=== PATIENT | male | born 1975 | race African-American/Black ===

== ENCOUNTER 2016-09-10 09:40 | Inpatient (IN) | payer MEDICARE, OTHER ==
[~2016-09-10] VITALS: Ht 177.8 cm; Wt 86.2 kg
[2016-09-10] VITALS (14 sets, daily range): BP systolic 97–181; BP diastolic 49–100
[~2016-09-10 09:40] MED LIST: AMIO200T2 PO; IPRA0.2S5 NEB; LACO1TAB PO; LINE600T PO; LORA2TAB IV; METO10TA81 IV
--- NOTE | 2016-09-10 14:41 | PDOC ---
Provider Note Provider Note dictated see orders REBEL LICONA MD Sep 10, 2016 14:41
[2016-09-10] MEDS ORDERED: PROPOFOL 10 MG/ML (100ML) VIAL. IV ONE (14:46)
[2016-09-10] MEDS ORDERED: PROPOFOL 100 ML IV ONE (14:46)
[2016-09-10 14:57] LABS: BASO # 0.1 x10^3/uL (0.0-0.2); BASO % 1 % (0-3); EOS % 3 % (0-3); HEMATOCRIT 28.6 % (39.0-53.0); HEMOGLOBIN 9.4 g/dL (13.0-17.5); LYMPH % 21 % (24-48); MEAN CORPUSCULAR HEMOGLOBIN 30 pg (25-35); MEAN CORPUSCULAR HGB CONC 33 g/dL (31-37); MEAN CORPUSCULAR VOLUME 90 fL (79-100); MONO % 8 % (0-9); NEUT % 67 % (31-73); PLATELET COUNT 274 x10^3/uL (140-400); RED BLOOD COUNT 3.19 x10^6/uL (4.30-5.70); RED CELL DISTRIBUTION WIDTH 15.9 % (11.5-14.5); WHITE BLOOD COUNT 14.3 x10^3/uL (4.0-11.0)
--- NOTE | 2016-09-10 15:02 | EKG ---
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
[2016-09-10 15:08] LABS: CALCIUM 9.3 mg/dL (8.5-10.1); GFR 44.3; POTASSIUM 3.5 mmol/L (3.5-5.1)
[2016-09-10 15:14] LABS: ALBUMIN 2.2 g/dL (3.4-5.0); ALBUMIN/GLOBULIN RATIO 0.4 (1.0-1.7); MAGNESIUM 1.2 mg/dL (1.8-2.4); TOTAL BILIRUBIN 0.6 mg/dL (0.2-1.0); TOTAL PROTEIN 7.9 g/dL (6.4-8.2)
--- NOTE | 2016-09-10 15:24 | PDOC2 ---
CARDIAC CONSULT DATE OF CONSULT Date of Consult DATE: 09/10/16 TIME: 15:16 REASON FOR CONSULT Reason for Consult: HTN REFERRING PHYSICIAN Referring Physician: Raad SOURCE Source: Chart review HISTORY OF PRESENT ILLNESS HISTORY OF PRESENT ILLNESS This is a 41 yo male who initially underwent thoracic aneurysm repair at [facility] 04/2016. Postoperative complications included respiratory failure requiring tracheostomy, acute renal failure, sepsis, and pneumonia. Also suffered large left sided CVA resulting in right-sided hemiplegia. Patient was transferred to [facility]. While at [facility], patient developed PICC line infection with speudomonas and was transferred to [facility] for treatment of sepsis and line removal. Was transferred to [facility] upon discharge for continued antibiotic therapy and trach management. Abdominal CT 09/04/16 notable for small bowel obstruction. Patient transferred to [facility] for further surgical evaluation and possible sepsis. BP 180/86 upon admission. Consult obtained for pre-op eval and hypertension. PAST MEDICAL HISTORY Cardiovascular: CHF, HTN, Hyperlipidemia, Other (thoracic aortic aneurysm) Pulmonary: Pneumonia, Other (chronic respiratory failure) CENTRAL NERVOUS SYSTEM: CVA (initial 11/2015; right side hemiparesis 04/2016), Seizure GI: Other (dysphagia; partial SBO) Heme/Onc: Anemia NOS, Other (LUE DVT) Hepatobiliary: Other (pancreatic syst) Infectious disease: Other (Sepsis; psuedomonas) Renal/: Chronic renal failure (ESRD) Endocrine: Diabetes PAST SURGICAL HISTORY Past Surgical History: Other (PEG placement; tracheostomy;thoracic aneurysm repair 04/23/2016 ) FAMILY HISTORY Family History: Diabetes, Hypertension SOCIAL HISTORY Smoke: Quit ALCOHOL: none Drugs: None Lives: Jail ALLERGIES ALLERGIES: Coded Allergies: aspirin (Verified Allergy, Intermediate, 09/07/16) ROS Review of System unobtainable PHYSICAL EXAM General: Other (eyes open, does not follow commands) HEENT: Atraumatic, Mucous membr. moist/pink, Other (tracheostomy ) Lungs: Other (coarse lung sounds; mechanical ventillation ) Heart: Regular rate, Normal S1, Normal S2, Other (distant heart tones) Abdomen: Soft, Other (distended, PEG tube in place ) Extremities: No edema, Normal pulses Skin: No significant lesion Neuro: Other (unable to assess ) Psych/Mental Status: Other (awake, calm ) MUSCULOSKELETAL: Other (right forearm and wrist splint, right-sided weakness) LABS Lab: Laboratory Tests Test 09/10/16 14:45 White Blood Count 14.3x10^3/uL (4.0-11.0) Red Blood Count 3.19x10^6/uL (4.30-5.70) Hemoglobin 9.4g/dL (13.0-17.5) Hematocrit 28.6% (39.0-53.0) Mean Corpuscular Volume 90fL (79-100) Mean Corpuscular Hemoglobin 30pg (25-35) Mean Corpuscular Hemoglobin Concent 33g/dL (31-37) Red Cell Distribution Width 15.9% (11.5-14.5) Platelet Count 274x10^3/uL (140-400) Neutrophils (%) (Auto) 67% (31-73) Lymphocytes (%) (Auto) 21% (24-48) Monocytes (%) (Auto) 8% (0-9) Eosinophils (%) (Auto) 3% (0-3) Basophils (%) (Auto) 1% (0-3) Neutrophils # (Auto) 9.6x10^3uL (1.8-7.7) Lymphocytes # (Auto) 3.0x10^3/uL (1.0-4.8) Monocytes # (Auto) 1.2x10^3/uL (0.0-1.1) Eosinophils # (Auto) 0.4x10^3/uL (0.0-0.7) Basophils # (Auto) 0.1x10^3/uL (0.0-0.2) Sodium Level 144mmol/L (136-145) Potassium Level 3.5mmol/L (3.5-5.1) Chloride Level 111mmol/L (98-107) Carbon Dioxide Level 22mmol/L (21-32) Anion Gap 11 (6-14) Blood Urea Nitrogen 29mg/dL (8-26) Creatinine 2.0mg/dL (0.7-1.3) Estimated GFR (Cockcroft-Gault) 44.3 BUN/Creatinine Ratio 15 (6-20) Glucose Level 100mg/dL (70-99) Calcium Level 9.3mg/dL (8.5-10.1) Magnesium Level 1.2mg/dL (1.8-2.4) Total Bilirubin 0.6mg/dL (0.2-1.0) Aspartate Amino Transf (AST/SGOT) 17U/L (15-37) Alanine Aminotransferase (ALT/SGPT) 17U/L (16-63) Alkaline Phosphatase 93U/L (46-116) Total Protein 7.9g/dL (6.4-8.2) Albumin 2.2g/dL (3.4-5.0) Albumin/Globulin Ratio 0.4 (1.0-1.7) ASSESSMENT/PLAN ASSESSMENT/PLAN 1. Hypertension 2. Small bowl obstruction 3. Sepsis 4. Chronic respiratory failure s/p tracheostomy 5. Chronic heart failure: clinically compensated 6. h/o AFIB?: on Amiodarone 7. h/o CVA 8. Diabetes Recommendations Obtain echo for preop eval Hold Amiodarone pending echo results. Obtain cardiac records from [place] stop clonidine and start metoprolol IV. Hydralazine IV PRN for hypertension Supportive care Problems: CLEO SIMEON APRN Sep 10, 2016 15:24
[2016-09-10 15:25] LABS: INR 1.2 (0.8-1.1); PROTHROMBIN TIME PATIENT 14.2 SEC (11.7-14.0)
--- NOTE | 2016-09-10 15:39 | CONS ---
DATE OF CONSULTATION: ATTENDING PHYSICIAN: Dr. Jane Shankar. REASON FOR CONSULTATION: Respiratory failure, small-bowel obstruction, possible sepsis. HISTORY OF PRESENT ILLNESS: The patient is a 41-year-old -[place] male, who has a history of thoracic aortic aneurysm repair in mid-April at [facility]. Postoperatively, he developed respiratory failure requiring tracheostomy and ventilator dependence. He had acute renal failure, sepsis and pneumonia. He subsequently also underwent PEG tube placement. He had a large left-sided CVA resulting in right-sided hemiplegia. He also had persistent encephalopathy. He was at [facility], where he subsequently was weaned off the ventilator to my recollection. However, his clinical condition from a neurological standpoint did not improve. He was then transferred to [facility] due to Pseudomonas line sepsis. His tunnel catheter was removed. He was treated with broad spectrum antibiotics and then transferred to [facility]. The patient is now being brought to [facility] due to development of a small-bowel obstruction, possible sepsis. He appears to be tachypneic ____ trach shield, but his abdominal distended. His blood pressure is in the 180 systolic. PAST MEDICAL HISTORY: History of pseudomonas sepsis due to CLABSI central line associated bloodstream infection, history of seizure disorder, history of massive stroke in 04/2016 with right-sided hemiparesis, history of renal failure, history of diabetes, history of persistent vegetative state, history of heart failure, history of pancreatic cyst history of infarction of the spleen, hematoma in the right colon, history of end-stage renal disease on hemodialysis, previously had been on the ventilator and has tracheostomy. PAST SURGICAL HISTORY: PEG tube and tracheostomy and AAA repair in 2016. ALLERGIES: TO ASPIRIN. REVIEW OF SYSTEMS: Unable to obtain from the patient. MEDICATIONS ON TRANSFER: Reviewed. PHYSICAL EXAMINATION: GENERAL: He is tachypneic and does not follow commands, but opens his eyes. HEENT: Sclerae is nonicteric. NECK: Supple. He has a dirty wound on his central line on the right side. LUNGS: With coarse rhonchi. CARDIOVASCULAR: Regular rate and tachycardia. ABDOMEN: Distended, decreased bowel sounds. EXTREMITIES: With trace pitting edema. LABORATORY DATA: From [facility] showed a white cell count of 13.0, hemoglobin 8.4 and platelets are 357. BUN 28, creatinine 1.8. IMPRESSION: 1. Oltcw-uv-fugjzor respiratory failure, suspect secondary to suspected sepsis/small-bowel obstruction. At this point, since he is tachypneic. I will place him on the ventilator. 2. 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 3. History of fungemia and sepsis. 4. Pneumonia. 5. History of congestive heart failure. 6. Recent small-bowel obstruction with early sepsis. 7. History of cardiac arrhythmias on amiodarone. 8. History of right upper extremity deep venous thrombosis. 9. Anemia. RECOMMENDATIONS: 1. We will place the patient on the ventilator. 2. Obtain ABGs and make necessary adjustment. 3. Mild sedation and narcotics. 4. Surgical consult. 5. Infectious disease consult and follow recommendation. 6. Follow cardiology recommendations. 7. Obtain lab CBC and lactic acid. 8. Follow renal function. 9. At some point, we will do follow up on upper extremity Dopplers. 10. SCDs for Deep venous thrombosis prophylaxis. 11. Enteral nutrition on hold due to small-bowel obstruction. 12. Further recommendations to follow. Discussed with RN and RT. Critical care time 39 minutes. REBEL LICONA MD DR: ALEX/lizette JOB#: [id number] / [id number] CITLALI
--- NOTE | 2016-09-10 16:01 | PDOC2 ---
GI CONSULT Reason For Consult: GI Bleed, Ileus HPI: HPI: 41 y/o AA male transferred to ICU from [facility] where he was undergoing treatment for line sepsis (pseudomonas). PMH as below, significant for trach and PEG in place. RN able to provide some history - apparently transferred for increased abdominal distention w/ h/o partial SBO on CT on 09/04/16. Feedings currently held. Last BM 09/08. Apparently bleeding is not a concern at this time. Pulm has seen, abd x-rays are pending, along w/ additional consults. EGD 08/29/[address] Shankar: LA Grade C reflux esophagitis, gastrostomy in place, non-bleeding gastric ulcer (biopsy w/ reactive gastropathy and negative for H. pylori), non-bleeding duodenal ulcer, and normal examined jejunum. At that time , PPI BID was recommended. Hgb 9.4 today, from 7.1 on 09/09, and 8.7 on 09/02. PMH: PMH: From chart - CAD, CHF, HTN, cardiac arrhythmia, CVA, chronic respiratory failure , ESRD on HD, DM, seizure disorder, LUE DVT, splenic infarct w/ hematoma of right colon, pancreatic cyst, thoracic aneurysm repair, tracheostomy, PEG placement FH: Family History: No pertinent hx Social History: Smoke: No ALCOHOL: none Drugs: None ROS: Unobtainable. VItals: Vitals: Please see EMR. Labs: Labs: Laboratory Tests Test 09/10/16 14:45 White Blood Count 14.3x10^3/uL (4.0-11.0) Red Blood Count 3.19x10^6/uL (4.30-5.70) Hemoglobin 9.4g/dL (13.0-17.5) Hematocrit 28.6% (39.0-53.0) Mean Corpuscular Volume 90fL (79-100) Mean Corpuscular Hemoglobin 30pg (25-35) Mean Corpuscular Hemoglobin Concent 33g/dL (31-37) Red Cell Distribution Width 15.9% (11.5-14.5) Platelet Count 274x10^3/uL (140-400) Neutrophils (%) (Auto) 67% (31-73) Lymphocytes (%) (Auto) 21% (24-48) Monocytes (%) (Auto) 8% (0-9) Eosinophils (%) (Auto) 3% (0-3) Basophils (%) (Auto) 1% (0-3) Neutrophils # (Auto) 9.6x10^3uL (1.8-7.7) Lymphocytes # (Auto) 3.0x10^3/uL (1.0-4.8) Monocytes # (Auto) 1.2x10^3/uL (0.0-1.1) Eosinophils # (Auto) 0.4x10^3/uL (0.0-0.7) Basophils # (Auto) 0.1x10^3/uL (0.0-0.2) Prothrombin Time 14.2SEC (11.7-14.0) Prothromb Time International Ratio 1.2 (0.8-1.1) Sodium Level 144mmol/L (136-145) Potassium Level 3.5mmol/L (3.5-5.1) Chloride Level 111mmol/L (98-107) Carbon Dioxide Level 22mmol/L (21-32) Anion Gap 11 (6-14) Blood Urea Nitrogen 29mg/dL (8-26) Creatinine 2.0mg/dL (0.7-1.3) Estimated GFR (Cockcroft-Gault) 44.3 BUN/Creatinine Ratio 15 (6-20) Glucose Level 100mg/dL (70-99) Calcium Level 9.3mg/dL (8.5-10.1) Magnesium Level 1.2mg/dL (1.8-2.4) Total Bilirubin 0.6mg/dL (0.2-1.0) Aspartate Amino Transf (AST/SGOT) 17U/L (15-37) Alanine Aminotransferase (ALT/SGPT) 17U/L (16-63) Alkaline Phosphatase 93U/L (46-116) Total Protein 7.9g/dL (6.4-8.2) Albumin 2.2g/dL (3.4-5.0) Albumin/Globulin Ratio 0.4 (1.0-1.7) Allergies: Coded Allergies: aspirin (Verified Allergy, Intermediate, 09/07/16) Medications: Please see EMR. Imaging: Imaging: Acute Abd Series 09/10/[address] A/P 09/04/16 IMPRESSION: 1. Mild distention of multiple mid small bowel loops suggesting partial small bowel obstruction. 2. Small cystic lesion in pancreatic tail, likely representing a small pseudocyst in this patient with a history of pancreatitis. A cystic pancreatic neoplasm cannot be excluded. 3. Tiny pleural effusions. 4. The NG tube, gastrostomy tube and Schaefer catheter are in satisfactory positions as described above. Upper GI and SB x-ray 08/23/16 IMPRESSION: 1. The NG tube and gastrostomy tube are in satisfactory positions. 2. Slow contrast emptying from the stomach. 3. Moderate gastroesophageal reflux. 4. Gaseous distention of small bowel loops with slow small bowel transit which may reflect an ileus or partial obstruction. Delayed abdominal radiographs are suggested for further evaluation. PE: GEN: NAD, having echocardiogram HEENT: atraumatic LUNGS: trach HEART: RRR ABD: BS quiet, probably distended, PEG in place w/ abd binder, ?non-tender EXTREMITY: no edema SKIN: no rashes NEURO/PSYCH: eyes open A/P: A/P: Abd distention -previous imaging w/ partial SBO -reports of increased distention at [facility] w/ last BM 09/[address] -feedings held currently Resp failure w/ trach, on vent PUD -non-bleeding gastric and duodenal ulcers on EGD 08/29/16 w/ Dr. Shankar Anemia -- Agree w/ holding feedings, NG to suction. Will review w/ Dr. Chase. Seems needs PPI w/ PUD. JOANN GIBBS Sep 10, 2016 16:01
--- NOTE | 2016-09-10 16:05 | RAD ---
EXAM: Two view abdomen with one view chest HISTORY: Small bowel obstruction. COMPARISON: 08/31/2016, 09/04/2016. FINDINGS: A frontal view of the chest and supine/upright views of the abdomen are obtained. There are no confluent infiltrates. There is mild atelectasis in the left base. There is no pneumothorax or pleural effusion. The heart is mildly enlarged. A right internal jugular central venous catheter has its tip in the superior cavoatrial junction A nasogastric tube has its tip in the stomach. A tracheostomy appliance is in expected position. Median sternotomy wires are noted. There is no pneumoperitoneum. Multiple moderately distended loops of small bowel persist in the mid and left abdomen. There is contrast in the right colon and rectum from a prior procedure. A gastrostomy catheter is noted. There is a small amount of gas distally. IMPRESSION: 1. No confluent infiltrates. Mild cardiomegaly. 2. Persistent small bowel dilatation with contrast distally in the colon. This suggests small bowel ileus or partial small bowel obstruction.
[2016-09-10] MEDS ORDERED: hydrALAZINE 20 MG/ML VIAL. IVP PRN (16:15)
--- NOTE | 2016-09-10 16:32 | CARD ---
APPROVED REPORT EXAM: Two-dimensional and M-mode echocardiogram with Doppler and color Doppler. Other Information Quality : GoodHR: 98bpm Rhythm : NSR INDICATION Chest Pain 2D DIMENSIONS RVDd1.9 (2.9-3.5cm)Left Atrium(2D)3.7 (1.6-4.0cm) IVSd1.3 (0.7-1.1cm)LVDd4.9 (3.9-5.9cm) LVOT Diameter2.4 (1.8-2.4cm)PWd1.2 (0.7-1.1cm) LVDs3.6 (2.5-4.0cm)FS (%) 26.0 % SV57.5 mlLVEF(%)50.8 (>50%) Aortic Valve AoV Peak Nazario.141.3cm/sAoV VTI22.9cm AO Peak GR.8.0mmHgLVOT Peak Nazario.106.2cm/s AO Mean GR.4mmHgAVA (VMAX)3.37cm2 Mitral Valve MV E Fnvytbox53.3cm/sMV E Peak Gr.3mmHg MV A Jtlmhgec405.1cm/sMV E Mean Gr.1mmHg E/A Ratio0.7MV A Flaljnmr32lb Pulmonary Valve PV Peak Vyxqbplr598.7cm/s Pulmonary Vein S1 Bfswdmkw18.9cm/sD2 Zqpyzzhp75.4cm/s PVa ixlaxrtd81wsis LEFT VENTRICLE The left ventricle is normal size. There is normal left ventricular wall thickness. The left ventricu lar systolic function is normal and the ejection fraction is within normal range. The Ejection Fracti on is 50-55%. Abnormal septal wall motion is noted suggestive of prior infarct/conduction abnormality . Transmitral Doppler flow pattern is Grade I-abnormal relaxation pattern. RIGHT VENTRICLE The right ventricle is normal size. There is normal right ventricular wall thickness. The right ventr icular systolic function is normal. ATRIA The left atrium size is normal. The right atrium size is normal. A catheter is seen in the right atri um consistent with history. The interatrial septum is intact with no evidence for an atrial septal de fect or patent foramen ovale as noted on 2-D or Doppler imaging. AORTIC VALVE The aortic valve is mildly thickened. The aortic valve is trileaflet. Doppler and Color Flow revealed no significant aortic regurgitation. There is no significant aortic valvular stenosis. MITRAL VALVE Mitral annular calcification is mild. The mitral valve leaflets are thickened. There is no evidence o f mitral valve prolapse. There is no mitral valve stenosis. Doppler and Color Flow revealed trace steffi ral regurgitation. TRICUSPID VALVE The tricuspid valve is normal in structure and function. Doppler and Color Flow revealed no tricuspid valve regurgitation noted. There is no tricuspid valve stenosis. PULMONIC VALVE Doppler and Color Flow revealed no pulmonic valvular regurgitation. There is no pulmonic valvular shelia nosis. GREAT VESSELS The aortic root is normal in size. The ascending aorta is normal in size. A subcostal window was not available, the IVC could not be assessed. PERICARDIAL EFFUSION There is no evidence of significant pericardial effusion. Critical Notification Critical Value: No <Conclusion> The left ventricular systolic function is normal and the ejection fraction is within normal range. Th e Ejection Fraction is 50-55%. Abnormal septal wall motion is noted suggestive of prior infarct/conduction abnormality. The right atrium size is normal. A catheter is seen in the right atrium consistent with history. Technically difficult study No clear valvular lesions noted.
[2016-09-10 16:51] LABS: HCO3 ABG 19 mmol/L (21-28); PCO2 ABG 35 mmHg (35-46); PH ABG 7.34 (7.35-7.45); PO2 ABG 203 mmHg (75-108); SAT O2 ABG 99 % (92-99)
[2016-09-10 16:54] LABS: FIO2 ABG 50
[2016-09-10] MEDS ORDERED: SODIUM BICARB ADULT 8.4% 50 MEQ/50 ML DISP.SYRIN. IV ONE (18:00)
[2016-09-10] MEDS: METOPROLOL TARTRATE 5 MG/5 ML VIAL. IVP SCH (18:00)
[2016-09-10] MEDS: PANTOPRAZOLE IV PUSH 40 MG VIAL. IVP SCH (18:20)
[2016-09-10] MEDS ORDERED: MAGNESIUM SULFATE 4GM 100 ML IV ONE (20:00)
[2016-09-10] MEDS: POTASSIUM CL 40MEQ IN 0.9%NACL 1,000 ML IV SCH (20:27)
[2016-09-10] MEDS: PROPOFOL 100 ML IV PRN (20:33)
[2016-09-10] MEDS ORDERED: 0.9 % SODIUM CHLORIDE 3ML DISP.SYRIN. IV PRN (20:45)
[2016-09-10] MEDS ORDERED: LORAZEPAM 2 MG/ML VIAL IV PRN (20:45)
[2016-09-10] MEDS ORDERED: ACETAMINOPHEN 650 MG/20.3 ML SOLUTION. PEG PRN (20:45)
[2016-09-10] MEDS ORDERED: ONDANSETRON PF 4 MG/2 ML VIAL. IV PRN (20:45)
[2016-09-10] MEDS ORDERED: FENTANYL PF 100 MCG/2 ML VIAL. IV PRN (20:45)
[2016-09-10] MEDS ORDERED: METOCLOPRAMIDE HCL 10 MG/2 ML VIAL. IV PRN (20:45)
[2016-09-10] MEDS: MICAFUNGIN 100 MG in IV DEXTROSE 5% 100 ML IV SCH (20:57)
[2016-09-10] MEDS ORDERED: MICONAZOLE NITRATE 2% TOPICAL CREAM 28GM TUBE. TP SCH (21:00)
[2016-09-10] MEDS ORDERED: ALTEPLASE 2 MG VIAL INT CAT ONE (22:00)
[2016-09-10] MEDS: CEFEPIME HCL 2 GM in IV NORMAL SALINE 100ML 100 ML IV SCH (22:43)
[2016-09-11] VITALS (22 sets, daily range): BP systolic 82–188; BP diastolic 46–96
[2016-09-11] MEDS: ERYTHROMYCIN LACT 125 MG in IV NORMAL SALINE 100ML 100 ML IV SCH ×4 (00:01→17:28)
[2016-09-11] MEDS ORDERED: IV NORMAL SALINE 500ML BAG 500 ML IV ONE (01:00)
[2016-09-11] MEDS: PROPOFOL 100 ML IV PRN ×3 (02:04→16:28)
[2016-09-11] MEDS ORDERED: IV NORMAL SALINE 1000ML BAG 1,000 ML IV ONE (02:30)
[2016-09-11] MEDS ORDERED: LORA0.5T IV (03:09)
[2016-09-11] MEDS ORDERED: FENT1PAT15 IV (03:09)
[2016-09-11] MEDS ORDERED: MICO130A9 TP (03:09)
[2016-09-11] MEDS ORDERED: ONDA4DIS IV (03:09)
[2016-09-11] MEDS ORDERED: AMIO200T2 PEG (03:09)
[2016-09-11] MEDS ORDERED: DOCU100C5 PEG (03:09)
[2016-09-11] MEDS ORDERED: AMLO10TA2 PEG (03:09)
[2016-09-11] MEDS ORDERED: ONDA4TAB12 PEG (03:09)
[2016-09-11] MEDS ORDERED: ACET160S PEG (03:09)
[2016-09-11] MEDS ORDERED: CEFE2VIA5 IV (03:09)
[2016-09-11] MEDS ORDERED: [UNRECOGNIZED DRUG - CODE] IV (03:09)
[2016-09-11] MEDS ORDERED: HYDR-2867 IV (03:09)
[2016-09-11] MEDS ORDERED: PANT40TA5 IV (03:09)
[2016-09-11] MEDS ORDERED: [UNRECOGNIZED DRUG - CODE] IV (03:09)
[2016-09-11] MEDS ORDERED: IPRA3AMP NEB (03:09)
[2016-09-11] MEDS ORDERED: METO10TA81 IV (03:09)
[2016-09-11] MEDS: POTASSIUM CL 40MEQ IN 0.9%NACL 1,000 ML IV SCH (06:07)
[2016-09-11] MEDS: METOCLOPRAMIDE HCL 10 MG/2 ML VIAL. IV SCH ×3 (06:11→22:08)
[2016-09-11] MEDS: PANTOPRAZOLE IV PUSH 40 MG VIAL. IVP SCH ×2 (06:12→17:33)
[2016-09-11 06:20] LABS: BASO # 0.1 x10^3/uL (0.0-0.2); BASO % 1 % (0-3); EOS % 5 % (0-3); HEMATOCRIT 25.1 % (39.0-53.0); HEMOGLOBIN 8.5 g/dL (13.0-17.5); LYMPH # 3.3 x10^3/uL (1.0-4.8); LYMPH % 31 % (24-48); MEAN CORPUSCULAR HEMOGLOBIN 30 pg (25-35); MEAN CORPUSCULAR HGB CONC 34 g/dL (31-37); MEAN CORPUSCULAR VOLUME 89 fL (79-100); MONO % 11 % (0-9); NEUT % 53 % (31-73); PLATELET COUNT 275 x10^3/uL (140-400); RED BLOOD COUNT 2.83 x10^6/uL (4.30-5.70); RED CELL DISTRIBUTION WIDTH 16.7 % (11.5-14.5); WHITE BLOOD COUNT 10.6 x10^3/uL (4.0-11.0)
[2016-09-11] MEDS: METOPROLOL TARTRATE 5 MG/5 ML VIAL. IVP SCH ×4 (06:20→17:30)
[2016-09-11 06:28] LABS: INR 1.3 (0.8-1.1)
[2016-09-11 06:30] LABS: ALBUMIN/GLOBULIN RATIO 0.4 (1.0-1.7); CALCIUM 9.1 mg/dL (8.5-10.1); CREATININE 2.6 mg/dL (0.7-1.3); GFR 32.8; MAGNESIUM 2.2 mg/dL (1.8-2.4); POTASSIUM 3.6 mmol/L (3.5-5.1); TOTAL BILIRUBIN 0.3 mg/dL (0.2-1.0); TOTAL PROTEIN 7.1 g/dL (6.4-8.2)
[2016-09-11] MEDS: hydrALAZINE 20 MG/ML VIAL. IVP SCH ×4 (06:33→17:28)
[2016-09-11] MEDS ORDERED: CEFAZOLIN 2GM PREMIX 50 ML IV PRN (07:00)
--- NOTE | 2016-09-11 07:19 | PDOC ---
Provider Note Provider Note Patient seen. History and Physical to follow. Prognosis is very poor. Surgery for persistent partial Small bowel obstruction not responding to aggressive conservative management. Patient remains high risk for surgery. Condition,Rx d/w . Patient is sleeping on Propofol. Labs,x rays reviewed.continue IV fluids ,antibiotics. KAYLIE FAJARDO MD Sep 11, 2016 07:19
[2016-09-11] MEDS ORDERED: PROPOFOL 20 ML IV ONE (07:36)
[2016-09-11] MEDS ORDERED: DEXAMETHASONE SOD PHOS 20 MG/5 ML VIAL. ONE (07:36)
[2016-09-11] MEDS ORDERED: ONDANSETRON PF 4 MG/2 ML VIAL. ONE (07:36)
--- NOTE | 2016-09-11 07:36 | PDOC ---
MODERATE SEDATION ASSESSMENT RISKS/ALTERNATIVES Risks/Alternatives Risks and alternatives of this type of sedation and procedure discussed with: RISK/ALTERNATIVES: Patient H & P ON CHART H & P H & P on chart and reviewed for co-morbid conditions and appropriate labs. H&P ON CHART: Yes STATUS PREG STATUS ASSESSED: N/A MEDS/ALLERGIES REVIEWED Meds/Allergies Reviewed Medications and Allergies including time and route of recently administered narcotics and sedatives. MEDS/ALLERGIES REVIEWED: Yes ASA RATING ASA RATING: II AIRWAY ASSESSMENT Airway Assessment Airway patency, oral function limitations, presence of caps, crowns, dentures, partials, and ability to extend neck assessed. AIRWAY ASSESSMENT: Yes MALLAMPATI SCORE MALLAMPATI SCORE: II PRE-SEDATION ASSESSMENT PRE-SEDATION ASSESSMENT: Yes ULICES RIVERA MD Sep 11, 2016 07:36
[2016-09-11] MEDS ORDERED: FENTANYL PF 100 MCG/2 ML VIAL. ONE (07:37)
[2016-09-11] MEDS ORDERED: DESFLURANE 61 TO 120 MINUTES IH ONE (07:37)
[2016-09-11] MEDS ORDERED: ROCURONIUM 50 MG/5 ML VIAL. ONE (07:37)
--- NOTE | 2016-09-11 07:56 | PDOC ---
SURGICAL PROGRESS NOTE Subjective 41 yo M with SBO vs ileus TO OR for lap vs open exploration R/B/A d/w pt's at bedside Thanks for consult! [id number] Vital Signs Vital Signs Date Time Temp Pulse Resp B/P Pulse Ox O2 Delivery O2 Flow Rate FiO2 09/11/16 07:00 70 16 82/46 100 Ventilator 09/11/16 05:00 97.9 97.9 I&O Intake and Output 09/11/16 07:00 Intake Total 2050 ml Output Total 1055 ml Balance 995 ml Intake Oral 0 ml IV Total 2050 ml Tube Feeding 0 ml Output Urine Total 555 ml Gastric Drainage Total 500 ml Labs Laboratory Tests Test 09/10/16 14:45 09/10/16 16:25 09/11/16 05:45 White Blood Count 14.3x10^3/uL (4.0-11.0) 10.6x10^3/uL (4.0-11.0) Red Blood Count 3.19x10^6/uL (4.30-5.70) 2.83x10^6/uL (4.30-5.70) Hemoglobin 9.4g/dL (13.0-17.5) 8.5g/dL (13.0-17.5) Hematocrit 28.6% (39.0-53.0) 25.1% (39.0-53.0) Mean Corpuscular Volume 90fL (79-100) 89fL (79-100) Mean Corpuscular Hemoglobin 30pg (25-35) 30pg (25-35) Mean Corpuscular Hemoglobin Concent 33g/dL (31-37) 34g/dL (31-37) Red Cell Distribution Width 15.9% (11.5-14.5) 16.7% (11.5-14.5) Platelet Count 274x10^3/uL (140-400) 275x10^3/uL (140-400) Neutrophils (%) (Auto) 67% (31-73) 53% (31-73) Lymphocytes (%) (Auto) 21% (24-48) 31% (24-48) Monocytes (%) (Auto) 8% (0-9) 11% (0-9) Eosinophils (%) (Auto) 3% (0-3) 5% (0-3) Basophils (%) (Auto) 1% (0-3) 1% (0-3) Neutrophils # (Auto) 9.6x10^3uL (1.8-7.7) 5.6x10^3uL (1.8-7.7) Lymphocytes # (Auto) 3.0x10^3/uL (1.0-4.8) 3.3x10^3/uL (1.0-4.8) Monocytes # (Auto) 1.2x10^3/uL (0.0-1.1) 1.1x10^3/uL (0.0-1.1) Eosinophils # (Auto) 0.4x10^3/uL (0.0-0.7) 0.5x10^3/uL (0.0-0.7) Basophils # (Auto) 0.1x10^3/uL (0.0-0.2) 0.1x10^3/uL (0.0-0.2) Prothrombin Time 14.2SEC (11.7-14.0) 15.0SEC (11.7-14.0) Prothromb Time International Ratio 1.2 (0.8-1.1) 1.3 (0.8-1.1) Nasal Screen MRSA (PCR) Negative (Negative) Sodium Level 144mmol/L (136-145) 146mmol/L (136-145) Potassium Level 3.5mmol/L (3.5-5.1) 3.6mmol/L (3.5-5.1) Chloride Level 111mmol/L (98-107) 114mmol/L (98-107) Carbon Dioxide Level 22mmol/L (21-32) 20mmol/L (21-32) Anion Gap 11 (6-14) 12 (6-14) Blood Urea Nitrogen 29mg/dL (8-26) 31mg/dL (8-26) Creatinine 2.0mg/dL (0.7-1.3) 2.6mg/dL (0.7-1.3) Estimated GFR (Cockcroft-Gault) 44.3 32.8 BUN/Creatinine Ratio 15 (6-20) 12 (6-20) Glucose Level 100mg/dL (70-99) 81mg/dL (70-99) Lactic Acid Level 1.0mmol/L (0.4-2.0) Calcium Level 9.3mg/dL (8.5-10.1) 9.1mg/dL (8.5-10.1) Magnesium Level 1.2mg/dL (1.8-2.4) 2.2mg/dL (1.8-2.4) Total Bilirubin 0.6mg/dL (0.2-1.0) 0.3mg/dL (0.2-1.0) Aspartate Amino Transf (AST/SGOT) 17U/L (15-37) 21U/L (15-37) Alanine Aminotransferase (ALT/SGPT) 17U/L (16-63) 16U/L (16-63) Alkaline Phosphatase 93U/L (46-116) 89U/L (46-116) Total Protein 7.9g/dL (6.4-8.2) 7.1g/dL (6.4-8.2) Albumin 2.2g/dL (3.4-5.0) 2.0g/dL (3.4-5.0) Albumin/Globulin Ratio 0.4 (1.0-1.7) 0.4 (1.0-1.7) O2 Saturation 99% (92-99) Arterial Blood pH 7.34 (7.35-7.45) Arterial Blood pCO2 at Patient Temp 35mmHg (35-46) Arterial Blood pO2 at Patient Temp 203mmHg (75-108) Arterial Blood HCO3 19mmol/L (21-28) Arterial Blood Base Excess -7mmol/L (-3-3) FiO2 50 Laboratory Tests Test 09/10/16 14:45 09/10/16 16:25 09/11/16 05:45 White Blood Count 14.3x10^3/uL (4.0-11.0) 10.6x10^3/uL (4.0-11.0) Red Blood Count 3.19x10^6/uL (4.30-5.70) 2.83x10^6/uL (4.30-5.70) Hemoglobin 9.4g/dL (13.0-17.5) 8.5g/dL (13.0-17.5) Hematocrit 28.6% (39.0-53.0) 25.1% (39.0-53.0) Mean Corpuscular Volume 90fL (79-100) 89fL (79-100) Mean Corpuscular Hemoglobin 30pg (25-35) 30pg (25-35) Mean Corpuscular Hemoglobin Concent 33g/dL (31-37) 34g/dL (31-37) Red Cell Distribution Width 15.9% (11.5-14.5) 16.7% (11.5-14.5) Platelet Count 274x10^3/uL (140-400) 275x10^3/uL (140-400) Neutrophils (%) (Auto) 67% (31-73) 53% (31-73) Lymphocytes (%) (Auto) 21% (24-48) 31% (24-48) Monocytes (%) (Auto) 8% (0-9) 11% (0-9) Eosinophils (%) (Auto) 3% (0-3) 5% (0-3) Basophils (%) (Auto) 1% (0-3) 1% (0-3) Neutrophils # (Auto) 9.6x10^3uL (1.8-7.7) 5.6x10^3uL (1.8-7.7) Lymphocytes # (Auto) 3.0x10^3/uL (1.0-4.8) 3.3x10^3/uL (1.0-4.8) Monocytes # (Auto) 1.2x10^3/uL (0.0-1.1) 1.1x10^3/uL (0.0-1.1) Eosinophils # (Auto) 0.4x10^3/uL (0.0-0.7) 0.5x10^3/uL (0.0-0.7) Basophils # (Auto) 0.1x10^3/uL (0.0-0.2) 0.1x10^3/uL (0.0-0.2) Prothrombin Time 14.2SEC (11.7-14.0) 15.0SEC (11.7-14.0) Prothromb Time International Ratio 1.2 (0.8-1.1) 1.3 (0.8-1.1) Nasal Screen MRSA (PCR) Negative (Negative) Sodium Level 144mmol/L (136-145) 146mmol/L (136-145) Potassium Level 3.5mmol/L (3.5-5.1) 3.6mmol/L (3.5-5.1) Chloride Level 111mmol/L (98-107) 114mmol/L (98-107) Carbon Dioxide Level 22mmol/L (21-32) 20mmol/L (21-32) Anion Gap 11 (6-14) 12 (6-14) Blood Urea Nitrogen 29mg/dL (8-26) 31mg/dL (8-26) Creatinine 2.0mg/dL (0.7-1.3) 2.6mg/dL (0.7-1.3) Estimated GFR (Cockcroft-Gault) 44.3 32.8 BUN/Creatinine Ratio 15 (6-20) 12 (6-20) Glucose Level 100mg/dL (70-99) 81mg/dL (70-99) Lactic Acid Level 1.0mmol/L (0.4-2.0) Calcium Level 9.3mg/dL (8.5-10.1) 9.1mg/dL (8.5-10.1) Magnesium Level 1.2mg/dL (1.8-2.4) 2.2mg/dL (1.8-2.4) Total Bilirubin 0.6mg/dL (0.2-1.0) 0.3mg/dL (0.2-1.0) Aspartate Amino Transf (AST/SGOT) 17U/L (15-37) 21U/L (15-37) Alanine Aminotransferase (ALT/SGPT) 17U/L (16-63) 16U/L (16-63) Alkaline Phosphatase 93U/L (46-116) 89U/L (46-116) Total Protein 7.9g/dL (6.4-8.2) 7.1g/dL (6.4-8.2) Albumin 2.2g/dL (3.4-5.0) 2.0g/dL (3.4-5.0) Albumin/Globulin Ratio 0.4 (1.0-1.7) 0.4 (1.0-1.7) O2 Saturation 99% (92-99) Arterial Blood pH 7.34 (7.35-7.45) Arterial Blood pCO2 at Patient Temp 35mmHg (35-46) Arterial Blood pO2 at Patient Temp 203mmHg (75-108) Arterial Blood HCO3 19mmol/L (21-28) Arterial Blood Base Excess -7mmol/L (-3-3) FiO2 50 BLU HODGSON MD Sep 11, 2016 07:56
[2016-09-11] MEDS ORDERED: CEFAZOLIN 2GM PREMIX 50 ML IV SCH (08:00)
--- NOTE | 2016-09-11 08:03 | PDOC1 ---
LUZ ELENA CHONG AMPLIFIER MECHANIC 09/11/16 0803: HISTORY AND PHYSICAL Chief Complaint Chief Complaint This 41 year old Amercian male has been admitted with a chief complaint of partial bowel obstruction. He is non responsive and information is obtained from [facility] records. He was admitted to [facility] on for ongoing treatment PSA sepsis due with ongoing antibiotics due to central line blood stream infection, chronic respiratory failure, and multiple medical problems. He had undergone throacic aortic dissection repair on . 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 He developed PICC line infection at [facility] and PICC was removed. Post CVA he has a PEG and trach placed chronically. He developed a partial bowel obstruction that was treated medically. The CT on 09/04/16 continued mild distention multiple mid SB loops. His ETF was stopped and TPN initiated. He also developed isamar parapsilosis sepsis and was started on Micafungin. He developed DVT LUE and was started on Heparin. This was stopped due to questionable GIB. On he had malignant HTN and was started on Lopressor IV. He has a h/o ARF with ESRD post surgery 04/2016 and is on HD 3 times weekly. He is admitted to the ICU at [facility] for surgical intervention today- SBO repair. He was tachypneic when seen by pulmonary and MV initiated per trach. Past Medical History Cardiovascular: CHF (diastolic EF 50-55% ), HTN, Hyperlipidemia, Other ( thoracic aortic aneurysm dissection with repair 04/2016) Pulmonary: Pneumonia, Other (chronic respiratory failure with trach ) CENTRAL NERVOUS SYSTEM: CVA (initial 11/2015 miold R sided hemiparesis with Large acute L CVA post thoracic dissection repair with right side hemiparesis , dysphagia, encephalopathy ), Seizure, Other (encephalopathy post CVA with non responsiveness) GI: GI bleed (suspected recent ), Other (dysphagia; partial SBO; hematoma R colon ) Heme/Onc: Anemia NOS (chronic with ESRD/sepsis ), Other (LUE DVT-Heparin stopped due to question GIB; h/o splenic infarct) Hepatobiliary: Other (pancreatic cyst) Psych: Other (encephalopathy ) Infectious disease: Other (PSA sepsis due to central line blood stream infection; isamar parapsilosis sepsis) Renal/: Chronic renal failure (ESRD with HD 3time weekly ) Endocrine: Diabetes (Type II ) Past Surgical History Past Surgical History: Other (PEG placement; tracheostomy; dissecting thoracic aneurysm repair 04/23/2016 ) Past Family History Family History: Diabetes, Hypertension Past Social History PSH , remote h/o tobacco, neg ETOH or illicit drug use Review of Symptoms Review of Symptoms A 14 point ROS was completed with the following noted as positive: unable to obtain, unresponsive Other systems reviewed and negative. Medications Medications reviewed and reconciled for admission Allergy Allergies Coded Allergies Type Severity Reaction Last Updated Verified aspirin Allergy Intermediate 09/07/16 Yes Physical Exam Physical Exam General appearance - non responsive,no distress Mental Status - non responsive Head - normal Neck- CL R neck, wound present-see pictures, trach midline to MV Chest - clear to auscultation, no wheezes, rales or rhonchi, symmetric air entry Heart - S1 and S2 normal Abdomen - firm, distended, BS +RLQ, CT clamped Neurological - non responsive Musculoskeletal - no muscular tenderness noted Extremities - no pedal edema, SCD ELIAS Skin - warm and dry VTE Prophylaxis Ordered VTE Prophylaxis Devices: Yes VTE Pharmacological Prophylaxi: No Assessment Labs Laboratory Tests Test 09/10/16 14:45 09/10/16 16:25 09/11/16 05:45 White Blood Count 14.3x10^3/uL (4.0-11.0) 10.6x10^3/uL (4.0-11.0) Red Blood Count 3.19x10^6/uL (4.30-5.70) 2.83x10^6/uL (4.30-5.70) Hemoglobin 9.4g/dL (13.0-17.5) 8.5g/dL (13.0-17.5) Hematocrit 28.6% (39.0-53.0) 25.1% (39.0-53.0) Mean Corpuscular Volume 90fL (79-100) 89fL (79-100) Mean Corpuscular Hemoglobin 30pg (25-35) 30pg (25-35) Mean Corpuscular Hemoglobin Concent 33g/dL (31-37) 34g/dL (31-37) Red Cell Distribution Width 15.9% (11.5-14.5) 16.7% (11.5-14.5) Platelet Count 274x10^3/uL (140-400) 275x10^3/uL (140-400) Neutrophils (%) (Auto) 67% (31-73) 53% (31-73) Lymphocytes (%) (Auto) 21% (24-48) 31% (24-48) Monocytes (%) (Auto) 8% (0-9) 11% (0-9) Eosinophils (%) (Auto) 3% (0-3) 5% (0-3) Basophils (%) (Auto) 1% (0-3) 1% (0-3) Neutrophils # (Auto) 9.6x10^3uL (1.8-7.7) 5.6x10^3uL (1.8-7.7) Lymphocytes # (Auto) 3.0x10^3/uL (1.0-4.8) 3.3x10^3/uL (1.0-4.8) Monocytes # (Auto) 1.2x10^3/uL (0.0-1.1) 1.1x10^3/uL (0.0-1.1) Eosinophils # (Auto) 0.4x10^3/uL (0.0-0.7) 0.5x10^3/uL (0.0-0.7) Basophils # (Auto) 0.1x10^3/uL (0.0-0.2) 0.1x10^3/uL (0.0-0.2) Prothrombin Time 14.2SEC (11.7-14.0) 15.0SEC (11.7-14.0) Prothromb Time International Ratio 1.2 (0.8-1.1) 1.3 (0.8-1.1) Nasal Screen MRSA (PCR) Negative (Negative) Sodium Level 144mmol/L (136-145) 146mmol/L (136-145) Potassium Level 3.5mmol/L (3.5-5.1) 3.6mmol/L (3.5-5.1) Chloride Level 111mmol/L (98-107) 114mmol/L (98-107) Carbon Dioxide Level 22mmol/L (21-32) 20mmol/L (21-32) Anion Gap 11 (6-14) 12 (6-14) Blood Urea Nitrogen 29mg/dL (8-26) 31mg/dL (8-26) Creatinine 2.0mg/dL (0.7-1.3) 2.6mg/dL (0.7-1.3) Estimated GFR (Cockcroft-Gault) 44.3 32.8 BUN/Creatinine Ratio 15 (6-20) 12 (6-20) Glucose Level 100mg/dL (70-99) 81mg/dL (70-99) Lactic Acid Level 1.0mmol/L (0.4-2.0) Calcium Level 9.3mg/dL (8.5-10.1) 9.1mg/dL (8.5-10.1) Magnesium Level 1.2mg/dL (1.8-2.4) 2.2mg/dL (1.8-2.4) Total Bilirubin 0.6mg/dL (0.2-1.0) 0.3mg/dL (0.2-1.0) Aspartate Amino Transf (AST/SGOT) 17U/L (15-37) 21U/L (15-37) Alanine Aminotransferase (ALT/SGPT) 17U/L (16-63) 16U/L (16-63) Alkaline Phosphatase 93U/L (46-116) 89U/L (46-116) Total Protein 7.9g/dL (6.4-8.2) 7.1g/dL (6.4-8.2) Albumin 2.2g/dL (3.4-5.0) 2.0g/dL (3.4-5.0) Albumin/Globulin Ratio 0.4 (1.0-1.7) 0.4 (1.0-1.7) O2 Saturation 99% (92-99) Arterial Blood pH 7.34 (7.35-7.45) Arterial Blood pCO2 at Patient Temp 35mmHg (35-46) Arterial Blood pO2 at Patient Temp 203mmHg (75-108) Arterial Blood HCO3 19mmol/L (21-28) Arterial Blood Base Excess -7mmol/L (-3-3) FiO2 50 Laboratory Tests Test 09/10/16 14:45 09/10/16 16:25 3/7/17 05:45 White Blood Count 14.3x10^3/uL (4.0-11.0) 10.6x10^3/uL (4.0-11.0) Red Blood Count 3.19x10^6/uL (4.30-5.70) 2.83x10^6/uL (4.30-5.70) Hemoglobin 9.4g/dL (13.0-17.5) 8.5g/dL (13.0-17.5) Hematocrit 28.6% (39.0-53.0) 25.1% (39.0-53.0) Mean Corpuscular Volume 90fL (79-100) 89fL (79-100) Mean Corpuscular Hemoglobin 30pg (25-35) 30pg (25-35) Mean Corpuscular Hemoglobin Concent 33g/dL (31-37) 34g/dL (31-37) Red Cell Distribution Width 15.9% (11.5-14.5) 16.7% (11.5-14.5) Platelet Count 274x10^3/uL (140-400) 275x10^3/uL (140-400) Neutrophils (%) (Auto) 67% (31-73) 53% (31-73) Lymphocytes (%) (Auto) 21% (24-48) 31% (24-48) Monocytes (%) (Auto) 8% (0-9) 11% (0-9) Eosinophils (%) (Auto) 3% (0-3) 5% (0-3) Basophils (%) (Auto) 1% (0-3) 1% (0-3) Neutrophils # (Auto) 9.6x10^3uL (1.8-7.7) 5.6x10^3uL (1.8-7.7) Lymphocytes # (Auto) 3.0x10^3/uL (1.0-4.8) 3.3x10^3/uL (1.0-4.8) Monocytes # (Auto) 1.2x10^3/uL (0.0-1.1) 1.1x10^3/uL (0.0-1.1) Eosinophils # (Auto) 0.4x10^3/uL (0.0-0.7) 0.5x10^3/uL (0.0-0.7) Basophils # (Auto) 0.1x10^3/uL (0.0-0.2) 0.1x10^3/uL (0.0-0.2) Prothrombin Time 14.2SEC (11.7-14.0) 15.0SEC (11.7-14.0) Prothromb Time International Ratio 1.2 (0.8-1.1) 1.3 (0.8-1.1) Nasal Screen MRSA (PCR) Negative (Negative) Sodium Level 144mmol/L (136-145) 146mmol/L (136-145) Potassium Level 3.5mmol/L (3.5-5.1) 3.6mmol/L (3.5-5.1) Chloride Level 111mmol/L (98-107) 114mmol/L (98-107) Carbon Dioxide Level 22mmol/L (21-32) 20mmol/L (21-32) Anion Gap 11 (6-14) 12 (6-14) Blood Urea Nitrogen 29mg/dL (8-26) 31mg/dL (8-26) Creatinine 2.0mg/dL (0.7-1.3) 2.6mg/dL (0.7-1.3) Estimated GFR (Cockcroft-Gault) 44.3 32.8 BUN/Creatinine Ratio 15 (6-20) 12 (6-20) Glucose Level 100mg/dL (70-99) 81mg/dL (70-99) Lactic Acid Level 1.0mmol/L (0.4-2.0) Calcium Level 9.3mg/dL (8.5-10.1) 9.1mg/dL (8.5-10.1) Magnesium Level 1.2mg/dL (1.8-2.4) 2.2mg/dL (1.8-2.4) Total Bilirubin 0.6mg/dL (0.2-1.0) 0.3mg/dL (0.2-1.0) Aspartate Amino Transf (AST/SGOT) 17U/L (15-37) 21U/L (15-37) Alanine Aminotransferase (ALT/SGPT) 17U/L (16-63) 16U/L (16-63) Alkaline Phosphatase 93U/L (46-116) 89U/L (46-116) Total Protein 7.9g/dL (6.4-8.2) 7.1g/dL (6.4-8.2) Albumin 2.2g/dL (3.4-5.0) 2.0g/dL (3.4-5.0) Albumin/Globulin Ratio 0.4 (1.0-1.7) 0.4 (1.0-1.7) O2 Saturation 99% (92-99) Arterial Blood pH 7.34 (7.35-7.45) Arterial Blood pCO2 at Patient Temp 35mmHg (35-46) Arterial Blood pO2 at Patient Temp 203mmHg (75-108) Arterial Blood HCO3 19mmol/L (21-28) Arterial Blood Base Excess -7mmol/L (-3-3) FiO2 50 Plan Plan IMPRESSION: 1. SBO 2. Isamar parapsilosis sepsis 3. PSA sepsis due to central line blood stream infection 4. DVT LUE with suspected GIB recent 5. 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 HTN 7. anemia CD/ESRD-sepsis 8. ESRD post ARF with HD 3 times weekly 9. suspected GIB 10. DM II 11. seizure disorder Mar 2016 12. h/o splenic infarct 13, pancreatic cyst 14. chronic trach 15. PEG chronic 16. dysphagia with chronic ETF 17. encephalopathy -non responsive post CVA 18. diastolic CHF EF 50-55% not acute 19. chronic respiratory failure with trach 20. tachypneic secondary to sepsis upon admission with MV initiated-not acute respiratory failure 21. pneumonia 22. severe PCL malnutrition 23. hypomagnesia PLAN: SBO NPO surgical consult repair planned 09/11/16 GI consult cardiology consult -surgical clearance Sepsis ID consult IV antibiotics Cefepime, Erythromycin, and Micafungin Admit WBC 14.3 09/11 10.6 chronic respiratory failure pulmonary consult vent nebulizer tx trach chronic ESRD renal consult HD 3 times weekly Admit Mg 1.2-Mg SO4 4gm IV 09/11 2.2 K 3.5 09/12 3.6 monitor anemia CD Admit Hgb 9.4 03/07 8.5 TC 2 unit for surgery ?recent GIB-Protonix 40 IV BID monitor DVT LUE ?recent GIB continue eval/monitor HTN malignant 09/10 with lopressor IV initiated stable seizure disorder continue Vimpat -change to IV until ok to resume PEG meds monitor DVT/GI prophylaxis SCD/ELIAS PPI For more details regarding further plans, please refer to the orders. KAYLIE FAJARDO MD 09/11/16 1010: HISTORY AND PHYSICAL Plan Plan BP very high yesterday and then low. Given Propofol,IV fluids,various BP meds. STEPHENIE with CKD. D/w ,[place],. D/w - had 2 areas of obstruction. d/w as noted earlier. Prognosis is poor. The patient was seen and examined by me. Chart reviewed and plan of care formulated. Discussed with, reviewed and agree with REMOTE SENSING SURVEYOR's notes, plan of care and orders with modifications as necessary. For more details regarding further plans, please refer to the orders. Total critical care management 45 minutes. LUZ ELENA CHONG APRN Sep 11, 2016 08:03 KAYLIE FAJARDO MD Sep 11, 2016 10:10
--- NOTE | 2016-09-11 08:17 | RAD ---
EXAM: Chest one view. HISTORY: Respiratory failure. COMPARISON: 09/10/2016. FINDINGS: A frontal view of the chest is obtained. A tracheostomy appliance projects in expected position. A nasogastric tube has its tip in the stomach. A right internal jugular central venous catheter has its tip in the right atrium. There are changes of coronary artery bypass grafting. Mild atelectasis has developed along the right minor fissure. The inspiration is small. There is no pneumothorax or pleural effusion. The heart is mildly enlarged. IMPRESSION: 1. Mild cardiomegaly.
[2016-09-11] MEDS ORDERED: EPHEDRINE PF IN SALINE 50 MG/5 ML DISP.SYRIN. IV ONE (08:27)
[2016-09-11] MEDS ORDERED: BUPIVAC MPF-EPI 0.5%-1:200000 30 ML VIAL. INJ ONE (08:32)
[2016-09-11] MEDS ORDERED: PHENYLEPHRINE in 0.9% NACL PF 1 MG/10 ML DISP.SYRIN. IV ONE (08:34)
[2016-09-11] MEDS: MICONAZOLE NITRATE 2% TOPICAL POWDER 85GM JAR. TP SCH ×2 (09:00→21:14)
[2016-09-11] MEDS ORDERED: AMIODARONE HCL 200 MG TABLET PEG SCH (09:00)
[2016-09-11] MEDS ORDERED: AMLODIPINE BESYLATE 5 MG TABLET PO SCH (09:00)
[2016-09-11] MEDS: CEFEPIME HCL 2 GM in IV NORMAL SALINE 100ML 100 ML IV SCH ×2 (09:00→21:13)
[2016-09-11] MEDS: AMLODIPINE BESYLATE 5 MG TABLET PEG SCH (09:00)
[2016-09-11] MEDS ORDERED: MORPHINE SULFATE 10 MG/ML VIAL. ONE (09:02)
[2016-09-11] MEDS ORDERED: MIDAZOLAM HCL 2 MG/2 ML VIAL. ONE (09:03)
--- NOTE | 2016-09-11 09:17 | PDOC ---
Subjective: Subjective: Out for surgery. Objective: Vital Signs: Vital Signs Date Time Temp Pulse Resp B/P Pulse Ox O2 Delivery O2 Flow Rate FiO2 09/11/16 07:00 70 16 82/46 100 Ventilator 09/11/16 05:00 97.9 97.9 Labs: Laboratory Tests Test 09/10/16 14:45 09/10/16 16:25 09/11/16 05:45 White Blood Count 14.3x10^3/uL 10.6x10^3/uL Red Blood Count 3.19x10^6/uL 2.83x10^6/uL Hemoglobin 9.4g/dL 8.5g/dL Hematocrit 28.6% 25.1% Mean Corpuscular Volume 90fL 89fL Mean Corpuscular Hemoglobin 30pg 30pg Mean Corpuscular Hemoglobin Concent 33g/dL 34g/dL Red Cell Distribution Width 15.9% 16.7% Platelet Count 274x10^3/uL 275x10^3/uL Neutrophils (%) (Auto) 67% 53% Lymphocytes (%) (Auto) 21% 31% Monocytes (%) (Auto) 8% 11% Eosinophils (%) (Auto) 3% 5% Basophils (%) (Auto) 1% 1% Neutrophils # (Auto) 9.6x10^3uL 5.6x10^3uL Lymphocytes # (Auto) 3.0x10^3/uL 3.3x10^3/uL Monocytes # (Auto) 1.2x10^3/uL 1.1x10^3/uL Eosinophils # (Auto) 0.4x10^3/uL 0.5x10^3/uL Basophils # (Auto) 0.1x10^3/uL 0.1x10^3/uL Prothrombin Time 14.2SEC 15.0SEC Prothromb Time International Ratio 1.2 1.3 Nasal Screen MRSA (PCR) Negative Sodium Level 144mmol/L 146mmol/L Potassium Level 3.5mmol/L 3.6mmol/L Chloride Level 111mmol/L 114mmol/L Carbon Dioxide Level 22mmol/L 20mmol/L Anion Gap 11 12 Blood Urea Nitrogen 29mg/dL 31mg/dL Creatinine 2.0mg/dL 2.6mg/dL Estimated GFR (Cockcroft-Gault) 44.3 32.8 BUN/Creatinine Ratio 15 12 Glucose Level 100mg/dL 81mg/dL Lactic Acid Level 1.0mmol/L Calcium Level 9.3mg/dL 9.1mg/dL Magnesium Level 1.2mg/dL 2.2mg/dL Total Bilirubin 0.6mg/dL 0.3mg/dL Aspartate Amino Transf (AST/SGOT) 17U/L 21U/L Alanine Aminotransferase (ALT/SGPT) 17U/L 16U/L Alkaline Phosphatase 93U/L 89U/L Total Protein 7.9g/dL 7.1g/dL Albumin 2.2g/dL 2.0g/dL Albumin/Globulin Ratio 0.4 0.4 O2 Saturation 99% Arterial Blood pH 7.34 Arterial Blood pCO2 at Patient Temp 35mmHg Arterial Blood pO2 at Patient Temp 203mmHg Arterial Blood HCO3 19mmol/L Arterial Blood Base Excess -7mmol/L FiO2 50 PE: no exam A/P: SBO vs ileus PEG in place Resp failure w/ trach, on vent PUD -non-bleeding gastric and duodenal ulcers on EGD 08/29/16 w/ Dr. Shankar -on PPI -- Out for surgery. Will follow. JOANN GIBBS Sep 11, 2016 09:17
[2016-09-11] MEDS ORDERED: METRONIDAZOLE PREMIX 500 MG/100 ML BAG. IV ONE (09:20)
[2016-09-11] MEDS ORDERED: 0.9 % SODIUM CHLORIDE 10 ML DISP.SYRIN. IV PRN (09:30)
--- NOTE | 2016-09-11 09:44 | PDOC ---
BRIEF OPERATIVE NOTE Pre-Op Diagnosis SBO Post-Op Diagnosis same, small bowel stricture Procedure Performed lap converted to open small bowel resection, BEKAH Surgeon Dora Anesthesia Type: General, Local Blood Loss 50 IV Fluid 1100 Specimens Obtained small bowel Findings small bowel stricture x 2 Complications none Additional Remarks [id number] BLU HODGSON MD Sep 11, 2016 09:44
[2016-09-11] MEDS: IPRATRPIUM/ALBUTEROL 0.5/2.5MG 3 ML NEBU. NEB SCH ×4 (09:48→19:58)
[2016-09-11] MEDS ORDERED: LACOSAMIDE 50 MG TABLET PEG SCH (10:00)
[2016-09-11] MEDS ORDERED: LACOSAMIDE 50 MG TABLET PO SCH (10:00)
--- NOTE | 2016-09-11 10:40 | PDOC ---
PULMONARY PROGRESS NOTES Subjective remains on AC mode s/p exp. lap Vitals Vital Signs Date Time Temp Pulse Resp B/P Pulse Ox O2 Delivery O2 Flow Rate FiO2 09/11/16 10:25 97.1 86 16 159/84 99 Ventilator 97.1 Lungs: Other (decrease bs) Cardiovascular: S1 Abdomen: Soft, Other (decrease bs) Extremities: Other (trace edema) Labs Laboratory Tests Test 09/10/16 14:45 09/10/16 16:25 09/11/16 05:45 White Blood Count 14.3x10^3/uL (4.0-11.0) 10.6x10^3/uL (4.0-11.0) Red Blood Count 3.19x10^6/uL (4.30-5.70) 2.83x10^6/uL (4.30-5.70) Hemoglobin 9.4g/dL (13.0-17.5) 8.5g/dL (13.0-17.5) Hematocrit 28.6% (39.0-53.0) 25.1% (39.0-53.0) Mean Corpuscular Volume 90fL (79-100) 89fL (79-100) Mean Corpuscular Hemoglobin 30pg (25-35) 30pg (25-35) Mean Corpuscular Hemoglobin Concent 33g/dL (31-37) 34g/dL (31-37) Red Cell Distribution Width 15.9% (11.5-14.5) 16.7% (11.5-14.5) Platelet Count 274x10^3/uL (140-400) 275x10^3/uL (140-400) Neutrophils (%) (Auto) 67% (31-73) 53% (31-73) Lymphocytes (%) (Auto) 21% (24-48) 31% (24-48) Monocytes (%) (Auto) 8% (0-9) 11% (0-9) Eosinophils (%) (Auto) 3% (0-3) 5% (0-3) Basophils (%) (Auto) 1% (0-3) 1% (0-3) Neutrophils # (Auto) 9.6x10^3uL (1.8-7.7) 5.6x10^3uL (1.8-7.7) Lymphocytes # (Auto) 3.0x10^3/uL (1.0-4.8) 3.3x10^3/uL (1.0-4.8) Monocytes # (Auto) 1.2x10^3/uL (0.0-1.1) 1.1x10^3/uL (0.0-1.1) Eosinophils # (Auto) 0.4x10^3/uL (0.0-0.7) 0.5x10^3/uL (0.0-0.7) Basophils # (Auto) 0.1x10^3/uL (0.0-0.2) 0.1x10^3/uL (0.0-0.2) Prothrombin Time 14.2SEC (11.7-14.0) 15.0SEC (11.7-14.0) Prothromb Time International Ratio 1.2 (0.8-1.1) 1.3 (0.8-1.1) Nasal Screen MRSA (PCR) Negative (Negative) Sodium Level 144mmol/L (136-145) 146mmol/L (136-145) Potassium Level 3.5mmol/L (3.5-5.1) 3.6mmol/L (3.5-5.1) Chloride Level 111mmol/L (98-107) 114mmol/L (98-107) Carbon Dioxide Level 22mmol/L (21-32) 20mmol/L (21-32) Anion Gap 11 (6-14) 12 (6-14) Blood Urea Nitrogen 29mg/dL (8-26) 31mg/dL (8-26) Creatinine 2.0mg/dL (0.7-1.3) 2.6mg/dL (0.7-1.3) Estimated GFR (Cockcroft-Gault) 44.3 32.8 BUN/Creatinine Ratio 15 (6-20) 12 (6-20) Glucose Level 100mg/dL (70-99) 81mg/dL (70-99) Lactic Acid Level 1.0mmol/L (0.4-2.0) Calcium Level 9.3mg/dL (8.5-10.1) 9.1mg/dL (8.5-10.1) Magnesium Level 1.2mg/dL (1.8-2.4) 2.2mg/dL (1.8-2.4) Total Bilirubin 0.6mg/dL (0.2-1.0) 0.3mg/dL (0.2-1.0) Aspartate Amino Transf (AST/SGOT) 17U/L (15-37) 21U/L (15-37) Alanine Aminotransferase (ALT/SGPT) 17U/L (16-63) 16U/L (16-63) Alkaline Phosphatase 93U/L (46-116) 89U/L (46-116) Total Protein 7.9g/dL (6.4-8.2) 7.1g/dL (6.4-8.2) Albumin 2.2g/dL (3.4-5.0) 2.0g/dL (3.4-5.0) Albumin/Globulin Ratio 0.4 (1.0-1.7) 0.4 (1.0-1.7) O2 Saturation 99% (92-99) Arterial Blood pH 7.34 (7.35-7.45) Arterial Blood pCO2 at Patient Temp 35mmHg (35-46) Arterial Blood pO2 at Patient Temp 203mmHg (75-108) Arterial Blood HCO3 19mmol/L (21-28) Arterial Blood Base Excess -7mmol/L (-3-3) FiO2 50 Laboratory Tests Test 09/10/16 14:45 09/10/16 16:25 09/11/16 05:45 White Blood Count 14.3x10^3/uL (4.0-11.0) 10.6x10^3/uL (4.0-11.0) Red Blood Count 3.19x10^6/uL (4.30-5.70) 2.83x10^6/uL (4.30-5.70) Hemoglobin 9.4g/dL (13.0-17.5) 8.5g/dL (13.0-17.5) Hematocrit 28.6% (39.0-53.0) 25.1% (39.0-53.0) Mean Corpuscular Volume 90fL (79-100) 89fL (79-100) Mean Corpuscular Hemoglobin 30pg (25-35) 30pg (25-35) Mean Corpuscular Hemoglobin Concent 33g/dL (31-37) 34g/dL (31-37) Red Cell Distribution Width 15.9% (11.5-14.5) 16.7% (11.5-14.5) Platelet Count 274x10^3/uL (140-400) 275x10^3/uL (140-400) Neutrophils (%) (Auto) 67% (31-73) 53% (31-73) Lymphocytes (%) (Auto) 21% (24-48) 31% (24-48) Monocytes (%) (Auto) 8% (0-9) 11% (0-9) Eosinophils (%) (Auto) 3% (0-3) 5% (0-3) Basophils (%) (Auto) 1% (0-3) 1% (0-3) Neutrophils # (Auto) 9.6x10^3uL (1.8-7.7) 5.6x10^3uL (1.8-7.7) Lymphocytes # (Auto) 3.0x10^3/uL (1.0-4.8) 3.3x10^3/uL (1.0-4.8) Monocytes # (Auto) 1.2x10^3/uL (0.0-1.1) 1.1x10^3/uL (0.0-1.1) Eosinophils # (Auto) 0.4x10^3/uL (0.0-0.7) 0.5x10^3/uL (0.0-0.7) Basophils # (Auto) 0.1x10^3/uL (0.0-0.2) 0.1x10^3/uL (0.0-0.2) Prothrombin Time 14.2SEC (11.7-14.0) 15.0SEC (11.7-14.0) Prothromb Time International Ratio 1.2 (0.8-1.1) 1.3 (0.8-1.1) Nasal Screen MRSA (PCR) Negative (Negative) Sodium Level 144mmol/L (136-145) 146mmol/L (136-145) Potassium Level 3.5mmol/L (3.5-5.1) 3.6mmol/L (3.5-5.1) Chloride Level 111mmol/L (98-107) 114mmol/L (98-107) Carbon Dioxide Level 22mmol/L (21-32) 20mmol/L (21-32) Anion Gap 11 (6-14) 12 (6-14) Blood Urea Nitrogen 29mg/dL (8-26) 31mg/dL (8-26) Creatinine 2.0mg/dL (0.7-1.3) 2.6mg/dL (0.7-1.3) Estimated GFR (Cockcroft-Gault) 44.3 32.8 BUN/Creatinine Ratio 15 (6-20) 12 (6-20) Glucose Level 100mg/dL (70-99) 81mg/dL (70-99) Lactic Acid Level 1.0mmol/L (0.4-2.0) Calcium Level 9.3mg/dL (8.5-10.1) 9.1mg/dL (8.5-10.1) Magnesium Level 1.2mg/dL (1.8-2.4) 2.2mg/dL (1.8-2.4) Total Bilirubin 0.6mg/dL (0.2-1.0) 0.3mg/dL (0.2-1.0) Aspartate Amino Transf (AST/SGOT) 17U/L (15-37) 21U/L (15-37) Alanine Aminotransferase (ALT/SGPT) 17U/L (16-63) 16U/L (16-63) Alkaline Phosphatase 93U/L (46-116) 89U/L (46-116) Total Protein 7.9g/dL (6.4-8.2) 7.1g/dL (6.4-8.2) Albumin 2.2g/dL (3.4-5.0) 2.0g/dL (3.4-5.0) Albumin/Globulin Ratio 0.4 (1.0-1.7) 0.4 (1.0-1.7) O2 Saturation 99% (92-99) Arterial Blood pH 7.34 (7.35-7.45) Arterial Blood pCO2 at Patient Temp 35mmHg (35-46) Arterial Blood pO2 at Patient Temp 203mmHg (75-108) Arterial Blood HCO3 19mmol/L (21-28) Arterial Blood Base Excess -7mmol/L (-3-3) FiO2 50 Medications Active Scripts Medications Dose Route/Sig Days Date Category Amiodarone Hcl 200 Mg Tablet 1 Tab PEG DAILY 09/11/16 Reported Docusate Sodium 100 Mg Capsule 100 Mg PEG BID 09/11/16 Reported Miconazole Nitrate 130 Gm Aero.powd 130 Gm TP PRN PRN 09/11/16 Reported Reglan (Metoclopramide Hcl) 10 Mg Tablet 10 Mg IV Q8HRS 09/11/16 Reported Amlodipine Besylate 10 Mg Tablet 10 Mg PEG DAILY 09/11/16 Reported Acetaminophen 160 Mg/5 Ml Solution 650 Mg PEG PRN Q6HRS PRN 09/11/16 Reported Ondansetron Odt (Ondansetron) 4 Mg Tab.rapdis 4 Mg PEG Q8HRS PRN 09/11/16 Reported Ondansetron Hcl 4 Mg/2 Ml Syr (Ondansetron Hcl/Pf) 4 Mg/2 Ml Disp.syrin 4 Mg IV PRN Q8HRS PRN 09/11/16 Reported Duoneb 0.5-3(2.5) Mg/3 Ml (Albuterol/Ipratropium) 3 Ml Ampul.neb 3 Ml NEB BID 09/11/16 Reported Pantoprazole Sodium 40 Mg Tablet.dr 40 Mg IV DAILY 09/11/16 Reported Cefepime Hcl 2 Gm Vial 2 Gm IV Q12HR 09/11/16 Reported Erythrocin Lactobionate (Erythromycin Lactobionate) 500 Mg Vial 125 Mg IV Q6HRS 09/11/16 Reported Eraxis (Water Diluent) (Anidulafungin) 100 Mg Vial 100 Mg IV DAILY 09/11/16 Reported Lorazepam 0.5 Mg Tablet 0.5 Mg IV PRN Q6HRS PRN 09/11/16 Reported FENTANYL 25mcg/hr (Fentanyl) 1 Each Patch.td72 25 Mcg IV PRN Q6HRS PRN 09/11/16 Reported Hydralazine Hcl 10 Mg Tablet 10 Mg IV Q6HRS 09/11/16 Reported Vimpat (Lacosamide) 1 Each Tab.ds.pk 100 Mg PO DAILY 08/29/16 Reported Impression . 1. [id number] respiratory failure, suspect secondary to suspected sepsis/small-bowel obstruction. AC mode 2. 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 3. History of fungemia and sepsis. 4. Pneumonia. 5. History of congestive heart failure. 6. Recent small-bowel obstruction with early sepsis. 7. History of cardiac arrhythmias on amiodarone. 8. History of left upper extremity deep venous thrombosis. 9. Anemia. Plan . 1. AC mode 2. f/u ABGs and make necessary adjustment. 3. Mild sedation and narcotics. 4. Follow Surgical recommendations 5. Infectious disease recommendations 6. Follow cardiology recommendations. 7. May try off vent in 24 hrs 8. Follow renal function. 9. we will do follow up on upper extremity Dopplers. 10. SCDs for Deep venous thrombosis prophylaxis. 11. Enteral nutrition on hold due to small-bowel obstruction. 12. Discussed with RN and RT. REBEL LICONA MD Sep 11, 2016 10:40
[2016-09-11] MEDS ORDERED: ENOXAPARIN 40 MG/0.4 ML DISP.SYRIN. SQ SCH (11:00)
[2016-09-11] MEDS: LACOSAMIDE 100 MG in IV NORMAL SALINE 50ML 50 ML IV SCH (11:23)
--- NOTE | 2016-09-11 11:42 | PDOC ---
SHY LAMA GRAVEL WHEELER 09/11/16 1142: CARDIO Progress Notes Date and Time Date of Service 09/11/2016 Time of Evaluation 1020 Subjective Subjective: Other (sedated) Vitals Vitals Vital Signs Date Time Temp Pulse Resp B/P Pulse Ox O2 Delivery O2 Flow Rate FiO2 09/11/16 10:25 97.1 86 16 159/84 99 Ventilator 97.1 Weight Weight [ ] Input and Output Intake and Output Intake and Output 09/11/16 07:00 Intake Total 2050 ml Output Total 1055 ml Balance 995 ml Intake Oral 0 ml IV Total 2050 ml Tube Feeding 0 ml Output Urine Total 555 ml Gastric Drainage Total 500 ml Laboratory Labs Laboratory Tests Test 09/10/16 14:45 09/10/16 16:25 09/11/16 05:45 White Blood Count 14.3x10^3/uL (4.0-11.0) 10.6x10^3/uL (4.0-11.0) Red Blood Count 3.19x10^6/uL (4.30-5.70) 2.83x10^6/uL (4.30-5.70) Hemoglobin 9.4g/dL (13.0-17.5) 8.5g/dL (13.0-17.5) Hematocrit 28.6% (39.0-53.0) 25.1% (39.0-53.0) Mean Corpuscular Volume 90fL (79-100) 89fL (79-100) Mean Corpuscular Hemoglobin 30pg (25-35) 30pg (25-35) Mean Corpuscular Hemoglobin Concent 33g/dL (31-37) 34g/dL (31-37) Red Cell Distribution Width 15.9% (11.5-14.5) 16.7% (11.5-14.5) Platelet Count 274x10^3/uL (140-400) 275x10^3/uL (140-400) Neutrophils (%) (Auto) 67% (31-73) 53% (31-73) Lymphocytes (%) (Auto) 21% (24-48) 31% (24-48) Monocytes (%) (Auto) 8% (0-9) 11% (0-9) Eosinophils (%) (Auto) 3% (0-3) 5% (0-3) Basophils (%) (Auto) 1% (0-3) 1% (0-3) Neutrophils # (Auto) 9.6x10^3uL (1.8-7.7) 5.6x10^3uL (1.8-7.7) Lymphocytes # (Auto) 3.0x10^3/uL (1.0-4.8) 3.3x10^3/uL (1.0-4.8) Monocytes # (Auto) 1.2x10^3/uL (0.0-1.1) 1.1x10^3/uL (0.0-1.1) Eosinophils # (Auto) 0.4x10^3/uL (0.0-0.7) 0.5x10^3/uL (0.0-0.7) Basophils # (Auto) 0.1x10^3/uL (0.0-0.2) 0.1x10^3/uL (0.0-0.2) Prothrombin Time 14.2SEC (11.7-14.0) 15.0SEC (11.7-14.0) Prothromb Time International Ratio 1.2 (0.8-1.1) 1.3 (0.8-1.1) Nasal Screen MRSA (PCR) Negative (Negative) Sodium Level 144mmol/L (136-145) 146mmol/L (136-145) Potassium Level 3.5mmol/L (3.5-5.1) 3.6mmol/L (3.5-5.1) Chloride Level 111mmol/L (98-107) 114mmol/L (98-107) Carbon Dioxide Level 22mmol/L (21-32) 20mmol/L (21-32) Anion Gap 11 (6-14) 12 (6-14) Blood Urea Nitrogen 29mg/dL (8-26) 31mg/dL (8-26) Creatinine 2.0mg/dL (0.7-1.3) 2.6mg/dL (0.7-1.3) Estimated GFR (Cockcroft-Gault) 44.3 32.8 BUN/Creatinine Ratio 15 (6-20) 12 (6-20) Glucose Level 100mg/dL (70-99) 81mg/dL (70-99) Lactic Acid Level 1.0mmol/L (0.4-2.0) Calcium Level 9.3mg/dL (8.5-10.1) 9.1mg/dL (8.5-10.1) Magnesium Level 1.2mg/dL (1.8-2.4) 2.2mg/dL (1.8-2.4) Total Bilirubin 0.6mg/dL (0.2-1.0) 0.3mg/dL (0.2-1.0) Aspartate Amino Transf (AST/SGOT) 17U/L (15-37) 21U/L (15-37) Alanine Aminotransferase (ALT/SGPT) 17U/L (16-63) 16U/L (16-63) Alkaline Phosphatase 93U/L (46-116) 89U/L (46-116) Total Protein 7.9g/dL (6.4-8.2) 7.1g/dL (6.4-8.2) Albumin 2.2g/dL (3.4-5.0) 2.0g/dL (3.4-5.0) Albumin/Globulin Ratio 0.4 (1.0-1.7) 0.4 (1.0-1.7) O2 Saturation 99% (92-99) Arterial Blood pH 7.34 (7.35-7.45) Arterial Blood pCO2 at Patient Temp 35mmHg (35-46) Arterial Blood pO2 at Patient Temp 203mmHg (75-108) Arterial Blood HCO3 19mmol/L (21-28) Arterial Blood Base Excess -7mmol/L (-3-3) FiO2 50 Physical Exam HEENT: Neck Supple W Full Motion Chest: Symmetric LUNGS: Other (basilar crackles; trach with vent) Heart: S1S2, RRR Abdomen: Soft N/T, Other (abdokinal surgical incision with dressing intact) Extremities: No Calf Tenderness, Other (1+ bilateral LE pitting edema) Neurology: other (sedated) Assessment Assessment 1. Hypertension: low BP post surgery otherwise controlled 2. Small bowl obstruction: S/P bowel resection 3. Sepsis 4. Chronic respiratory failure s/p tracheostomy 5. Chronic heart failure: clinically compensated 6. h/o PAFIB?: TTE with preserved EF with normal LV systolic function. Remains SR and no signs of AFIB. 7. Possible past CAD based on TTE with abnormal septal wall motion is noted suggestive of prior infarct/conduction abnormality 7. h/o CVA 8. Diabetes Recommendations 1. Continue with amiodarone for now (I would suspect AFIB likely from post aneurysm repair) Continue with metoprolol IV (switch to po once allowed) per BP tolerance 2. Awaiting cardiac records from [place] 3. Tolerated abdominal surgery and recent thoracic aneurysm repair indicating good cardiac tolerance 4. ASA 81 mg to resume once cleared by general surgery 5. Supportive care, no further recommendation, pls call if any questions. 6. Hydralazine IV PRN. Resume amlodipine once po allowed. ULICES RIVERA MD 09/12/16 0946: CARDIO Progress Notes Assessment Assessment Patient seen and examined 09/11/16. Agree with CADD TECHNICIAN's assessment and plan. Maintaining sinus rhythm. Continue current medications including amiodarone. SHY LAMA APRN Sep 11, 2016 11:42 ULICES RIVERA MD Sep 12, 2016 09:46
--- NOTE | 2016-09-11 11:52 | PDOC2 ---
CONSULT Date of Consult Date of Consult DATE: 09/11/16 TIME: 11:45 Reason for Consult Reason for Consult: S. 41 yrs AA male, had Rupture of Aortic Aneurysm, and during surgery developed stroke, per his , in May 2016. Since then he has been in hospitals and rehab. Has tracheostomy and , multiple systemic issues. Recently, develoed Fungemia at [facility]. Transfered here to ICU for management. No new eye problems or complaints. O. EOM Full and normal Ext Low tear meniscus OU, no discharge OU Conj mild chemosis 1/2 +, no injection, no discharge OU Cornea Clear and compact OU AC Deep and quiet OU Pupil 2 mm round reacting, equal, no APD OU Lens clear OU Fundus Good red reflex, no gross pathology seen. No sings of fungal endophthalmitis OU A. Fungemia / Dry eyes P. Explained to pt and about risks of fungal endophthalmitis Lubricant drops F/U in my office when discharged from here Thanking you, Dom Villagomez MD Past Medical History Cardiovascular: CHF (diastolic EF 50-55% ), HTN, Hyperlipidemia, Other ( thoracic aortic aneurysm dissection with repair 04/2016) Pulmonary: Pneumonia, Other (chronic respiratory failure with trach ) CENTRAL NERVOUS SYSTEM: CVA (initial 11/2015 miold R sided hemiparesis with Large acute L CVA post thoracic dissection repair with right side hemiparesis , dysphagia, encephalopathy ), Seizure, Other (encephalopathy post CVA with non responsiveness) GI: GI bleed (suspected recent ), Other (dysphagia; partial SBO; hematoma R colon ) Heme/Onc: Anemia NOS (chronic with ESRD/sepsis ), Other (LUE DVT-Heparin stopped due to question GIB; h/o splenic infarct) Hepatobiliary: Other (pancreatic cyst) Psych: Other (encephalopathy ) Infectious disease: Other (PSA sepsis due to central line blood stream infection; isamar parapsilosis sepsis) Renal/: Chronic renal failure (ESRD with HD 3time weekly ) Endocrine: Diabetes (Type II ) Past Surgical History Past Surgical History: Other (PEG placement; tracheostomy; dissecting thoracic aneurysm repair 04/23/2016 ) Family History Family History: Diabetes, Hypertension Social History Quit ALCOHOL: none Drugs: None Lives: [facility] Current Problem List Problem List Problems Medical Problems: (1) Small bowel obstruction Status: Acute Current Medications Current Medications Current Medications Propofol (Diprivan) 100 ml @ As Directed STK-MED ONCE IV ; Start 09/10/16 at 14: 46; Stop 09/10/16 at 14:47; Status DC Pantoprazole Sodium (Protonix Vial) 40 mg [id number] IVP Last administered on 06:12; Start 09/10/16 at 18:00 Metoprolol Tartrate (Lopressor) 5 mg Q6HRS IVP Last administered on 09/11/16 06 :20; Start 09/10/16 at 18:00 Hydralazine HCl (Apresoline) 10 mg PRN Q4HRS PRN IVP ELEVATED BP, SEE COMMENTS ; Start 09/10/16 at 16:15 Sodium Bicarbonate 50 meq 50 meq 1X ONCE IV Last administered on 09/10/16 18: 25; Start 09/10/16 at 18:00; Stop 09/10/16 at 18:01; Status DC Potassium Chloride/Sodium Chloride 1,000 ml @ 150 mls/hr Q6H40M IV Last administered on 09/11/16 06:07; Start 09/10/16 at 20:00; Stop 09/11/16 at 08:03; Status DC Magnesium Sulfate/ Dextrose 100 ml @ 25 mls/hr 1X ONCE IV Last administered on 09/10/16 20:31; Start 09/10/16 at 20:00; Stop 09/10/16 at 23:59; Status DC Micafungin Sodium 100 mg/Dextrose 100 ml @ 100 mls/hr Q24H IV Last administered on 09/10/16 20:57; Start 09/10/16 at 20:00 Propofol (Diprivan) 100 ml @ 0 mls/hr CONT PRN IV SEE I/O RECORD Last administered on 09/11/16 06:08; Start 09/10/16 at 20:00 Hydralazine HCl (Apresoline) 10 mg Q6HRS IVP Last administered on 09/11/16 06: 33; Start 09/11/16 at 00:00 Fentanyl Citrate (Fentanyl 2ml Vial) 25 mcg PRN Q6HRS PRN IV SEVERE PAIN; Start 09/10/16 at 20:45 Lorazepam 0.5 mg 0.5 mg PRN Q6HRS PRN IV ANXIETY / AGITATION; Start 09/10/16 at 20:45 Erythromycin Lactobionate/ Sodium Chloride (Erythrocin/Iv Sodium Chloride 0.9% 100ml) 100 ml @ 100 mls/hr Q6HRS IV Last administered on 09/11/16 06:10; Start 09/11/16 at 00:00 Ondansetron HCl (Zofran) 4 mg PRN Q8HRS PRN IV NAUSEA/VOMITING; Start 09/10/16 at 20:45 Acetaminophen (Tylenol) 650 mg PRN Q6HRS PRN PEG MILD PAIN / TEMP; Start at 20:45 Amlodipine Besylate (Norvasc) 5 mg DAILY PO ; Start 09/11/16 at 09:00; Stop at 09:00; Status DC Metoclopramide HCl (Reglan) 10 mg PRN Q8HRS PRN IV NAUSEA/VOMITING; Start at 20:45; Stop 09/11/16 at 06:00; Status DC Miconazole Nitrate (Monistat-Derm) 1 rk BID TP ; Start 09/10/16 at 21:00; Stop 09/10/16 at 21:24; Status DC Sodium Chloride (Normal Saline Flush 3ml) 3 ml QSHIFT PRN IV AFTER MEDS AND BLOOD DRAWS; Start 09/10/16 at 20:45 Lacosamide (Vimpat) 100 mg DAILY10 PO ; Start 09/11/16 at 10:00; Stop 09/11/16 at 10:00; Status DC Amlodipine Besylate (Norvasc) 5 mg DAILY PEG ; Start 09/11/16 at 09:00 Lacosamide (Vimpat) 100 mg DAILY10 PEG ; Start 09/11/16 at 10:00; Stop 09/11/16 at 10:00; Status DC Albuterol/ Ipratropium (Duoneb) 3 ml RTQID NEB Last administered on 09/11/16 09 :48; Start 09/11/16 at 08:00 Amiodarone HCl 200 mg 200 mg DAILY PEG ; Start 09/11/16 at 09:00 Cefepime HCl/ Sodium Chloride (Maxipime/Iv Sodium Chloride 0.9% 100ml) 100 ml @ 200 mls/hr Q12HR IV Last administered on 09/10/16 22:43; Start 09/10/16 at 22: 00 Alteplase, Recombinant (Cathflo) 2 mg 1X ONCE INT CAT Last administered on 09/10 21:48; Start 09/10/16 at 22:00; Stop 09/10/16 at 22:01; Status DC Miconazole Nitrate 1 rk 1 rk BID TP ; Start 09/11/16 at 09:00 Cefazolin Sodium/ Dextrose 50 ml @ 100 mls/hr PREOP PRN PRN IV PREOP; Start at 07:00; Stop 09/12/16 at 06:59 Sodium Chloride 1,000 ml @ 1,000 mls/hr 1X ONCE IV Last administered on 02:22; Start 09/11/16 at 02:30; Stop 09/11/16 at 03:29; Status DC Sodium Chloride (Iv Sodium Chloride 0.9% 500ml Bag) 500 ml @ 500 mls/hr 1X ONCE IV Last administered on 09/11/16 01:00; Start 09/11/16 at 01:00; Stop at 02:21; Status DC Metoclopramide HCl (Reglan) 10 mg Q8HRS IV Last administered on 09/11/16 06:11 ; Start 09/11/16 at 06:00 Dexamethasone Sodium Phosphate (Decadron) 20 mg STK-MED ONCE .ROUTE ; Start 09/11 at 07:36; Stop 09/11/16 at 07:37; Status DC Ondansetron HCl 4 mg 4 mg STK-MED ONCE .ROUTE ; Start 09/11/16 at 07:36; Stop 09/11/16 at 07:37; Status DC Propofol (Diprivan) 20 ml @ As Directed STK-MED ONCE IV ; Start 09/11/16 at 07:36 ; Stop 09/11/16 at 07:37; Status DC Fentanyl Citrate (Fentanyl 2ml Vial) 100 mcg STK-MED ONCE .ROUTE ; Start at 07:37; Stop 09/11/16 at 07:38; Status DC Rocuronium [place] (Zemuron) 50 mg STK-MED ONCE .ROUTE ; Start 09/11/16 at 07:37 ; Stop 09/11/16 at 07:38; Status DC Desflurane 60 ml 60 ml STK-MED ONCE IH ; Start 09/11/16 at 07:37; Stop 09/11/16 at 07:38; Status DC Cefazolin Sodium/ Dextrose 50 ml @ 100 mls/hr 1X PREOP IV Last administered on 09/11/16 08:48; Start 09/11/16 at 08:00 Lacosamide/Sodium Chloride (Vimpat/Iv Sodium Chloride 0.9% 50ml) 60 ml @ 120 mls/hr DAILY10 IV Last administered on 09/11/16 11:23; Start 09/11/16 at 10:00 Propofol (Diprivan) 1,000 mg STK-MED ONCE IV ; Start 09/10/16 at 14:46; Stop 09/11 at 08:09; Status DC Ephedrine Sulfate 50 mg STK-MED ONCE IV ; Start 09/11/16 at 08:27; Stop 09/11/16 at 08:28; Status DC Phenylephrine HCl 1 mg STK-MED ONCE IV ; Start 09/11/16 at 08:34; Stop 09/11/16 at 08:35; Status DC Bupivacaine HCl/ Epinephrine Bitart (Sensorcain-Mpf Epi 0.5%-1:[id number]) 30 ml STK -MED ONCE INJ Last administered on 09/11/16 08:32; Start 09/11/16 at 08:32; Stop 09/11/16 at 08:48; Status DC Morphine Sulfate 10 mg STK-MED ONCE .ROUTE ; Start 09/11/16 at 09:02; Stop at 09:03; Status DC Midazolam HCl (Versed) 2 mg STK-MED ONCE .ROUTE ; Start 09/11/16 at 09:03; Stop 09/11/16 at 09:04; Status DC Enoxaparin Sodium (Lovenox 40mg Syringe) 40 mg Q24H SQ ; Start 09/11/16 at 11:00 Sodium Chloride (Normal Saline Flush) 3 ml QSHIFT PRN IV AFTER MEDS AND BLOOD DRAWS; Start 09/11/16 at 09:30 Active Scripts Active Reported Amiodarone Hcl 200 Mg Tablet 1 Tab PEG DAILY Docusate Sodium 100 Mg Capsule 100 Mg PEG BID Miconazole Nitrate 130 Gm Aero.powd 130 Gm TP PRN PRN Reglan (Metoclopramide Hcl) 10 Mg Tablet 10 Mg IV Q8HRS Amlodipine Besylate 10 Mg Tablet 10 Mg PEG DAILY Acetaminophen 160 Mg/5 Ml Solution 650 Mg PEG PRN Q6HRS PRN Ondansetron Odt (Ondansetron) 4 Mg Tab.rapdis 4 Mg PEG Q8HRS PRN Ondansetron Hcl 4 Mg/2 Ml Syr (Ondansetron Hcl/Pf) 4 Mg/2 Ml Disp.syrin 4 Mg IV PRN Q8HRS PRN Duoneb 0.5-3(2.5) Mg/3 Ml (Albuterol/Ipratropium) 3 Ml Ampul.neb 3 Ml NEB BID Pantoprazole Sodium 40 Mg Tablet.dr 40 Mg IV DAILY Cefepime Hcl 2 Gm Vial 2 Gm IV Q12HR Erythrocin Lactobionate (Erythromycin Lactobionate) 500 Mg Vial 125 Mg IV Q6HRS Eraxis (Water Diluent) (Anidulafungin) 100 Mg Vial 100 Mg IV DAILY Lorazepam 0.5 Mg Tablet 0.5 Mg IV PRN Q6HRS PRN FENTANYL 25mcg/hr (Fentanyl) 1 Each Patch.td72 25 Mcg IV PRN Q6HRS PRN Hydralazine Hcl 10 Mg Tablet 10 Mg IV Q6HRS Vimpat (Lacosamide) 1 Each Tab.ds.pk 100 Mg PO DAILY Allergies Allergies: Coded Allergies: aspirin (Verified Allergy, Intermediate, 09/07/16) Vitals VITALS Vital Signs Date Time Temp Pulse Resp B/P Pulse Ox O2 Delivery O2 Flow Rate FiO2 09/11/16 10:25 97.1 86 16 159/84 99 Ventilator 97.1 Labs Labs Laboratory Tests Test 09/10/16 14:45 09/10/16 16:25 09/11/16 05:45 White Blood Count 14.3x10^3/uL (4.0-11.0) 10.6x10^3/uL (4.0-11.0) Red Blood Count 3.19x10^6/uL (4.30-5.70) 2.83x10^6/uL (4.30-5.70) Hemoglobin 9.4g/dL (13.0-17.5) 8.5g/dL (13.0-17.5) Hematocrit 28.6% (39.0-53.0) 25.1% (39.0-53.0) Mean Corpuscular Volume 90fL (79-100) 89fL (79-100) Mean Corpuscular Hemoglobin 30pg (25-35) 30pg (25-35) Mean Corpuscular Hemoglobin Concent 33g/dL (31-37) 34g/dL (31-37) Red Cell Distribution Width 15.9% (11.5-14.5) 16.7% (11.5-14.5) Platelet Count 274x10^3/uL (140-400) 275x10^3/uL (140-400) Neutrophils (%) (Auto) 67% (31-73) 53% (31-73) Lymphocytes (%) (Auto) 21% (24-48) 31% (24-48) Monocytes (%) (Auto) 8% (0-9) 11% (0-9) Eosinophils (%) (Auto) 3% (0-3) 5% (0-3) Basophils (%) (Auto) 1% (0-3) 1% (0-3) Neutrophils # (Auto) 9.6x10^3uL (1.8-7.7) 5.6x10^3uL (1.8-7.7) Lymphocytes # (Auto) 3.0x10^3/uL (1.0-4.8) 3.3x10^3/uL (1.0-4.8) Monocytes # (Auto) 1.2x10^3/uL (0.0-1.1) 1.1x10^3/uL (0.0-1.1) Eosinophils # (Auto) 0.4x10^3/uL (0.0-0.7) 0.5x10^3/uL (0.0-0.7) Basophils # (Auto) 0.1x10^3/uL (0.0-0.2) 0.1x10^3/uL (0.0-0.2) Prothrombin Time 14.2SEC (11.7-14.0) 15.0SEC (11.7-14.0) Prothromb Time International Ratio 1.2 (0.8-1.1) 1.3 (0.8-1.1) Nasal Screen MRSA (PCR) Negative (Negative) Sodium Level 144mmol/L (136-145) 146mmol/L (136-145) Potassium Level 3.5mmol/L (3.5-5.1) 3.6mmol/L (3.5-5.1) Chloride Level 111mmol/L (98-107) 114mmol/L (98-107) Carbon Dioxide Level 22mmol/L (21-32) 20mmol/L (21-32) Anion Gap 11 (6-14) 12 (6-14) Blood Urea Nitrogen 29mg/dL (8-26) 31mg/dL (8-26) Creatinine 2.0mg/dL (0.7-1.3) 2.6mg/dL (0.7-1.3) Estimated GFR (Cockcroft-Gault) 44.3 32.8 BUN/Creatinine Ratio 15 (6-20) 12 (6-20) Glucose Level 100mg/dL (70-99) 81mg/dL (70-99) Lactic Acid Level 1.0mmol/L (0.4-2.0) Calcium Level 9.3mg/dL (8.5-10.1) 9.1mg/dL (8.5-10.1) Magnesium Level 1.2mg/dL (1.8-2.4) 2.2mg/dL (1.8-2.4) Total Bilirubin 0.6mg/dL (0.2-1.0) 0.3mg/dL (0.2-1.0) Aspartate Amino Transf (AST/SGOT) 17U/L (15-37) 21U/L (15-37) Alanine Aminotransferase (ALT/SGPT) 17U/L (16-63) 16U/L (16-63) Alkaline Phosphatase 93U/L (46-116) 89U/L (46-116) Total Protein 7.9g/dL (6.4-8.2) 7.1g/dL (6.4-8.2) Albumin 2.2g/dL (3.4-5.0) 2.0g/dL (3.4-5.0) Albumin/Globulin Ratio 0.4 (1.0-1.7) 0.4 (1.0-1.7) O2 Saturation 99% (92-99) Arterial Blood pH 7.34 (7.35-7.45) Arterial Blood pCO2 at Patient Temp 35mmHg (35-46) Arterial Blood pO2 at Patient Temp 203mmHg (75-108) Arterial Blood HCO3 19mmol/L (21-28) Arterial Blood Base Excess -7mmol/L (-3-3) FiO2 50 Laboratory Tests Test 09/10/16 14:45 09/10/16 16:25 09/11/16 05:45 White Blood Count 14.3x10^3/uL (4.0-11.0) 10.6x10^3/uL (4.0-11.0) Red Blood Count 3.19x10^6/uL (4.30-5.70) 2.83x10^6/uL (4.30-5.70) Hemoglobin 9.4g/dL (13.0-17.5) 8.5g/dL (13.0-17.5) Hematocrit 28.6% (39.0-53.0) 25.1% (39.0-53.0) Mean Corpuscular Volume 90fL (79-100) 89fL (79-100) Mean Corpuscular Hemoglobin 30pg (25-35) 30pg (25-35) Mean Corpuscular Hemoglobin Concent 33g/dL (31-37) 34g/dL (31-37) Red Cell Distribution Width 15.9% (11.5-14.5) 16.7% (11.5-14.5) Platelet Count 274x10^3/uL (140-400) 275x10^3/uL (140-400) Neutrophils (%) (Auto) 67% (31-73) 53% (31-73) Lymphocytes (%) (Auto) 21% (24-48) 31% (24-48) Monocytes (%) (Auto) 8% (0-9) 11% (0-9) Eosinophils (%) (Auto) 3% (0-3) 5% (0-3) Basophils (%) (Auto) 1% (0-3) 1% (0-3) Neutrophils # (Auto) 9.6x10^3uL (1.8-7.7) 5.6x10^3uL (1.8-7.7) Lymphocytes # (Auto) 3.0x10^3/uL (1.0-4.8) 3.3x10^3/uL (1.0-4.8) Monocytes # (Auto) 1.2x10^3/uL (0.0-1.1) 1.1x10^3/uL (0.0-1.1) Eosinophils # (Auto) 0.4x10^3/uL (0.0-0.7) 0.5x10^3/uL (0.0-0.7) Basophils # (Auto) 0.1x10^3/uL (0.0-0.2) 0.1x10^3/uL (0.0-0.2) Prothrombin Time 14.2SEC (11.7-14.0) 15.0SEC (11.7-14.0) Prothromb Time International Ratio 1.2 (0.8-1.1) 1.3 (0.8-1.1) Nasal Screen MRSA (PCR) Negative (Negative) Sodium Level 144mmol/L (136-145) 146mmol/L (136-145) Potassium Level 3.5mmol/L (3.5-5.1) 3.6mmol/L (3.5-5.1) Chloride Level 111mmol/L (98-107) 114mmol/L (98-107) Carbon Dioxide Level 22mmol/L (21-32) 20mmol/L (21-32) Anion Gap 11 (6-14) 12 (6-14) Blood Urea Nitrogen 29mg/dL (8-26) 31mg/dL (8-26) Creatinine 2.0mg/dL (0.7-1.3) 2.6mg/dL (0.7-1.3) Estimated GFR (Cockcroft-Gault) 44.3 32.8 BUN/Creatinine Ratio 15 (6-20) 12 (6-20) Glucose Level 100mg/dL (70-99) 81mg/dL (70-99) Lactic Acid Level 1.0mmol/L (0.4-2.0) Calcium Level 9.3mg/dL (8.5-10.1) 9.1mg/dL (8.5-10.1) Magnesium Level 1.2mg/dL (1.8-2.4) 2.2mg/dL (1.8-2.4) Total Bilirubin 0.6mg/dL (0.2-1.0) 0.3mg/dL (0.2-1.0) Aspartate Amino Transf (AST/SGOT) 17U/L (15-37) 21U/L (15-37) Alanine Aminotransferase (ALT/SGPT) 17U/L (16-63) 16U/L (16-63) Alkaline Phosphatase 93U/L (46-116) 89U/L (46-116) Total Protein 7.9g/dL (6.4-8.2) 7.1g/dL (6.4-8.2) Albumin 2.2g/dL (3.4-5.0) 2.0g/dL (3.4-5.0) Albumin/Globulin Ratio 0.4 (1.0-1.7) 0.4 (1.0-1.7) O2 Saturation 99% (92-99) Arterial Blood pH 7.34 (7.35-7.45) Arterial Blood pCO2 at Patient Temp 35mmHg (35-46) Arterial Blood pO2 at Patient Temp 203mmHg (75-108) Arterial Blood HCO3 19mmol/L (21-28) Arterial Blood Base Excess -7mmol/L (-3-3) FiO2 50 WENDY VILLAGOMEZ MD Sep 11, 2016 11:51
--- NOTE | 2016-09-11 11:53 | PDOC ---
Infectious Disease Note Subjective Subjective pt known to us, transferred from [facility] for bowel obstruction, underwent surgery on vent ROS ROS unable to do Vital Sign Vital Signs Vital Signs Date Time Temp Pulse Resp B/P Pulse Ox O2 Delivery O2 Flow Rate FiO2 09/11/16 10:25 97.1 86 16 159/84 99 Ventilator 97.1 Physical Exam PHYSICAL EXAM GENERAL: on vent, trach HEENT: PERRL, OC/OP NECK: Supple, no JVD, no LN LUNGS: Clear HEART: S1S2, no gallop, no murmur ABD: Soft, NT, no organomegaly, no rebound EXT: No edema, no cyanosis LICENSED MASSAGE THERAPIST: cva, non verbal SKIN: No rash IV: ok Labs Lab Laboratory Tests Test 09/10/16 14:45 09/10/16 16:25 09/11/16 05:45 White Blood Count 14.3x10^3/uL (4.0-11.0) 10.6x10^3/uL (4.0-11.0) Red Blood Count 3.19x10^6/uL (4.30-5.70) 2.83x10^6/uL (4.30-5.70) Hemoglobin 9.4g/dL (13.0-17.5) 8.5g/dL (13.0-17.5) Hematocrit 28.6% (39.0-53.0) 25.1% (39.0-53.0) Mean Corpuscular Volume 90fL (79-100) 89fL (79-100) Mean Corpuscular Hemoglobin 30pg (25-35) 30pg (25-35) Mean Corpuscular Hemoglobin Concent 33g/dL (31-37) 34g/dL (31-37) Red Cell Distribution Width 15.9% (11.5-14.5) 16.7% (11.5-14.5) Platelet Count 274x10^3/uL (140-400) 275x10^3/uL (140-400) Neutrophils (%) (Auto) 67% (31-73) 53% (31-73) Lymphocytes (%) (Auto) 21% (24-48) 31% (24-48) Monocytes (%) (Auto) 8% (0-9) 11% (0-9) Eosinophils (%) (Auto) 3% (0-3) 5% (0-3) Basophils (%) (Auto) 1% (0-3) 1% (0-3) Neutrophils # (Auto) 9.6x10^3uL (1.8-7.7) 5.6x10^3uL (1.8-7.7) Lymphocytes # (Auto) 3.0x10^3/uL (1.0-4.8) 3.3x10^3/uL (1.0-4.8) Monocytes # (Auto) 1.2x10^3/uL (0.0-1.1) 1.1x10^3/uL (0.0-1.1) Eosinophils # (Auto) 0.4x10^3/uL (0.0-0.7) 0.5x10^3/uL (0.0-0.7) Basophils # (Auto) 0.1x10^3/uL (0.0-0.2) 0.1x10^3/uL (0.0-0.2) Prothrombin Time 14.2SEC (11.7-14.0) 15.0SEC (11.7-14.0) Prothromb Time International Ratio 1.2 (0.8-1.1) 1.3 (0.8-1.1) Nasal Screen MRSA (PCR) Negative (Negative) Sodium Level 144mmol/L (136-145) 146mmol/L (136-145) Potassium Level 3.5mmol/L (3.5-5.1) 3.6mmol/L (3.5-5.1) Chloride Level 111mmol/L (98-107) 114mmol/L (98-107) Carbon Dioxide Level 22mmol/L (21-32) 20mmol/L (21-32) Anion Gap 11 (6-14) 12 (6-14) Blood Urea Nitrogen 29mg/dL (8-26) 31mg/dL (8-26) Creatinine 2.0mg/dL (0.7-1.3) 2.6mg/dL (0.7-1.3) Estimated GFR (Cockcroft-Gault) 44.3 32.8 BUN/Creatinine Ratio 15 (6-20) 12 (6-20) Glucose Level 100mg/dL (70-99) 81mg/dL (70-99) Lactic Acid Level 1.0mmol/L (0.4-2.0) Calcium Level 9.3mg/dL (8.5-10.1) 9.1mg/dL (8.5-10.1) Magnesium Level 1.2mg/dL (1.8-2.4) 2.2mg/dL (1.8-2.4) Total Bilirubin 0.6mg/dL (0.2-1.0) 0.3mg/dL (0.2-1.0) Aspartate Amino Transf (AST/SGOT) 17U/L (15-37) 21U/L (15-37) Alanine Aminotransferase (ALT/SGPT) 17U/L (16-63) 16U/L (16-63) Alkaline Phosphatase 93U/L (46-116) 89U/L (46-116) Total Protein 7.9g/dL (6.4-8.2) 7.1g/dL (6.4-8.2) Albumin 2.2g/dL (3.4-5.0) 2.0g/dL (3.4-5.0) Albumin/Globulin Ratio 0.4 (1.0-1.7) 0.4 (1.0-1.7) O2 Saturation 99% (92-99) Arterial Blood pH 7.34 (7.35-7.45) Arterial Blood pCO2 at Patient Temp 35mmHg (35-46) Arterial Blood pO2 at Patient Temp 203mmHg (75-108) Arterial Blood HCO3 19mmol/L (21-28) Arterial Blood Base Excess -7mmol/L (-3-3) FiO2 50 Objective Assessment Bowel obstruction Fungemia PSA bacteremia CVA Persistant veg state Thoracic aneurysm surgery Plan Plan of Care cont cefepime and micafungin d/c cv line, picc ok supportive care d/w EDWARD Miller MD Sep 11, 2016 11:52
--- NOTE | 2016-09-11 15:03 | OP ---
DATE OF SURGERY: 09/11/2016 REFERRING PHYSICIANS: 1. Dr. Kaylie Shankar. 2. Dr. Orin Shankar. 3. Dr. Marshal Robles. 4. Dr. Velazquez. 5. Dr. Harshad Lara at [facility]. 6. Dr. Enrique Berumen. Thank you for the consult. PREOPERATIVE DIAGNOSIS: Small-bowel obstruction. POSTOPERATIVE DIAGNOSES: Small-bowel obstruction, small-bowel stricture. PROCEDURE: Laparoscopic converted to open exploration, lysis of adhesions, and small-bowel resection. SURGEON: Medardo John MD ESTIMATED BLOOD LOSS: 50 mL FLUIDS: 1100 mL. COMPLICATIONS: None. FINDINGS: Two points of stricture concerning for inflammatory bowel disease, possible Crohn's in the ileum with a resultant small-bowel obstruction. INDICATIONS: A 41-year-old male with multiple medical problems who has been at [facility]. He has had difficulties with maintaining tube feeds, and imaging was concerning for possible small-bowel obstruction versus ileus. Subsequently, it was felt the patient will best be served by laparoscopic versus open exploration. The patient's was informed of the risks, benefits, and alternatives to procedure, risks including but not limited to bleeding, infection, damage to surrounding structures, risk of anesthesia, and risk of an open procedure. The patient's appeared to understand, and her insightful questions were answered, and she agrees to proceed. DESCRIPTION OF PROCEDURE: After obtaining informed consent, the patient was taken to the operating room and induced under general endotracheal anesthetic. The patient was prepped and draped in the usual fashion in the anterior abdominal wall. A 0.5% Marcaine with epinephrine was injected into the right midabdomen. Incision was made using 15-blade scalpel. A 5-mm nonbladed trocar was introduced into the abdominal cavity under direct vision of laparoscope. Pneumoperitoneum was established. Additional 5-mm port was placed in the suprapubic area under direct laparoscopic guidance. The abdominal cavity was explored. The proximal small bowel was noted to be fairly distended with distal decompression. Bowel appeared to be viable throughout. Liver was normal in appearance. There was no obvious hernia. Initial manipulation of the bowel with a grasper was very difficult secondary to the way that it distended small bowel. It was felt that the patient will best be served by evisceration of the small bowel for evaluation. A midline incision was made using electrocautery. Subcutaneous tissue was divided using electrocautery. Fascia was divided in the midline. This allowed evisceration of the small bowel. Of note, the colon had been explored previously and was normal in appearance. Small bowel was run from ligament of Treitz to terminal ileum. There was noted to be some adhesions, which were lysed. These were fairly minimal and did not appear to be the main source of the issue. There was noted to be two areas of significant stricture; one shorter one in the lower ileum and another one distal, which was of longer length of approximately 4 cm with a resultant small-bowel obstruction. Given these findings, it was felt that the patient will best be served by a small-bowel resection. Gentle load JOHN stapler was taken across the small bowel distal to the area of concern and proximal to the area of concern. Mesentery was taken using Impact LigaSure. The specimen was passed off field and sent to Pathology for evaluation. Pathology grossly demonstrated that the two areas of stricture were felt to be inflammatory bowel disease, but no obvious cancer or tumor and certainly the concern for possible Crohn's. A hyak-dz-hnec stapled anastomosis was created using gentle load JOHN stapler. This did also allow significant decompression of the proximal small bowel. The end of this was sealed off using a TA 60 stapler. The anastomosis was reinforced using multiple interrupted 3-0 Vicryl stitches. Mesentery defect was closed using 3-0 Chromic. The anastomosis was noted to be patent, and no tension, completely viable without evidence for leakage. The viscera was returned to the abdominal cavity. The abdominal cavity was copiously irrigated with normal saline solution. There was no evidence of bleeding or other pathology at the time of closure. The omentum was placed over the bowel. The fascia was reapproximated in midline using 2 looped 0 PDS stitches in continuous fashion, and a Cara drain was placed in the subcutaneous tissues. Subcutaneous tissues were reapproximated with 3-0 Vicryl. Skin incisions were approximated with 4-0 Monocryl in subcuticular fashion. Sterile dressing was placed over all wounds. The patient tolerated the procedure well and was discharged to Recovery Room and to the ICU in a stable condition. All counts were correct. There were no immediate complications. MEDARDO JOHN MD DR: KETAN/lizette JOB#: [id number] / [id number] MARSHAL Grimaldo MD, HARSHAD BERUMEN, ENRIQUE SHANKAR, KAYLIE SHANKAR, ORIN VELAZQUEZ, JESSICA WILL
[2016-09-11] MEDS ORDERED: TPN PER PHARMACY MC PRN (16:00)
[2016-09-11 16:41] LABS: HCO3 ABG 17 mmol/L (21-28); PCO2 ABG 36 mmHg (35-46); PO2 ABG 130 mmHg (75-108); SAT O2 ABG 98 % (92-99)
[2016-09-11 16:46] LABS: FIO2 ABG 40
[2016-09-11] MEDS ORDERED: POTASSIUM CHLORIDE 30 MEQ in IV 1/2 NORMAL SALINE 1,000 ML IV SCH ×4 (18:00)
[2016-09-11] MEDS ORDERED: SODIUM BICARB ADULT 8.4% 50 MEQ/50 ML DISP.SYRIN. IV ONE (19:30)
[2016-09-11] MEDS: MICAFUNGIN 100 MG in IV DEXTROSE 5% 100 ML IV SCH (19:38)
[2016-09-11] MEDS: FENTANYL PF 100 MCG/2 ML VIAL. IV PRN (21:13)
[2016-09-11] MEDS ORDERED: DEXTROSE 70% IV SCH ×18 (22:00)
[2016-09-11] MEDS ORDERED: AMINO ACIDS IV SCH ×18 (22:00)
[2016-09-11] MEDS ORDERED: TOTAL PARENTERAL NUTRITION IV SCH ×18 (22:00)
[2016-09-11] MEDS ORDERED: [UNRECOGNIZED DRUG - OTHER] IV SCH ×18 (22:00)
[2016-09-12] VITALS (20 sets, daily range): BP systolic 106–169; BP diastolic 59–90
[2016-09-12] MEDS: ERYTHROMYCIN LACT 125 MG in IV NORMAL SALINE 100ML 100 ML IV SCH ×4 (00:14→18:37)
[2016-09-12] MEDS: METOPROLOL TARTRATE 5 MG/5 ML VIAL. IVP SCH ×4 (01:07→18:36)
[2016-09-12] MEDS: PROPOFOL 100 ML IV PRN ×2 (01:51→07:28)
[2016-09-12] MEDS: FENTANYL PF 100 MCG/2 ML VIAL. IV PRN ×7 (02:21→22:06)
--- NOTE | 2016-09-12 04:04 | CONS ---
DATE OF CONSULTATION: 09/11/2016 REFERRING PHYSICIANS: Dr. Jane Shankar, Dr. Cristhian Shankar, Dr. Enrique Berumen, Dr. Holden Chase and Dr. Marshal Robles. Thank you for the consult. CHIEF COMPLAINT: None. DIAGNOSIS: Small-bowel obstruction versus ileus. PLANNED PROCEDURE: Laparoscopic versus open exploration. HISTORY OF PRESENT ILLNESS: This is a 41-year-old male who had aortic aneurysm repair in April at [facility] in [place], it was a very rough course postoperatively with respiratory failure and ultimately large left sided stroke. He has been at [facility] and subsequently at [facility] for rehab and also subsequent infection. He has been followed by his current team for a while and been noted to have persistent nausea, vomiting, abdominal distention and imaging on CT, abdominal film, x-rays and small bowel follow through of small-bowel obstruction versus ileus. Subsequently, it was felt the patient best be served by laparoscopic versus open exploration to evaluate for possible causes of his bowel distention and correct any surgical causes. He is seen in the ICU. He is currently somewhat sedated, on ventilator, via his tracheostomy. His pleasant and supportive is at the bedside. ALLERGIES: HE HAS AN ALLERGY TO ASPIRIN. MEDICATIONS: Reviewed. PAST MEDICAL HISTORY: History of multiple infections, seizure disorder, stroke in 04/2016 with right-sided hemiparalysis, renal failure, diabetes, heart failure, end-stage renal disease on dialysis, respiratory failure and tracheostomy. Of note on previous imaging, he had concerns for hematoma of the right colon, pancreatic cyst and infarction of the spleen. SOCIAL HISTORY: He is a senior living resident at this time. FAMILY HISTORY: Noncontributory. REVIEW OF SYSTEMS: Unobtainable. PHYSICAL EXAMINATION: GENERAL: Well-developed, somewhat obese male on ventilator. ____ fairly minimally responsive, although he will be alert off sedation. He has tracheostomy in place. CHEST: Bilateral chest excursion. ABDOMEN: Soft, distended, nontender to palpation. He has a PEG tube in place. EXTREMITIES: Some edema and he does not move his right side. LABORATORY DATA: White blood cell count 7.6, hemoglobin 8.5, creatinine 2.6. ____ is reviewed. His INR is 1.3. Acute abdominal series demonstrates persistent small bowel dilatation with contrast distally in the colon. IMAGING: CT from 07/04/2017 demonstrates ____ cm cystic mass in the pancreatic tail. Spleen is normal, clips in the right groin, mild distention with multiple mid small bowel loops. IMPRESSION AND RECOMMENDATIONS: This is a 41-year-old male with small-bowel obstruction versus ileus. We will plan on laparoscopic versus open exploration in the operating room today. The patient's was informed of the risks, benefits, alternatives to procedure, risks including but not limited to bleeding, infection, damage to surrounding structures, risk of anesthesia, risk of an open procedure, certainly a possibility that the source of his obstruction will not be identified. The patient's appeared to understand and her insightful questions were answered and she agrees to proceed. Thank you for allowing participation in the care of this patient. BLU HODGSON MD DR: KETAN/nts JOB#: [id number] / [id number] MARSHAL Grimaldo MD, AMAN MD PATEL, PRATIP MD PATEL, PRAVIN MD
[2016-09-12] MEDS: hydrALAZINE 20 MG/ML VIAL. IVP SCH ×5 (04:15→18:43)
[2016-09-12] MEDS: METOCLOPRAMIDE HCL 10 MG/2 ML VIAL. IV SCH ×3 (05:59→22:06)
[2016-09-12] MEDS: PANTOPRAZOLE IV PUSH 40 MG VIAL. IVP SCH ×2 (06:00→18:35)
[2016-09-12 06:53] LABS: BASO # 0.1 x10^3/uL (0.0-0.2); BASO % 1 % (0-3); EOS % 0 % (0-3); HEMATOCRIT 25.7 % (39.0-53.0); HEMOGLOBIN 8.2 g/dL (13.0-17.5); LYMPH # 2.9 x10^3/uL (1.0-4.8); LYMPH % 21 % (24-48); MEAN CORPUSCULAR HEMOGLOBIN 29 pg (25-35); MEAN CORPUSCULAR HGB CONC 32 g/dL (31-37); MEAN CORPUSCULAR VOLUME 91 fL (79-100); MONO % 12 % (0-9); NEUT % 67 % (31-73); PLATELET COUNT 262 x10^3/uL (140-400); RED BLOOD COUNT 2.82 x10^6/uL (4.30-5.70); RED CELL DISTRIBUTION WIDTH 16.6 % (11.5-14.5)
[2016-09-12 07:07] LABS: ALBUMIN 1.8 g/dL (3.4-5.0); GFR 26.7; PHOSPHORUS 3.8 mg/dL (2.6-4.7); TOTAL BILIRUBIN 0.2 mg/dL (0.2-1.0)
[2016-09-12 07:47] LABS: ALBUMIN/GLOBULIN RATIO 0.4 (1.0-1.7); CREATININE 3.1 mg/dL (0.7-1.3); POTASSIUM 4.1 mmol/L (3.5-5.1); TOTAL PROTEIN 6.4 g/dL (6.4-8.2)
--- NOTE | 2016-09-12 08:18 | PDOC ---
Infectious Disease Note Subjective Subjective on vent ROS ROS unable to do Vital Sign Vital Signs Vital Signs Date Time Temp Pulse Resp B/P Pulse Ox O2 Delivery O2 Flow Rate FiO2 09/12/16 08:02 Room Air 09/12/16 07:00 78 16 151/82 100 09/12/16 04:00 98.1 98.1 Physical Exam PHYSICAL EXAM GENERAL: unresponsive on vent HEENT: PERRL, OC/OP NECK: Supple, no JVD, no LN LUNGS: Clear HEART: S1S2, no gallop, no murmur ABD: Soft, NT, no organomegaly, no rebound EXT: No edema, no cyanosis HEAD BUTLER: unresponsive on vent SKIN: No rash IV: ok Labs Lab Laboratory Tests Test 09/11/16 16:15 09/12/16 00:12 09/12/16 06:35 09/12/16 06:40 O2 Saturation 98% (92-99) Arterial Blood pH 7.30 (7.35-7.45) Arterial Blood pCO2 at Patient Temp 36mmHg (35-46) Arterial Blood pO2 at Patient Temp 130mmHg (75-108) Arterial Blood HCO3 17mmol/L (21-28) Arterial Blood Base Excess -9mmol/L (-3-3) FiO2 40 Glucose (Fingerstick) 94mg/dL (70-99) 100mg/dL (70-99) White Blood Count 14.0x10^3/uL (4.0-11.0) Red Blood Count 2.82x10^6/uL (4.30-5.70) Hemoglobin 8.2g/dL (13.0-17.5) Hematocrit 25.7% (39.0-53.0) Mean Corpuscular Volume 91fL (79-100) Mean Corpuscular Hemoglobin 29pg (25-35) Mean Corpuscular Hemoglobin Concent 32g/dL (31-37) Red Cell Distribution Width 16.6% (11.5-14.5) Platelet Count 262x10^3/uL (140-400) Neutrophils (%) (Auto) 67% (31-73) Lymphocytes (%) (Auto) 21% (24-48) Monocytes (%) (Auto) 12% (0-9) Eosinophils (%) (Auto) 0% (0-3) Basophils (%) (Auto) 1% (0-3) Neutrophils # (Auto) 9.3x10^3uL (1.8-7.7) Lymphocytes # (Auto) 2.9x10^3/uL (1.0-4.8) Monocytes # (Auto) 1.7x10^3/uL (0.0-1.1) Eosinophils # (Auto) 0.0x10^3/uL (0.0-0.7) Basophils # (Auto) 0.1x10^3/uL (0.0-0.2) Sodium Level 143mmol/L (136-145) Potassium Level 4.1mmol/L (3.5-5.1) Chloride Level 113mmol/L (98-107) Carbon Dioxide Level 18mmol/L (21-32) Anion Gap 12 (6-14) Blood Urea Nitrogen 40mg/dL (8-26) Creatinine 3.1mg/dL (0.7-1.3) Estimated GFR (Cockcroft-Gault) 26.7 BUN/Creatinine Ratio 13 (6-20) Glucose Level 104mg/dL (70-99) Calcium Level 9.0mg/dL (8.5-10.1) Phosphorus Level 3.8mg/dL (2.6-4.7) Magnesium Level 2.0mg/dL (1.8-2.4) Total Bilirubin 0.2mg/dL (0.2-1.0) Aspartate Amino Transf (AST/SGOT) 22U/L (15-37) Alanine Aminotransferase (ALT/SGPT) 14U/L (16-63) Alkaline Phosphatase 84U/L (46-116) Total Protein 6.4g/dL (6.4-8.2) Albumin 1.8g/dL (3.4-5.0) Albumin/Globulin Ratio 0.4 (1.0-1.7) Triglycerides Level 160mg/dL (0-150) Objective Assessment Bowel obstruction Fungemia PSA bacteremia CVA Persistant veg state Thoracic aneurysm surgery Plan Plan of Care cont cefepime and micafungin supportive care d/w EDWARD Miller MD Sep 12, 2016 08:18
[2016-09-12] MEDS: IPRATRPIUM/ALBUTEROL 0.5/2.5MG 3 ML NEBU. NEB SCH ×4 (08:20→20:54)
--- NOTE | 2016-09-12 08:27 | PDOC ---
HEIKEBRISEYDALUZ ELENA SUSTAINABLE DESIGN CONSULTANT 09/12/16 0827: IM PROGRESS NOTES- Subjective Subjective opens eyes not interactive Objective Objective awake, no distress, no response to verbal commands or verbal interaction Vitals Vital Signs Date Time Temp Pulse Resp B/P Pulse Ox O2 Delivery O2 Flow Rate FiO2 09/12/16 08:02 Room Air 09/12/16 07:00 78 16 151/82 100 09/12/16 04:00 98.1 98.1 Input & Output Intake and Output 09/12/16 07:00 Intake Total 2440 ml Output Total 1835 ml Balance 605 ml IV Total 1615 ml Other 825 ml Output Urine Total 835 ml Gastric Drainage Total 1000 ml Physical Exam Physical Exam General appearance - awake, non responsive to verbal, no distress Mental Status - not responsive verbally Head - normal Neck- dressing R neck, trach midline Chest - clear to auscultation, no wheezes, rales or rhonchi Heart - S1 and S2 normal Abdomen -firm, surgical dressing in place, BS minimal Neurological - post old CVA with deficits; currently with no acute neurological deficits Musculoskeletal - no muscular tenderness noted Extremities - no pedal edema, SCD ELIAS Skin - warm and dry Labs Laboratory Tests Test 09/10/16 14:45 09/10/16 16:25 09/11/16 05:45 09/11/16 16:15 White Blood Count 14.3x10^3/uL (4.0-11.0) 10.6x10^3/uL (4.0-11.0) Red Blood Count 3.19x10^6/uL (4.30-5.70) 2.83x10^6/uL (4.30-5.70) Hemoglobin 9.4g/dL (13.0-17.5) 8.5g/dL (13.0-17.5) Hematocrit 28.6% (39.0-53.0) 25.1% (39.0-53.0) Mean Corpuscular Volume 90fL (79-100) 89fL (79-100) Mean Corpuscular Hemoglobin 30pg (25-35) 30pg (25-35) Mean Corpuscular Hemoglobin Concent 33g/dL (31-37) 34g/dL (31-37) Red Cell Distribution Width 15.9% (11.5-14.5) 16.7% (11.5-14.5) Platelet Count 274x10^3/uL (140-400) 275x10^3/uL (140-400) Neutrophils (%) (Auto) 67% (31-73) 53% (31-73) Lymphocytes (%) (Auto) 21% (24-48) 31% (24-48) Monocytes (%) (Auto) 8% (0-9) 11% (0-9) Eosinophils (%) (Auto) 3% (0-3) 5% (0-3) Basophils (%) (Auto) 1% (0-3) 1% (0-3) Neutrophils # (Auto) 9.6x10^3uL (1.8-7.7) 5.6x10^3uL (1.8-7.7) Lymphocytes # (Auto) 3.0x10^3/uL (1.0-4.8) 3.3x10^3/uL (1.0-4.8) Monocytes # (Auto) 1.2x10^3/uL (0.0-1.1) 1.1x10^3/uL (0.0-1.1) Eosinophils # (Auto) 0.4x10^3/uL (0.0-0.7) 0.5x10^3/uL (0.0-0.7) Basophils # (Auto) 0.1x10^3/uL (0.0-0.2) 0.1x10^3/uL (0.0-0.2) Prothrombin Time 14.2SEC (11.7-14.0) 15.0SEC (11.7-14.0) Prothromb Time International Ratio 1.2 (0.8-1.1) 1.3 (0.8-1.1) Nasal Screen MRSA (PCR) Negative (Negative) Sodium Level 144mmol/L (136-145) 146mmol/L (136-145) Potassium Level 3.5mmol/L (3.5-5.1) 3.6mmol/L (3.5-5.1) Chloride Level 111mmol/L (98-107) 114mmol/L (98-107) Carbon Dioxide Level 22mmol/L (21-32) 20mmol/L (21-32) Anion Gap 11 (6-14) 12 (6-14) Blood Urea Nitrogen 29mg/dL (8-26) 31mg/dL (8-26) Creatinine 2.0mg/dL (0.7-1.3) 2.6mg/dL (0.7-1.3) Estimated GFR (Cockcroft-Gault) 44.3 32.8 BUN/Creatinine Ratio 15 (6-20) 12 (6-20) Glucose Level 100mg/dL (70-99) 81mg/dL (70-99) Lactic Acid Level 1.0mmol/L (0.4-2.0) Calcium Level 9.3mg/dL (8.5-10.1) 9.1mg/dL (8.5-10.1) Magnesium Level 1.2mg/dL (1.8-2.4) 2.2mg/dL (1.8-2.4) Total Bilirubin 0.6mg/dL (0.2-1.0) 0.3mg/dL (0.2-1.0) Aspartate Amino Transf (AST/SGOT) 17U/L (15-37) 21U/L (15-37) Alanine Aminotransferase (ALT/SGPT) 17U/L (16-63) 16U/L (16-63) Alkaline Phosphatase 93U/L (46-116) 89U/L (46-116) Total Protein 7.9g/dL (6.4-8.2) 7.1g/dL (6.4-8.2) Albumin 2.2g/dL (3.4-5.0) 2.0g/dL (3.4-5.0) Albumin/Globulin Ratio 0.4 (1.0-1.7) 0.4 (1.0-1.7) O2 Saturation 99% (92-99) 98% (92-99) Arterial Blood pH 7.34 (7.35-7.45) 7.30 (7.35-7.45) Arterial Blood pCO2 at Patient Temp 35mmHg (35-46) 36mmHg (35-46) Arterial Blood pO2 at Patient Temp 203mmHg (75-108) 130mmHg (75-108) Arterial Blood HCO3 19mmol/L (21-28) 17mmol/L (21-28) Arterial Blood Base Excess -7mmol/L (-3-3) -9mmol/L (-3-3) FiO2 50 40 Test 09/12/16 00:12 09/12/16 06:35 09/12/16 06:40 Glucose (Fingerstick) 94mg/dL (70-99) 100mg/dL (70-99) White Blood Count 14.0x10^3/uL (4.0-11.0) Red Blood Count 2.82x10^6/uL (4.30-5.70) Hemoglobin 8.2g/dL (13.0-17.5) Hematocrit 25.7% (39.0-53.0) Mean Corpuscular Volume 91fL (79-100) Mean Corpuscular Hemoglobin 29pg (25-35) Mean Corpuscular Hemoglobin Concent 32g/dL (31-37) Red Cell Distribution Width 16.6% (11.5-14.5) Platelet Count 262x10^3/uL (140-400) Neutrophils (%) (Auto) 67% (31-73) Lymphocytes (%) (Auto) 21% (24-48) Monocytes (%) (Auto) 12% (0-9) Eosinophils (%) (Auto) 0% (0-3) Basophils (%) (Auto) 1% (0-3) Neutrophils # (Auto) 9.3x10^3uL (1.8-7.7) Lymphocytes # (Auto) 2.9x10^3/uL (1.0-4.8) Monocytes # (Auto) 1.7x10^3/uL (0.0-1.1) Eosinophils # (Auto) 0.0x10^3/uL (0.0-0.7) Basophils # (Auto) 0.1x10^3/uL (0.0-0.2) Sodium Level 143mmol/L (136-145) Potassium Level 4.1mmol/L (3.5-5.1) Chloride Level 113mmol/L (98-107) Carbon Dioxide Level 18mmol/L (21-32) Anion Gap 12 (6-14) Blood Urea Nitrogen 40mg/dL (8-26) Creatinine 3.1mg/dL (0.7-1.3) Estimated GFR (Cockcroft-Gault) 26.7 BUN/Creatinine Ratio 13 (6-20) Glucose Level 104mg/dL (70-99) Calcium Level 9.0mg/dL (8.5-10.1) Phosphorus Level 3.8mg/dL (2.6-4.7) Magnesium Level 2.0mg/dL (1.8-2.4) Total Bilirubin 0.2mg/dL (0.2-1.0) Aspartate Amino Transf (AST/SGOT) 22U/L (15-37) Alanine Aminotransferase (ALT/SGPT) 14U/L (16-63) Alkaline Phosphatase 84U/L (46-116) Total Protein 6.4g/dL (6.4-8.2) Albumin 1.8g/dL (3.4-5.0) Albumin/Globulin Ratio 0.4 (1.0-1.7) Triglycerides Level 160mg/dL (0-150) Laboratory Tests Test 09/11/16 16:15 09/12/16 00:12 09/12/16 06:35 09/12/16 06:40 O2 Saturation 98% (92-99) Arterial Blood pH 7.30 (7.35-7.45) Arterial Blood pCO2 at Patient Temp 36mmHg (35-46) Arterial Blood pO2 at Patient Temp 130mmHg (75-108) Arterial Blood HCO3 17mmol/L (21-28) Arterial Blood Base Excess -9mmol/L (-3-3) FiO2 40 Glucose (Fingerstick) 94mg/dL (70-99) 100mg/dL (70-99) White Blood Count 14.0x10^3/uL (4.0-11.0) Red Blood Count 2.82x10^6/uL (4.30-5.70) Hemoglobin 8.2g/dL (13.0-17.5) Hematocrit 25.7% (39.0-53.0) Mean Corpuscular Volume 91fL (79-100) Mean Corpuscular Hemoglobin 29pg (25-35) Mean Corpuscular Hemoglobin Concent 32g/dL (31-37) Red Cell Distribution Width 16.6% (11.5-14.5) Platelet Count 262x10^3/uL (140-400) Neutrophils (%) (Auto) 67% (31-73) Lymphocytes (%) (Auto) 21% (24-48) Monocytes (%) (Auto) 12% (0-9) Eosinophils (%) (Auto) 0% (0-3) Basophils (%) (Auto) 1% (0-3) Neutrophils # (Auto) 9.3x10^3uL (1.8-7.7) Lymphocytes # (Auto) 2.9x10^3/uL (1.0-4.8) Monocytes # (Auto) 1.7x10^3/uL (0.0-1.1) Eosinophils # (Auto) 0.0x10^3/uL (0.0-0.7) Basophils # (Auto) 0.1x10^3/uL (0.0-0.2) Sodium Level 143mmol/L (136-145) Potassium Level 4.1mmol/L (3.5-5.1) Chloride Level 113mmol/L (98-107) Carbon Dioxide Level 18mmol/L (21-32) Anion Gap 12 (6-14) Blood Urea Nitrogen 40mg/dL (8-26) Creatinine 3.1mg/dL (0.7-1.3) Estimated GFR (Cockcroft-Gault) 26.7 BUN/Creatinine Ratio 13 (6-20) Glucose Level 104mg/dL (70-99) Calcium Level 9.0mg/dL (8.5-10.1) Phosphorus Level 3.8mg/dL (2.6-4.7) Magnesium Level 2.0mg/dL (1.8-2.4) Total Bilirubin 0.2mg/dL (0.2-1.0) Aspartate Amino Transf (AST/SGOT) 22U/L (15-37) Alanine Aminotransferase (ALT/SGPT) 14U/L (16-63) Alkaline Phosphatase 84U/L (46-116) Total Protein 6.4g/dL (6.4-8.2) Albumin 1.8g/dL (3.4-5.0) Albumin/Globulin Ratio 0.4 (1.0-1.7) Triglycerides Level 160mg/dL (0-150) Meds Current Medications Amiodarone HCl (Cordarone) 200 mg DAILY PEG ; Start 09/11/16 at 09:00; Stop at 17:54; Status DC Amlodipine Besylate (Norvasc) 5 mg DAILY PEG ; Start 09/11/16 at 09:00 Amlodipine Besylate (Norvasc) 5 mg DAILY PO ; Start 09/11/16 at 09:00; Stop at 09:00; Status DC Bupivacaine HCl/ Epinephrine Bitart (Sensorcain-Mpf Epi 0.5%-1:[id number]) 30 ml STK -MED ONCE INJ Last administered on 09/11/16 08:32; Start 09/11/16 at 08:32; Stop 09/11/16 at 08:48; Status DC Enoxaparin Sodium (Lovenox 40mg Syringe) 40 mg Q24H SQ ; Start 09/11/16 at 11:00 Ephedrine Sulfate 50 mg STK-MED ONCE IV ; Start 09/11/16 at 08:27; Stop 09/11/16 at 08:28; Status DC Fentanyl Citrate 50 mcg 50 mcg PRN Q2HR PRN IV PAIN Last administered on 08:02; Start 09/11/16 at 17:15 Info 1 each PRN DAILY PRN MC SEE COMMENTS Last administered on 09/11/16 16:08; Start 09/11/16 at 16:00; Stop 09/11/16 at 17:55; Status DC Info 1 each PRN DAILY PRN MC SEE COMMENTS; Start 09/11/16 at 19:15 Lacosamide (Vimpat) 100 mg DAILY10 PEG ; Start 09/11/16 at 10:00; Stop 09/11/16 at 10:00; Status DC Lacosamide (Vimpat) 100 mg DAILY10 PO ; Start 09/11/16 at 10:00; Stop 09/11/16 at 10:00; Status DC Lacosamide/Sodium Chloride (Vimpat/Iv Sodium Chloride 0.9% 50ml) 60 ml @ 120 mls/hr DAILY10 IV Last administered on 09/11/16 11:23; Start 09/11/16 at 10:00 Miconazole Nitrate 1 rk 1 rk BID TP Last administered on 09/11/16 21:14; Start 09/11/16 at 09:00 Midazolam HCl (Versed) 2 mg STK-MED ONCE .ROUTE ; Start 09/11/16 at 09:03; Stop 09/11/16 at 09:04; Status DC Morphine Sulfate 10 mg STK-MED ONCE .ROUTE ; Start 09/11/16 at 09:02; Stop at 09:03; Status DC Phenylephrine HCl 1 mg STK-MED ONCE IV ; Start 09/11/16 at 08:34; Stop 09/11/16 at 08:35; Status DC Potassium Chloride 30 meq/ Sodium Chloride 1,015 ml @ 40 mls/hr Q24H IV ; Start 09/11/16 at 18:00 Potassium Chloride/Sodium Chloride (Iv Sodium Chloride 0.45%) 1,015 ml @ 40 mls /hr Q24H IV ; Start 09/11/16 at 18:00; Status Cancel Sodium Bicarbonate 100 meq 100 meq 1X ONCE IV Last administered on 09/11/16 19 :37; Start 09/11/16 at 19:30; Stop 09/11/16 at 19:31; Status DC Sodium Chloride 3 ml 3 ml QSHIFT PRN IV AFTER MEDS AND BLOOD DRAWS; Start at 09:30 Sodium Chloride/ Potassium Chloride/ Potassium Phosphate/ Magnesium Sulfate/ Calcium Gluconate/ Multivitamins/ Chromium/Copper/ Manganese/Seleni/ Zn/Total Parenteral Nutrition/Amino Acids/Dextrose (Sodium Chloride/ Potassium Phosphate / Infuvite Adult/ Multitrace-5 Co... 1,512 ml @ 63 mls/hr TPN CONT IV ; Start 09/11/16 at 22:00; Stop 09/11/16 at 22:00; Status DC Sodium Chloride/ Potassium Chloride/ Potassium Phosphate/ Magnesium Sulfate/ Calcium Gluconate/ Multivitamins/ Chromium/Copper/ Manganese/Seleni/ Zn/Total Parenteral Nutrition/Amino Acids/Dextrose (Sodium Chloride/ Potassium Phosphate / Infuvite Adult/ Multitrace-5 Co... 1,512 ml @ 63 mls/hr TPN CONT IV Last administered on 09/11/16 22:18; Start 09/11/16 at 22:00; Stop 09/12/16 at 21:59 Assessment Assessment IMPRESSION: 1. SBO s/p SB resection 09/11/16 2. Michaelle parapsilosis sepsis 3. PSA sepsis due to central line blood stream infection 4. DVT LUE with suspected GIB recent 5. 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 HTN 7. anemia CD/ESRD-sepsis 8. ESRD post ARF with HD 3 times weekly 9. suspected GIB 10. DM II 11. seizure disorder Mar 2016 12. h/o splenic infarct 13, pancreatic cyst 14. chronic trach 15. PEG chronic 16. dysphagia with chronic ETF 17. encephalopathy -non responsive post CVA 18. diastolic CHF EF 50-55% not acute 19. chronic respiratory failure with trach 20. tachypneic secondary to sepsis upon admission with MV initiated-not acute respiratory failure 21. pneumonia 22. severe PCL malnutrition 23. hypomagnesia PLAN: SBO NPO surgical consult repair planned 09/11/16 GI consult cardiology consult -surgical clearance POD #1 SB resection Sepsis ID consult IV antibiotics Cefepime, Erythromycin, and Micafungin Admit WBC 14.3 09/12 14.0 chronic respiratory failure pulmonary consult vent nebulizer tx trach chronic ESRD renal consult HD 3 times weekly Admit Mg 1.2-Mg SO4 4gm IV 09/11 2.2 K 3.5 09/12 4.1 PO4 3.8 monitor anemia CD Admit Hgb 9.4 09/12 8.2 TC 2 unit for surgery ?recent GIB-Protonix 40 IV BID monitor DVT LUE SCD/ELIAS pre op Lovenox post op PPI continue eval/monitor HTN malignant 09/10 with lopressor IV initiated stable labile with medications per nursing notes seizure disorder continue Vimpat -change to IV until ok to resume PEG meds monitor severe PCL malnutrition NPO Peg clamped x48hr post surgery TPN per pharmacy FSBS q6hr with low intensity SSI BS 81-[address] Fajardo 09/11-no longer needed. prognosis poor Appreciate all the consultants assistance with Mr. Gerard's care. For more details regarding further plans, please refer to the orders. Plan Plan For more details regarding further plans, please refer to the orders. KAYLIE FAJARDO MD 09/12/16 0945: IM PROGRESS NOTES- Assessment Assessment stable. D/w yesterday. Ok to transfer to [facility] when ok with surgery. The patient was seen and examined by me. Chart reviewed and plan of care formulated. Discussed with, reviewed and agree with [employer] CONSULTANT's notes, plan of care and orders with modifications as necessary. For more details regarding further plans, please refer to the orders. LUZ ELENA CHONG APRN Sep 12, 2016 08:27 KAYLIE FAJARDO MD Sep 12, 2016 09:45
--- NOTE | 2016-09-12 08:36 | DISCH ---
DISCHARGE FINAL DIAGNOSIS Problems Medical Problems: (1) Small bowel obstruction Status: Acute CONDITION ON DISCHARGE: Stable ADMIT TO LTAC: Yes (PT OT eval and treat) POST DISCHARGE ORDERS ACTIVITY ORDERS: Activity as tolerated WEIGHT BEARING STATUS: As tolerated DIET AFTER DISCHARGE: NPO WOUND/INCISION CARE: Change dressing (R neck daily. ) OTHER WOUND INSTRUCTIONS: Post op wound care per Dr. John instructions OTHER ORDERS: CHECKS AFTER DISCHARGE CHECKS AFTER DISCHARGE: Weigh Yourself Daily COMMENTS: VS per routine FOLLOW-UP PHYSICIAN FOLLOW-UP: Admit to Dr. Shankar ADDITIONAL FOLLOW-UP: consult Dr. Lara, Dr. Enrike Robles, Dr. Lawanda Robles LAB ORDERS FOR FOLLOW-UP: CBC with diff, CMP, Mg, PO4, and pre alb in AM TREATMENT/EQUIPMENT ORDERS INFUSION EQUIPMENT NEEDED: PICC Line (PICC dressing changes/cap changes per protocol ), Feeding Tube (for ETF), PortaCath (HD 3x weekly ) RESPIRATORY EQUIPMENT NEEDED: Oxygen (per trach, MV to be managed by Dr. Lara ), Nebulizer (QID ) LUZ ELENA CHONG APRN Sep 12, 2016 08:36
[2016-09-12 08:44] LABS: HCO3 ABG 16 mmol/L (21-28); PCO2 ABG 32 mmHg (35-46); PH ABG 7.33 (7.35-7.45); PO2 ABG 132 mmHg (75-108); SAT O2 ABG 98 % (92-99)
[2016-09-12] MEDS: AMLODIPINE BESYLATE 5 MG TABLET PEG SCH (08:46)
[2016-09-12 08:50] LABS: FIO2 ABG 40
--- NOTE | 2016-09-12 09:34 | PDOC2 ---
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 with Large acute L CVA post thoracic dissection repair with right side hemiparesis , dysphagia, encephalopathy ), Seizure, Other (encephalopathy post CVA with non responsiveness) GI: GI bleed (suspected recent ), Other (dysphagia; partial SBO; hematoma R colon ) Heme/Onc: Anemia NOS (chronic with ESRD/sepsis ), Other (LUE DVT-Heparin stopped due to question GIB; h/o splenic infarct) Hepatobiliary: Other (pancreatic cyst) Psych: Other (encephalopathy ) Infectious disease: Other (PSA sepsis due to central line blood stream infection; isamar parapsilosis sepsis) Renal/: Chronic renal failure (ESRD with HD 3time weekly ) Endocrine: Diabetes (Type II ) Past Surgical History Past Surgical History: Other (PEG placement; tracheostomy; dissecting thoracic aneurysm repair 04/23/2016 ) Family History Family History: Diabetes, Hypertension Social History Quit ALCOHOL: none Drugs: None Lives: Correction Current Problem List Problem List Problems Medical Problems: (1) Small bowel obstruction Status: Acute Current Medications Current Medications Current Medications Propofol (Diprivan) 100 ml @ As Directed STK-MED ONCE IV ; Start 09/10/16 at 14: 46; Stop 09/10/16 at 14:47; Status DC Pantoprazole Sodium (Protonix Vial) 40 mg [id number] IVP Last administered on 06:00; Start 09/10/16 at 18:00 Metoprolol Tartrate (Lopressor) 5 mg Q6HRS IVP Last administered on 09/12/16 06 :07; Start 09/10/16 at 18:00 Hydralazine HCl (Apresoline) 10 mg PRN Q4HRS PRN IVP ELEVATED BP, SEE COMMENTS ; Start 09/10/16 at 16:15; Stop 09/11/16 at 17:54; Status DC Sodium Bicarbonate 50 meq 50 meq 1X ONCE IV Last administered on 09/10/16 18: 25; Start 09/10/16 at 18:00; Stop 09/10/16 at 18:01; Status DC Potassium Chloride/Sodium Chloride 1,000 ml @ 150 mls/hr Q6H40M IV Last administered on 09/11/16 06:07; Start 09/10/16 at 20:00; Stop 09/11/16 at 08:03; Status DC Magnesium Sulfate/ Dextrose 100 ml @ 25 mls/hr 1X ONCE IV Last administered on 09/10/16 20:31; Start 09/10/16 at 20:00; Stop 09/10/16 at 23:59; Status DC Micafungin Sodium 100 mg/Dextrose 100 ml @ 100 mls/hr Q24H IV Last administered on 09/11/16 19:38; Start 09/10/16 at 20:00 Propofol (Diprivan) 100 ml @ 0 mls/hr CONT PRN IV SEE I/O RECORD Last administered on 09/12/16 07:28; Start 09/10/16 at 20:00 Hydralazine HCl (Apresoline) 10 mg Q6HRS IVP Last administered on 09/12/16 04: 15; Start 09/11/16 at 00:00 Fentanyl Citrate (Fentanyl 2ml Vial) 25 mcg PRN Q6HRS PRN IV SEVERE PAIN; Start 09/10/16 at 20:45 Lorazepam 0.5 mg 0.5 mg PRN Q6HRS PRN IV ANXIETY / AGITATION; Start 09/10/16 at 20:45 Erythromycin Lactobionate/ Sodium Chloride (Erythrocin/Iv Sodium Chloride 0.9% 100ml) 100 ml @ 100 mls/hr Q6HRS IV Last administered on 09/12/16 06:03; Start 09/11/16 at 00:00 Ondansetron HCl (Zofran) 4 mg PRN Q8HRS PRN IV NAUSEA/VOMITING; Start 09/10/16 at 20:45 Acetaminophen (Tylenol) 650 mg PRN Q6HRS PRN PEG MILD PAIN / TEMP; Start at 20:45 Amlodipine Besylate (Norvasc) 5 mg DAILY PO ; Start 09/11/16 at 09:00; Stop at 09:00; Status DC Metoclopramide HCl (Reglan) 10 mg PRN Q8HRS PRN IV NAUSEA/VOMITING; Start at 20:45; Stop 09/11/16 at 06:00; Status DC Miconazole Nitrate (Monistat-Derm) 1 rk BID TP ; Start 09/10/16 at 21:00; Stop 09/10/16 at 21:24; Status DC Sodium Chloride (Normal Saline Flush 3ml) 3 ml QSHIFT PRN IV AFTER MEDS AND BLOOD DRAWS; Start 09/10/16 at 20:45 Lacosamide (Vimpat) 100 mg DAILY10 PO ; Start 09/11/16 at 10:00; Stop 09/11/16 at 10:00; Status DC Amlodipine Besylate (Norvasc) 5 mg DAILY PEG ; Start 09/11/16 at 09:00 Lacosamide (Vimpat) 100 mg DAILY10 PEG ; Start 09/11/16 at 10:00; Stop 09/11/16 at 10:00; Status DC Albuterol/ Ipratropium (Duoneb) 3 ml RTQID NEB Last administered on 09/12/16 08 :20; Start 09/11/16 at 08:00 Amiodarone HCl 200 mg 200 mg DAILY PEG ; Start 09/11/16 at 09:00; Stop 09/11/16 at 17:54; Status DC Cefepime HCl/ Sodium Chloride (Maxipime/Iv Sodium Chloride 0.9% 100ml) 100 ml @ 200 mls/hr Q12HR IV Last administered on 09/11/16 21:13; Start 09/10/16 at 22: 00 Alteplase, Recombinant (Cathflo) 2 mg 1X ONCE INT CAT Last administered on 09/10 21:48; Start 09/10/16 at 22:00; Stop 09/10/16 at 22:01; Status DC Miconazole Nitrate 1 rk 1 rk BID TP Last administered on 09/11/16 21:14; Start 09/11/16 at 09:00 Cefazolin Sodium/ Dextrose 50 ml @ 100 mls/hr PREOP PRN PRN IV PREOP; Start at 07:00; Stop 09/12/16 at 06:59; Status DC Sodium Chloride 1,000 ml @ 1,000 mls/hr 1X ONCE IV Last administered on 02:22; Start 09/11/16 at 02:30; Stop 09/11/16 at 03:29; Status DC Sodium Chloride (Iv Sodium Chloride 0.9% 500ml Bag) 500 ml @ 500 mls/hr 1X ONCE IV Last administered on 09/11/16 01:00; Start 09/11/16 at 01:00; Stop at 02:21; Status DC Metoclopramide HCl (Reglan) 10 mg Q8HRS IV Last administered on 09/12/16 05:59 ; Start 09/11/16 at 06:00 Dexamethasone Sodium Phosphate (Decadron) 20 mg STK-MED ONCE .ROUTE ; Start 09/11 at 07:36; Stop 09/11/16 at 07:37; Status DC Ondansetron HCl 4 mg 4 mg STK-MED ONCE .ROUTE ; Start 09/11/16 at 07:36; Stop 09/11/16 at 07:37; Status DC Propofol (Diprivan) 20 ml @ As Directed STK-MED ONCE IV ; Start 09/11/16 at 07:36 ; Stop 09/11/16 at 07:37; Status DC Fentanyl Citrate (Fentanyl 2ml Vial) 100 mcg STK-MED ONCE .ROUTE ; Start at 07:37; Stop 09/11/16 at 07:38; Status DC Rocuronium [place] (Zemuron) 50 mg STK-MED ONCE .ROUTE ; Start 09/11/16 at 07:37 ; Stop 09/11/16 at 07:38; Status DC Desflurane 60 ml 60 ml STK-MED ONCE IH ; Start 09/11/16 at 07:37; Stop 09/11/16 at 07:38; Status DC Cefazolin Sodium/ Dextrose 50 ml @ 100 mls/hr 1X PREOP IV Last administered on 09/11/16 08:48; Start 09/11/16 at 08:00 Lacosamide/Sodium Chloride (Vimpat/Iv Sodium Chloride 0.9% 50ml) 60 ml @ 120 mls/hr DAILY10 IV Last administered on 09/11/16 11:23; Start 09/11/16 at 10:00 Propofol (Diprivan) 1,000 mg STK-MED ONCE IV ; Start 09/10/16 at 14:46; Stop 09/11 at 08:09; Status DC Ephedrine Sulfate 50 mg STK-MED ONCE IV ; Start 09/11/16 at 08:27; Stop 09/11/16 at 08:28; Status DC Phenylephrine HCl 1 mg STK-MED ONCE IV ; Start 09/11/16 at 08:34; Stop 09/11/16 at 08:35; Status DC Bupivacaine HCl/ Epinephrine Bitart (Sensorcain-Mpf Epi 0.5%-1:[id number]) 30 ml STK -MED ONCE INJ Last administered on 09/11/16 08:32; Start 09/11/16 at 08:32; Stop 09/11/16 at 08:48; Status DC Morphine Sulfate 10 mg STK-MED ONCE .ROUTE ; Start 09/11/16 at 09:02; Stop at 09:03; Status DC Midazolam HCl (Versed) 2 mg STK-MED ONCE .ROUTE ; Start 09/11/16 at 09:03; Stop 09/11/16 at 09:04; Status DC Enoxaparin Sodium (Lovenox 40mg Syringe) 40 mg Q24H SQ ; Start 09/11/16 at 11:00 Sodium Chloride 3 ml 3 ml QSHIFT PRN IV AFTER MEDS AND BLOOD DRAWS; Start at 09:30 Sodium Chloride/ Potassium Chloride/ Potassium Phosphate/ Magnesium Sulfate/ Calcium Gluconate/ Multivitamins/ Chromium/Copper/ Manganese/Seleni/ Zn/Total Parenteral Nutrition/Amino Acids/Dextrose (Sodium Chloride/ Potassium Phosphate / Infuvite Adult/ Multitrace-5 Co... 1,512 ml @ 63 mls/hr TPN CONT IV ; Start 09/11/16 at 22:00; Stop 09/11/16 at 22:00; Status DC Info 1 each PRN DAILY PRN MC SEE COMMENTS Last administered on 09/11/16 16:08; Start 09/11/16 at 16:00; Stop 09/11/16 at 17:55; Status DC Fentanyl Citrate 50 mcg 50 mcg PRN Q2HR PRN IV PAIN Last administered on 08:02; Start 09/11/16 at 17:15 Potassium Chloride 30 meq/ Sodium Chloride 1,015 ml @ 40 mls/hr Q24H IV ; Start 09/11/16 at 18:00 Potassium Chloride/Sodium Chloride (Iv Sodium Chloride 0.45%) 1,015 ml @ 40 mls /hr Q24H IV ; Start 09/11/16 at 18:00; Status Cancel Info 1 each PRN DAILY PRN MC SEE COMMENTS; Start 09/11/16 at 19:15 Sodium Bicarbonate 100 meq 100 meq 1X ONCE IV Last administered on 09/11/16 19 :37; Start 09/11/16 at 19:30; Stop 09/11/16 at 19:31; Status DC Sodium Chloride/ Potassium Chloride/ Potassium Phosphate/ Magnesium Sulfate/ Calcium Gluconate/ Multivitamins/ Chromium/Copper/ Manganese/Seleni/ Zn/Total Parenteral Nutrition/Amino Acids/Dextrose (Sodium Chloride/ Potassium Phosphate / Infuvite Adult/ Multitrace-5 Co... 1,512 ml @ 63 mls/hr TPN CONT IV Last administered on 09/11/16 22:18; Start 09/11/16 at 22:00; Stop 09/12/16 at 21:59 Insulin Aspart (Novolog) Q6HRS SQ ; Start 09/12/16 at 12:00 Metronidazole (FLAGYL 500Mmg PREMIX) 500 mg STK-MED ONCE IV ; Start 09/11/16 at 09:20; Stop 09/12/16 at 08:54; Status DC Active Scripts Active Reported Amiodarone Hcl 200 Mg Tablet 1 Tab PEG DAILY Docusate Sodium 100 Mg Capsule 100 Mg PEG BID Miconazole Nitrate 130 Gm Aero.powd 130 Gm TP PRN PRN Reglan (Metoclopramide Hcl) 10 Mg Tablet 10 Mg IV Q8HRS Amlodipine Besylate 10 Mg Tablet 10 Mg PEG DAILY Acetaminophen 160 Mg/5 Ml Solution 650 Mg PEG PRN Q6HRS PRN Ondansetron Odt (Ondansetron) 4 Mg Tab.rapdis 4 Mg PEG Q8HRS PRN Ondansetron Hcl 4 Mg/2 Ml Syr (Ondansetron Hcl/Pf) 4 Mg/2 Ml Disp.syrin 4 Mg IV PRN Q8HRS PRN Duoneb 0.5-3(2.5) Mg/3 Ml (Albuterol/Ipratropium) 3 Ml Ampul.neb 3 Ml NEB BID Pantoprazole Sodium 40 Mg Tablet.dr 40 Mg IV DAILY Cefepime Hcl 2 Gm Vial 2 Gm IV Q12HR Erythrocin Lactobionate (Erythromycin Lactobionate) 500 Mg Vial 125 Mg IV Q6HRS Eraxis (Water Diluent) (Anidulafungin) 100 Mg Vial 100 Mg IV DAILY Lorazepam 0.5 Mg Tablet 0.5 Mg IV PRN Q6HRS PRN FENTANYL 25mcg/hr (Fentanyl) 1 Each Patch.td72 25 Mcg IV PRN Q6HRS PRN Hydralazine Hcl 10 Mg Tablet 10 Mg IV Q6HRS Vimpat (Lacosamide) 1 Each Tab.ds.pk 100 Mg PO DAILY Allergies Allergies: Coded Allergies: aspirin (Verified Allergy, Intermediate, 09/07/16) ROS Review of System Unable to be obtained from pt due to underlying encephalopahty Physical Exam Physical Exam General Appearance: Awake Alert Oriented x 0 In no Distress Eyes: VIsion Unchanged Conjunctiva Normal EN: No EN Drainage Mucous Memb. moist Neck: no JVD no JVP Supple no palp Thyromegaly; Trache in place CVS: S1 S2 ? Murmur No Gallop No Rub + Edema on left upper ext Resp: no Rales occ Rhonchi no Acc. Muscle use GI: BS hypoactive NO Bruit Non Tender ? min Distended : no CVA tenderness; no Suprapubic Tenderness SKIN: no visible Rashes Breast Exam deferred Mu.Sk: Adequate ROM no Muscle Atrophy Heme: Unable to palpate Obvious LAD nopalp Splenomegaly NEURO: Unable to assess Cranial Nerves II - XII ect due to lack of co- operation while encephalopathic Psych: Unable to assess due to lack of co-operation while encephalopathic Vital Signs Vital Signs Date Time Temp Pulse Resp B/P Pulse Ox O2 Delivery O2 Flow Rate FiO2 09/12/16 08:44 Room Air 09/12/16 08:20 100 09/12/16 07:00 78 16 151/82 09/12/16 04:00 98.1 98.1 Assessment & Plan STEPHENIE - watch trend for now; Current FLuid and E-lyte status does not necessitate emergent need for Dialysis. Will re-evaluate for Dialysis in am; baseline Creat is NA but usually runs in 2-3 range depending on fluid status. ? CKD III/ IV - after STEPHENIE/ ATN recovery. CT Reports WRT kidney : There is a small cyst in the lateral aspect of the left kidney. The kidneys show no evidence of obstruction. Met ACidosis - Add Acetate to TPN for tonite SEv HypoAlb - TPn for now; TF when Gut is ready to use ^Na - now better. Discussed Plan of Care and prognosis etc. at length with family. Labs Labs Laboratory Tests Test 09/10/16 14:45 09/10/16 16:25 09/11/16 05:45 09/11/16 16:15 White Blood Count 14.3x10^3/uL (4.0-11.0) 10.6x10^3/uL (4.0-11.0) Red Blood Count 3.19x10^6/uL (4.30-5.70) 2.83x10^6/uL (4.30-5.70) Hemoglobin 9.4g/dL (13.0-17.5) 8.5g/dL (13.0-17.5) Hematocrit 28.6% (39.0-53.0) 25.1% (39.0-53.0) Mean Corpuscular Volume 90fL (79-100) 89fL (79-100) Mean Corpuscular Hemoglobin 30pg (25-35) 30pg (25-35) Mean Corpuscular Hemoglobin Concent 33g/dL (31-37) 34g/dL (31-37) Red Cell Distribution Width 15.9% (11.5-14.5) 16.7% (11.5-14.5) Platelet Count 274x10^3/uL (140-400) 275x10^3/uL (140-400) Neutrophils (%) (Auto) 67% (31-73) 53% (31-73) Lymphocytes (%) (Auto) 21% (24-48) 31% (24-48) Monocytes (%) (Auto) 8% (0-9) 11% (0-9) Eosinophils (%) (Auto) 3% (0-3) 5% (0-3) Basophils (%) (Auto) 1% (0-3) 1% (0-3) Neutrophils # (Auto) 9.6x10^3uL (1.8-7.7) 5.6x10^3uL (1.8-7.7) Lymphocytes # (Auto) 3.0x10^3/uL (1.0-4.8) 3.3x10^3/uL (1.0-4.8) Monocytes # (Auto) 1.2x10^3/uL (0.0-1.1) 1.1x10^3/uL (0.0-1.1) Eosinophils # (Auto) 0.4x10^3/uL (0.0-0.7) 0.5x10^3/uL (0.0-0.7) Basophils # (Auto) 0.1x10^3/uL (0.0-0.2) 0.1x10^3/uL (0.0-0.2) Prothrombin Time 14.2SEC (11.7-14.0) 15.0SEC (11.7-14.0) Prothromb Time International Ratio 1.2 (0.8-1.1) 1.3 (0.8-1.1) Nasal Screen MRSA (PCR) Negative (Negative) Sodium Level 144mmol/L (136-145) 146mmol/L (136-145) Potassium Level 3.5mmol/L (3.5-5.1) 3.6mmol/L (3.5-5.1) Chloride Level 111mmol/L (98-107) 114mmol/L (98-107) Carbon Dioxide Level 22mmol/L (21-32) 20mmol/L (21-32) Anion Gap 11 (6-14) 12 (6-14) Blood Urea Nitrogen 29mg/dL (8-26) 31mg/dL (8-26) Creatinine 2.0mg/dL (0.7-1.3) 2.6mg/dL (0.7-1.3) Estimated GFR (Cockcroft-Gault) 44.3 32.8 BUN/Creatinine Ratio 15 (6-20) 12 (6-20) Glucose Level 100mg/dL (70-99) 81mg/dL (70-99) Lactic Acid Level 1.0mmol/L (0.4-2.0) Calcium Level 9.3mg/dL (8.5-10.1) 9.1mg/dL (8.5-10.1) Magnesium Level 1.2mg/dL (1.8-2.4) 2.2mg/dL (1.8-2.4) Total Bilirubin 0.6mg/dL (0.2-1.0) 0.3mg/dL (0.2-1.0) Aspartate Amino Transf (AST/SGOT) 17U/L (15-37) 21U/L (15-37) Alanine Aminotransferase (ALT/SGPT) 17U/L (16-63) 16U/L (16-63) Alkaline Phosphatase 93U/L (46-116) 89U/L (46-116) Total Protein 7.9g/dL (6.4-8.2) 7.1g/dL (6.4-8.2) Albumin 2.2g/dL (3.4-5.0) 2.0g/dL (3.4-5.0) Albumin/Globulin Ratio 0.4 (1.0-1.7) 0.4 (1.0-1.7) O2 Saturation 99% (92-99) 98% (92-99) Arterial Blood pH 7.34 (7.35-7.45) 7.30 (7.35-7.45) Arterial Blood pCO2 at Patient Temp 35mmHg (35-46) 36mmHg (35-46) Arterial Blood pO2 at Patient Temp 203mmHg (75-108) 130mmHg (75-108) Arterial Blood HCO3 19mmol/L (21-28) 17mmol/L (21-28) Arterial Blood Base Excess -7mmol/L (-3-3) -9mmol/L (-3-3) FiO2 50 40 Test 09/12/16 00:12 09/12/16 06:35 09/12/16 06:40 09/12/16 08:15 Glucose (Fingerstick) 94mg/dL (70-99) 100mg/dL (70-99) White Blood Count 14.0x10^3/uL (4.0-11.0) Red Blood Count 2.82x10^6/uL (4.30-5.70) Hemoglobin 8.2g/dL (13.0-17.5) Hematocrit 25.7% (39.0-53.0) Mean Corpuscular Volume 91fL (79-100) Mean Corpuscular Hemoglobin 29pg (25-35) Mean Corpuscular Hemoglobin Concent 32g/dL (31-37) Red Cell Distribution Width 16.6% (11.5-14.5) Platelet Count 262x10^3/uL (140-400) Neutrophils (%) (Auto) 67% (31-73) Lymphocytes (%) (Auto) 21% (24-48) Monocytes (%) (Auto) 12% (0-9) Eosinophils (%) (Auto) 0% (0-3) Basophils (%) (Auto) 1% (0-3) Neutrophils # (Auto) 9.3x10^3uL (1.8-7.7) Lymphocytes # (Auto) 2.9x10^3/uL (1.0-4.8) Monocytes # (Auto) 1.7x10^3/uL (0.0-1.1) Eosinophils # (Auto) 0.0x10^3/uL (0.0-0.7) Basophils # (Auto) 0.1x10^3/uL (0.0-0.2) Sodium Level 143mmol/L (136-145) Potassium Level 4.1mmol/L (3.5-5.1) Chloride Level 113mmol/L (98-107) Carbon Dioxide Level 18mmol/L (21-32) Anion Gap 12 (6-14) Blood Urea Nitrogen 40mg/dL (8-26) Creatinine 3.1mg/dL (0.7-1.3) Estimated GFR (Cockcroft-Gault) 26.7 BUN/Creatinine Ratio 13 (6-20) Glucose Level 104mg/dL (70-99) Calcium Level 9.0mg/dL (8.5-10.1) Phosphorus Level 3.8mg/dL (2.6-4.7) Magnesium Level 2.0mg/dL (1.8-2.4) Total Bilirubin 0.2mg/dL (0.2-1.0) Aspartate Amino Transf (AST/SGOT) 22U/L (15-37) Alanine Aminotransferase (ALT/SGPT) 14U/L (16-63) Alkaline Phosphatase 84U/L (46-116) Total Protein 6.4g/dL (6.4-8.2) Albumin 1.8g/dL (3.4-5.0) Albumin/Globulin Ratio 0.4 (1.0-1.7) Triglycerides Level 160mg/dL (0-150) O2 Saturation 98% (92-99) Arterial Blood pH 7.33 (7.35-7.45) Arterial Blood pCO2 at Patient Temp 32mmHg (35-46) Arterial Blood pO2 at Patient Temp 132mmHg (75-108) Arterial Blood HCO3 16mmol/L (21-28) Arterial Blood Base Excess -9mmol/L (-3-3) FiO2 40 Laboratory Tests Test 09/11/16 16:15 09/12/16 00:12 09/12/16 06:35 09/12/16 06:40 O2 Saturation 98% (92-99) Arterial Blood pH 7.30 (7.35-7.45) Arterial Blood pCO2 at Patient Temp 36mmHg (35-46) Arterial Blood pO2 at Patient Temp 130mmHg (75-108) Arterial Blood HCO3 17mmol/L (21-28) Arterial Blood Base Excess -9mmol/L (-3-3) FiO2 40 Glucose (Fingerstick) 94mg/dL (70-99) 100mg/dL (70-99) White Blood Count 14.0x10^3/uL (4.0-11.0) Red Blood Count 2.82x10^6/uL (4.30-5.70) Hemoglobin 8.2g/dL (13.0-17.5) Hematocrit 25.7% (39.0-53.0) Mean Corpuscular Volume 91fL (79-100) Mean Corpuscular Hemoglobin 29pg (25-35) Mean Corpuscular Hemoglobin Concent 32g/dL (31-37) Red Cell Distribution Width 16.6% (11.5-14.5) Platelet Count 262x10^3/uL (140-400) Neutrophils (%) (Auto) 67% (31-73) Lymphocytes (%) (Auto) 21% (24-48) Monocytes (%) (Auto) 12% (0-9) Eosinophils (%) (Auto) 0% (0-3) Basophils (%) (Auto) 1% (0-3) Neutrophils # (Auto) 9.3x10^3uL (1.8-7.7) Lymphocytes # (Auto) 2.9x10^3/uL (1.0-4.8) Monocytes # (Auto) 1.7x10^3/uL (0.0-1.1) Eosinophils # (Auto) 0.0x10^3/uL (0.0-0.7) Basophils # (Auto) 0.1x10^3/uL (0.0-0.2) Sodium Level 143mmol/L (136-145) Potassium Level 4.1mmol/L (3.5-5.1) Chloride Level 113mmol/L (98-107) Carbon Dioxide Level 18mmol/L (21-32) Anion Gap 12 (6-14) Blood Urea Nitrogen 40mg/dL (8-26) Creatinine 3.1mg/dL (0.7-1.3) Estimated GFR (Cockcroft-Gault) 26.7 BUN/Creatinine Ratio 13 (6-20) Glucose Level 104mg/dL (70-99) Calcium Level 9.0mg/dL (8.5-10.1) Phosphorus Level 3.8mg/dL (2.6-4.7) Magnesium Level 2.0mg/dL (1.8-2.4) Total Bilirubin 0.2mg/dL (0.2-1.0) Aspartate Amino Transf (AST/SGOT) 22U/L (15-37) Alanine Aminotransferase (ALT/SGPT) 14U/L (16-63) Alkaline Phosphatase 84U/L (46-116) Total Protein 6.4g/dL (6.4-8.2) Albumin 1.8g/dL (3.4-5.0) Albumin/Globulin Ratio 0.4 (1.0-1.7) Triglycerides Level 160mg/dL (0-150) Test 09/12/16 08:15 O2 Saturation 98% (92-99) Arterial Blood pH 7.33 (7.35-7.45) Arterial Blood pCO2 at Patient Temp 32mmHg (35-46) Arterial Blood pO2 at Patient Temp 132mmHg (75-108) Arterial Blood HCO3 16mmol/L (21-28) Arterial Blood Base Excess -9mmol/L (-3-3) FiO2 40 Images Images COMPARISON: 09/10/2016. FINDINGS: A frontal view of the chest is obtained. A tracheostomy appliance projects in expected position. A nasogastric tube has its tip in the stomach. A right internal jugular central venous catheter has its tip in the right atrium. There are changes of coronary artery bypass grafting. Mild atelectasis has developed along the right minor fissure. The inspiration is small. There is no pneumothorax or pleural effusion. The heart is mildly enlarged. IMPRESSION: 1. Mild cardiomegaly. CASIE GOMEZ MD Sep 12, 2016 09:34
--- NOTE | 2016-09-12 09:41 | PDOC ---
G I PROGRESS NOTE Subjective Persistent vegetative state. Physical Exam Lungs clear. RRR Abdomen soft, not distended. No bowel sounds yet. Review of Relevant I have reviewed the following items tiny (where applicable) has been applied. Labs Laboratory Tests Test 09/10/16 14:45 09/10/16 16:25 09/11/16 05:45 09/11/16 16:15 White Blood Count 14.3x10^3/uL (4.0-11.0) 10.6x10^3/uL (4.0-11.0) Red Blood Count 3.19x10^6/uL (4.30-5.70) 2.83x10^6/uL (4.30-5.70) Hemoglobin 9.4g/dL (13.0-17.5) 8.5g/dL (13.0-17.5) Hematocrit 28.6% (39.0-53.0) 25.1% (39.0-53.0) Mean Corpuscular Volume 90fL (79-100) 89fL (79-100) Mean Corpuscular Hemoglobin 30pg (25-35) 30pg (25-35) Mean Corpuscular Hemoglobin Concent 33g/dL (31-37) 34g/dL (31-37) Red Cell Distribution Width 15.9% (11.5-14.5) 16.7% (11.5-14.5) Platelet Count 274x10^3/uL (140-400) 275x10^3/uL (140-400) Neutrophils (%) (Auto) 67% (31-73) 53% (31-73) Lymphocytes (%) (Auto) 21% (24-48) 31% (24-48) Monocytes (%) (Auto) 8% (0-9) 11% (0-9) Eosinophils (%) (Auto) 3% (0-3) 5% (0-3) Basophils (%) (Auto) 1% (0-3) 1% (0-3) Neutrophils # (Auto) 9.6x10^3uL (1.8-7.7) 5.6x10^3uL (1.8-7.7) Lymphocytes # (Auto) 3.0x10^3/uL (1.0-4.8) 3.3x10^3/uL (1.0-4.8) Monocytes # (Auto) 1.2x10^3/uL (0.0-1.1) 1.1x10^3/uL (0.0-1.1) Eosinophils # (Auto) 0.4x10^3/uL (0.0-0.7) 0.5x10^3/uL (0.0-0.7) Basophils # (Auto) 0.1x10^3/uL (0.0-0.2) 0.1x10^3/uL (0.0-0.2) Prothrombin Time 14.2SEC (11.7-14.0) 15.0SEC (11.7-14.0) Prothromb Time International Ratio 1.2 (0.8-1.1) 1.3 (0.8-1.1) Nasal Screen MRSA (PCR) Negative (Negative) Sodium Level 144mmol/L (136-145) 146mmol/L (136-145) Potassium Level 3.5mmol/L (3.5-5.1) 3.6mmol/L (3.5-5.1) Chloride Level 111mmol/L (98-107) 114mmol/L (98-107) Carbon Dioxide Level 22mmol/L (21-32) 20mmol/L (21-32) Anion Gap 11 (6-14) 12 (6-14) Blood Urea Nitrogen 29mg/dL (8-26) 31mg/dL (8-26) Creatinine 2.0mg/dL (0.7-1.3) 2.6mg/dL (0.7-1.3) Estimated GFR (Cockcroft-Gault) 44.3 32.8 BUN/Creatinine Ratio 15 (6-20) 12 (6-20) Glucose Level 100mg/dL (70-99) 81mg/dL (70-99) Lactic Acid Level 1.0mmol/L (0.4-2.0) Calcium Level 9.3mg/dL (8.5-10.1) 9.1mg/dL (8.5-10.1) Magnesium Level 1.2mg/dL (1.8-2.4) 2.2mg/dL (1.8-2.4) Total Bilirubin 0.6mg/dL (0.2-1.0) 0.3mg/dL (0.2-1.0) Aspartate Amino Transf (AST/SGOT) 17U/L (15-37) 21U/L (15-37) Alanine Aminotransferase (ALT/SGPT) 17U/L (16-63) 16U/L (16-63) Alkaline Phosphatase 93U/L (46-116) 89U/L (46-116) Total Protein 7.9g/dL (6.4-8.2) 7.1g/dL (6.4-8.2) Albumin 2.2g/dL (3.4-5.0) 2.0g/dL (3.4-5.0) Albumin/Globulin Ratio 0.4 (1.0-1.7) 0.4 (1.0-1.7) O2 Saturation 99% (92-99) 98% (92-99) Arterial Blood pH 7.34 (7.35-7.45) 7.30 (7.35-7.45) Arterial Blood pCO2 at Patient Temp 35mmHg (35-46) 36mmHg (35-46) Arterial Blood pO2 at Patient Temp 203mmHg (75-108) 130mmHg (75-108) Arterial Blood HCO3 19mmol/L (21-28) 17mmol/L (21-28) Arterial Blood Base Excess -7mmol/L (-3-3) -9mmol/L (-3-3) FiO2 50 40 Test 09/12/16 00:12 09/12/16 06:35 09/12/16 06:40 09/12/16 08:15 Glucose (Fingerstick) 94mg/dL (70-99) 100mg/dL (70-99) White Blood Count 14.0x10^3/uL (4.0-11.0) Red Blood Count 2.82x10^6/uL (4.30-5.70) Hemoglobin 8.2g/dL (13.0-17.5) Hematocrit 25.7% (39.0-53.0) Mean Corpuscular Volume 91fL (79-100) Mean Corpuscular Hemoglobin 29pg (25-35) Mean Corpuscular Hemoglobin Concent 32g/dL (31-37) Red Cell Distribution Width 16.6% (11.5-14.5) Platelet Count 262x10^3/uL (140-400) Neutrophils (%) (Auto) 67% (31-73) Lymphocytes (%) (Auto) 21% (24-48) Monocytes (%) (Auto) 12% (0-9) Eosinophils (%) (Auto) 0% (0-3) Basophils (%) (Auto) 1% (0-3) Neutrophils # (Auto) 9.3x10^3uL (1.8-7.7) Lymphocytes # (Auto) 2.9x10^3/uL (1.0-4.8) Monocytes # (Auto) 1.7x10^3/uL (0.0-1.1) Eosinophils # (Auto) 0.0x10^3/uL (0.0-0.7) Basophils # (Auto) 0.1x10^3/uL (0.0-0.2) Sodium Level 143mmol/L (136-145) Potassium Level 4.1mmol/L (3.5-5.1) Chloride Level 113mmol/L (98-107) Carbon Dioxide Level 18mmol/L (21-32) Anion Gap 12 (6-14) Blood Urea Nitrogen 40mg/dL (8-26) Creatinine 3.1mg/dL (0.7-1.3) Estimated GFR (Cockcroft-Gault) 26.7 BUN/Creatinine Ratio 13 (6-20) Glucose Level 104mg/dL (70-99) Calcium Level 9.0mg/dL (8.5-10.1) Phosphorus Level 3.8mg/dL (2.6-4.7) Magnesium Level 2.0mg/dL (1.8-2.4) Total Bilirubin 0.2mg/dL (0.2-1.0) Aspartate Amino Transf (AST/SGOT) 22U/L (15-37) Alanine Aminotransferase (ALT/SGPT) 14U/L (16-63) Alkaline Phosphatase 84U/L (46-116) Total Protein 6.4g/dL (6.4-8.2) Albumin 1.8g/dL (3.4-5.0) Albumin/Globulin Ratio 0.4 (1.0-1.7) Triglycerides Level 160mg/dL (0-150) O2 Saturation 98% (92-99) Arterial Blood pH 7.33 (7.35-7.45) Arterial Blood pCO2 at Patient Temp 32mmHg (35-46) Arterial Blood pO2 at Patient Temp 132mmHg (75-108) Arterial Blood HCO3 16mmol/L (21-28) Arterial Blood Base Excess -9mmol/L (-3-3) FiO2 40 Laboratory Tests Test 09/11/16 16:15 09/12/16 00:12 09/12/16 06:35 09/12/16 06:40 O2 Saturation 98% (92-99) Arterial Blood pH 7.30 (7.35-7.45) Arterial Blood pCO2 at Patient Temp 36mmHg (35-46) Arterial Blood pO2 at Patient Temp 130mmHg (75-108) Arterial Blood HCO3 17mmol/L (21-28) Arterial Blood Base Excess -9mmol/L (-3-3) FiO2 40 Glucose (Fingerstick) 94mg/dL (70-99) 100mg/dL (70-99) White Blood Count 14.0x10^3/uL (4.0-11.0) Red Blood Count 2.82x10^6/uL (4.30-5.70) Hemoglobin 8.2g/dL (13.0-17.5) Hematocrit 25.7% (39.0-53.0) Mean Corpuscular Volume 91fL (79-100) Mean Corpuscular Hemoglobin 29pg (25-35) Mean Corpuscular Hemoglobin Concent 32g/dL (31-37) Red Cell Distribution Width 16.6% (11.5-14.5) Platelet Count 262x10^3/uL (140-400) Neutrophils (%) (Auto) 67% (31-73) Lymphocytes (%) (Auto) 21% (24-48) Monocytes (%) (Auto) 12% (0-9) Eosinophils (%) (Auto) 0% (0-3) Basophils (%) (Auto) 1% (0-3) Neutrophils # (Auto) 9.3x10^3uL (1.8-7.7) Lymphocytes # (Auto) 2.9x10^3/uL (1.0-4.8) Monocytes # (Auto) 1.7x10^3/uL (0.0-1.1) Eosinophils # (Auto) 0.0x10^3/uL (0.0-0.7) Basophils # (Auto) 0.1x10^3/uL (0.0-0.2) Sodium Level 143mmol/L (136-145) Potassium Level 4.1mmol/L (3.5-5.1) Chloride Level 113mmol/L (98-107) Carbon Dioxide Level 18mmol/L (21-32) Anion Gap 12 (6-14) Blood Urea Nitrogen 40mg/dL (8-26) Creatinine 3.1mg/dL (0.7-1.3) Estimated GFR (Cockcroft-Gault) 26.7 BUN/Creatinine Ratio 13 (6-20) Glucose Level 104mg/dL (70-99) Calcium Level 9.0mg/dL (8.5-10.1) Phosphorus Level 3.8mg/dL (2.6-4.7) Magnesium Level 2.0mg/dL (1.8-2.4) Total Bilirubin 0.2mg/dL (0.2-1.0) Aspartate Amino Transf (AST/SGOT) 22U/L (15-37) Alanine Aminotransferase (ALT/SGPT) 14U/L (16-63) Alkaline Phosphatase 84U/L (46-116) Total Protein 6.4g/dL (6.4-8.2) Albumin 1.8g/dL (3.4-5.0) Albumin/Globulin Ratio 0.4 (1.0-1.7) Triglycerides Level 160mg/dL (0-150) Test 09/12/16 08:15 O2 Saturation 98% (92-99) Arterial Blood pH 7.33 (7.35-7.45) Arterial Blood pCO2 at Patient Temp 32mmHg (35-46) Arterial Blood pO2 at Patient Temp 132mmHg (75-108) Arterial Blood HCO3 16mmol/L (21-28) Arterial Blood Base Excess -9mmol/L (-3-3) FiO2 40 Microbiology 09/10/16 Blood Culture - Preliminary, Resulted NO GROWTH AFTER 1 DAY Path pending. Medications Current Medications Propofol (Diprivan) 100 ml @ As Directed STK-MED ONCE IV ; Start 09/10/16 at 14: 46; Stop 09/10/16 at 14:47; Status DC Pantoprazole Sodium (Protonix Vial) 40 mg [id number] IVP Last administered on 06:00; Start 09/10/16 at 18:00 Metoprolol Tartrate (Lopressor) 5 mg Q6HRS IVP Last administered on 09/12/16 06 :07; Start 09/10/16 at 18:00 Hydralazine HCl (Apresoline) 10 mg PRN Q4HRS PRN IVP ELEVATED BP, SEE COMMENTS ; Start 09/10/16 at 16:15; Stop 09/11/16 at 17:54; Status DC Sodium Bicarbonate 50 meq 50 meq 1X ONCE IV Last administered on 09/10/16 18: 25; Start 09/10/16 at 18:00; Stop 09/10/16 at 18:01; Status DC Potassium Chloride/Sodium Chloride 1,000 ml @ 150 mls/hr Q6H40M IV Last administered on 09/11/16 06:07; Start 09/10/16 at 20:00; Stop 09/11/16 at 08:03; Status DC Magnesium Sulfate/ Dextrose 100 ml @ 25 mls/hr 1X ONCE IV Last administered on 09/10/16 20:31; Start 09/10/16 at 20:00; Stop 09/10/16 at 23:59; Status DC Micafungin Sodium 100 mg/Dextrose 100 ml @ 100 mls/hr Q24H IV Last administered on 09/11/16 19:38; Start 09/10/16 at 20:00 Propofol (Diprivan) 100 ml @ 0 mls/hr CONT PRN IV SEE I/O RECORD Last administered on 09/12/16 07:28; Start 09/10/16 at 20:00 Hydralazine HCl (Apresoline) 10 mg Q6HRS IVP Last administered on 09/12/16 04: 15; Start 09/11/16 at 00:00 Fentanyl Citrate (Fentanyl 2ml Vial) 25 mcg PRN Q6HRS PRN IV SEVERE PAIN; Start 09/10/16 at 20:45 Lorazepam 0.5 mg 0.5 mg PRN Q6HRS PRN IV ANXIETY / AGITATION; Start 09/10/16 at 20:45 Erythromycin Lactobionate/ Sodium Chloride (Erythrocin/Iv Sodium Chloride 0.9% 100ml) 100 ml @ 100 mls/hr Q6HRS IV Last administered on 09/12/16 06:03; Start 09/11/16 at 00:00 Ondansetron HCl (Zofran) 4 mg PRN Q8HRS PRN IV NAUSEA/VOMITING; Start 09/10/16 at 20:45 Acetaminophen (Tylenol) 650 mg PRN Q6HRS PRN PEG MILD PAIN / TEMP; Start at 20:45 Amlodipine Besylate (Norvasc) 5 mg DAILY PO ; Start 09/11/16 at 09:00; Stop at 09:00; Status DC Metoclopramide HCl (Reglan) 10 mg PRN Q8HRS PRN IV NAUSEA/VOMITING; Start at 20:45; Stop 09/11/16 at 06:00; Status DC Miconazole Nitrate (Monistat-Derm) 1 rk BID TP ; Start 09/10/16 at 21:00; Stop 09/10/16 at 21:24; Status DC Sodium Chloride (Normal Saline Flush 3ml) 3 ml QSHIFT PRN IV AFTER MEDS AND BLOOD DRAWS; Start 09/10/16 at 20:45 Lacosamide (Vimpat) 100 mg DAILY10 PO ; Start 09/11/16 at 10:00; Stop 09/11/16 at 10:00; Status DC Amlodipine Besylate (Norvasc) 5 mg DAILY PEG ; Start 09/11/16 at 09:00 Lacosamide (Vimpat) 100 mg DAILY10 PEG ; Start 09/11/16 at 10:00; Stop 09/11/16 at 10:00; Status DC Albuterol/ Ipratropium (Duoneb) 3 ml RTQID NEB Last administered on 09/12/16 08 :20; Start 09/11/16 at 08:00 Amiodarone HCl 200 mg 200 mg DAILY PEG ; Start 09/11/16 at 09:00; Stop 09/11/16 at 17:54; Status DC Cefepime HCl/ Sodium Chloride (Maxipime/Iv Sodium Chloride 0.9% 100ml) 100 ml @ 200 mls/hr Q12HR IV Last administered on 09/11/16 21:13; Start 09/10/16 at 22: 00 Alteplase, Recombinant (Cathflo) 2 mg 1X ONCE INT CAT Last administered on 09/10 21:48; Start 09/10/16 at 22:00; Stop 09/10/16 at 22:01; Status DC Miconazole Nitrate 1 rk 1 rk BID TP Last administered on 09/11/16 21:14; Start 09/11/16 at 09:00 Cefazolin Sodium/ Dextrose 50 ml @ 100 mls/hr PREOP PRN PRN IV PREOP; Start at 07:00; Stop 09/12/16 at 06:59; Status DC Sodium Chloride 1,000 ml @ 1,000 mls/hr 1X ONCE IV Last administered on 02:22; Start 09/11/16 at 02:30; Stop 09/11/16 at 03:29; Status DC Sodium Chloride (Iv Sodium Chloride 0.9% 500ml Bag) 500 ml @ 500 mls/hr 1X ONCE IV Last administered on 09/11/16 01:00; Start 09/11/16 at 01:00; Stop at 02:21; Status DC Metoclopramide HCl (Reglan) 10 mg Q8HRS IV Last administered on 09/12/16 05:59 ; Start 09/11/16 at 06:00 Dexamethasone Sodium Phosphate (Decadron) 20 mg STK-MED ONCE .ROUTE ; Start 09/11 at 07:36; Stop 09/11/16 at 07:37; Status DC Ondansetron HCl 4 mg 4 mg STK-MED ONCE .ROUTE ; Start 09/11/16 at 07:36; Stop 09/11/16 at 07:37; Status DC Propofol (Diprivan) 20 ml @ As Directed STK-MED ONCE IV ; Start 09/11/16 at 07:36 ; Stop 09/11/16 at 07:37; Status DC Fentanyl Citrate (Fentanyl 2ml Vial) 100 mcg STK-MED ONCE .ROUTE ; Start at 07:37; Stop 09/11/16 at 07:38; Status DC Rocuronium [place] (Zemuron) 50 mg STK-MED ONCE .ROUTE ; Start 09/11/16 at 07:37 ; Stop 09/11/16 at 07:38; Status DC Desflurane 60 ml 60 ml STK-MED ONCE IH ; Start 09/11/16 at 07:37; Stop 09/11/16 at 07:38; Status DC Cefazolin Sodium/ Dextrose 50 ml @ 100 mls/hr 1X PREOP IV Last administered on 09/11/16 08:48; Start 09/11/16 at 08:00 Lacosamide/Sodium Chloride (Vimpat/Iv Sodium Chloride 0.9% 50ml) 60 ml @ 120 mls/hr DAILY10 IV Last administered on 09/11/16 11:23; Start 09/11/16 at 10:00 Propofol (Diprivan) 1,000 mg STK-MED ONCE IV ; Start 09/10/16 at 14:46; Stop 09/11 at 08:09; Status DC Ephedrine Sulfate 50 mg STK-MED ONCE IV ; Start 09/11/16 at 08:27; Stop 09/11/16 at 08:28; Status DC Phenylephrine HCl 1 mg STK-MED ONCE IV ; Start 09/11/16 at 08:34; Stop 09/11/16 at 08:35; Status DC Bupivacaine HCl/ Epinephrine Bitart (Sensorcain-Mpf Epi 0.5%-1:[id number]) 30 ml STK -MED ONCE INJ Last administered on 09/11/16 08:32; Start 09/11/16 at 08:32; Stop 09/11/16 at 08:48; Status DC Morphine Sulfate 10 mg STK-MED ONCE .ROUTE ; Start 09/11/16 at 09:02; Stop at 09:03; Status DC Midazolam HCl (Versed) 2 mg STK-MED ONCE .ROUTE ; Start 09/11/16 at 09:03; Stop 09/11/16 at 09:04; Status DC Enoxaparin Sodium (Lovenox 40mg Syringe) 40 mg Q24H SQ ; Start 09/11/16 at 11:00 Sodium Chloride 3 ml 3 ml QSHIFT PRN IV AFTER MEDS AND BLOOD DRAWS; Start at 09:30 Sodium Chloride/ Potassium Chloride/ Potassium Phosphate/ Magnesium Sulfate/ Calcium Gluconate/ Multivitamins/ Chromium/Copper/ Manganese/Seleni/ Zn/Total Parenteral Nutrition/Amino Acids/Dextrose (Sodium Chloride/ Potassium Phosphate / Infuvite Adult/ Multitrace-5 Co... 1,512 ml @ 63 mls/hr TPN CONT IV ; Start 09/11/16 at 22:00; Stop 09/11/16 at 22:00; Status DC Info 1 each PRN DAILY PRN MC SEE COMMENTS Last administered on 09/11/16 16:08; Start 09/11/16 at 16:00; Stop 09/11/16 at 17:55; Status DC Fentanyl Citrate 50 mcg 50 mcg PRN Q2HR PRN IV PAIN Last administered on 08:02; Start 09/11/16 at 17:15 Potassium Chloride 30 meq/ Sodium Chloride 1,015 ml @ 40 mls/hr Q24H IV ; Start 09/11/16 at 18:00 Potassium Chloride/Sodium Chloride (Iv Sodium Chloride 0.45%) 1,015 ml @ 40 mls /hr Q24H IV ; Start 09/11/16 at 18:00; Status Cancel Info 1 each PRN DAILY PRN MC SEE COMMENTS; Start 09/11/16 at 19:15 Sodium Bicarbonate 100 meq 100 meq 1X ONCE IV Last administered on 09/11/16 19 :37; Start 09/11/16 at 19:30; Stop 09/11/16 at 19:31; Status DC Sodium Chloride/ Potassium Chloride/ Potassium Phosphate/ Magnesium Sulfate/ Calcium Gluconate/ Multivitamins/ Chromium/Copper/ Manganese/Seleni/ Zn/Total Parenteral Nutrition/Amino Acids/Dextrose (Sodium Chloride/ Potassium Phosphate / Infuvite Adult/ Multitrace-5 Co... 1,512 ml @ 63 mls/hr TPN CONT IV Last administered on 09/11/16 22:18; Start 09/11/16 at 22:00; Stop 09/12/16 at 21:59 Insulin Aspart (Novolog) Q6HRS SQ ; Start 09/12/16 at 12:00 Metronidazole (FLAGYL 500Mmg PREMIX) 500 mg STK-MED ONCE IV ; Start 09/11/16 at 09:20; Stop 09/12/16 at 08:54; Status DC Active Scripts Active Reported Amiodarone Hcl 200 Mg Tablet 1 Tab PEG DAILY Docusate Sodium 100 Mg Capsule 100 Mg PEG BID Miconazole Nitrate 130 Gm Aero.powd 130 Gm TP PRN PRN Reglan (Metoclopramide Hcl) 10 Mg Tablet 10 Mg IV Q8HRS Amlodipine Besylate 10 Mg Tablet 10 Mg PEG DAILY Acetaminophen 160 Mg/5 Ml Solution 650 Mg PEG PRN Q6HRS PRN Ondansetron Odt (Ondansetron) 4 Mg Tab.rapdis 4 Mg PEG Q8HRS PRN Ondansetron Hcl 4 Mg/2 Ml Syr (Ondansetron Hcl/Pf) 4 Mg/2 Ml Disp.syrin 4 Mg IV PRN Q8HRS PRN Duoneb 0.5-3(2.5) Mg/3 Ml (Albuterol/Ipratropium) 3 Ml Ampul.neb 3 Ml NEB BID Pantoprazole Sodium 40 Mg Tablet.dr 40 Mg IV DAILY Cefepime Hcl 2 Gm Vial 2 Gm IV Q12HR Erythrocin Lactobionate (Erythromycin Lactobionate) 500 Mg Vial 125 Mg IV Q6HRS Eraxis (Water Diluent) (Anidulafungin) 100 Mg Vial 100 Mg IV DAILY Lorazepam 0.5 Mg Tablet 0.5 Mg IV PRN Q6HRS PRN FENTANYL 25mcg/hr (Fentanyl) 1 Each Patch.td72 25 Mcg IV PRN Q6HRS PRN Hydralazine Hcl 10 Mg Tablet 10 Mg IV Q6HRS Vimpat (Lacosamide) 1 Each Tab.ds.pk 100 Mg PO DAILY Vitals/I & O Vital Sign - Last 24 Hours 09/11/16 09/11/16 09/11/16 09/11/16 09:40 09:42 09:55 10:10 Temp 97.4 97.4 Pulse 77 80 83 Resp 15 16 16 B/P 146/78 145/78 151/80 Pulse Ox 100 100 100 100 O2 Delivery Ventilator Ventilator Ventilator Ventilator 09/11/16 09/11/16 09/11/16 09/11/16 10:25 10:30 11:00 11:59 Temp 97.1 97.5 97.1 97.5 Pulse 86 88 86 Resp 16 15 16 B/P 159/84 121/74 146/77 Pulse Ox 99 100 99 100 O2 Delivery Ventilator Ventilator Ventilator Ventilator 09/11/16 09/11/16 09/11/16 09/11/16 12:00 12:00 13:00 13:42 Pulse 84 88 Resp 18 16 B/P 126/71 168/88 Pulse Ox 99 100 98 O2 Delivery Mechanical Ventilator Ventilator Ventilator Ventilator 09/11/16 09/11/16 09/11/16 09/11/16 14:00 15:00 15:10 16:00 Pulse 90 87 Resp 22 16 B/P 188/96 154/74 Pulse Ox 100 100 98 O2 Delivery Ventilator Ventilator Ventilator Mechanical Ventilator 09/11/16 09/11/16 09/11/16 09/11/16 16:14 16:30 17:00 17:28 Temp 98.0 98.0 Pulse 81 81 80 Resp 16 B/P 168/88 117/66 115/75 Pulse Ox 100 100 O2 Delivery Ventilator Ventilator 09/11/16 09/11/16 09/11/16 09/11/16 17:30 18:00 19:00 20:00 Pulse 81 77 79 Resp 16 16 B/P 115/84 103/55 103/56 Pulse Ox 100 100 100 O2 Delivery Ventilator Ventilator 09/11/16 09/11/16 09/11/16 09/11/16 20:00 20:00 21:00 21:13 Temp 97.7 97.7 Pulse 92 92 Resp 16 16 16 B/P 167/83 146/77 Pulse Ox 100 100 100 O2 Delivery Ventilator Mechanical Ventilator Ventilator Ventilator 09/11/16 09/11/16 09/11/16 09/11/16 21:25 22:00 23:00 23:35 Pulse 83 88 Resp 16 16 B/P 138/79 139/78 Pulse Ox 100 100 100 100 O2 Delivery Ventilator Ventilator Ventilator Ventilator 09/11/16 09/11/16 09/12/16 09/12/16 23:59 23:59 00:00 01:00 Temp 98.0 98.0 Pulse 75 75 76 Resp 16 16 B/P 102/61 102/61 106/64 Pulse Ox 100 100 O2 Delivery Mechanical Ventilator Ventilator Ventilator 09/12/16 09/12/16 09/12/16 09/12/16 01:07 01:20 02:00 02:21 Pulse 76 84 Resp 16 16 B/P 116/63 164/90 Pulse Ox 100 100 100 O2 Delivery Ventilator Ventilator Ventilator 09/12/16 09/12/16 09/12/16 09/12/16 02:50 03:00 03:40 04:00 Pulse 82 Resp 16 16 B/P 160/89 Pulse Ox 100 100 100 O2 Delivery Ventilator Ventilator Mechanical Ventilator 09/12/16 09/12/16 09/12/16 09/12/16 04:00 04:15 05:00 05:30 Temp 98.1 98.1 Pulse 83 83 85 Resp 16 16 B/P 160/85 160/85 136/66 Pulse Ox 100 100 100 O2 Delivery Ventilator Ventilator Ventilator 09/12/16 09/12/16 09/12/16 09/12/16 06:00 06:07 07:00 08:02 Pulse 84 84 78 Resp 16 B/P 138/71 138/71 151/82 Pulse Ox 100 100 O2 Delivery Ventilator Ventilator Room Air 09/12/16 09/12/16 08:20 08:44 Pulse Ox 100 O2 Delivery Ventilator Room Air Intake and Output 09/11/16 09/11/16 09/12/16 15:00 23:00 07:00 Intake Total 210 ml 1212 ml 1018 ml Output Total 75 ml 1110 ml 650 ml Balance 135 ml 102 ml 368 ml Problem List Problems Medical Problems: (1) Small bowel obstruction Status: Acute Assessment SBO/strictures at lap, path pending. Still with post-op ileus. Plan of Care: Continue current Tx, Mgmt Plan of Care Note Await path. DIDIER OZUNA MD Sep 12, 2016 09:41
[2016-09-12] MEDS ORDERED: DIALYSIS PATIENT. MC PRN (09:45)
--- NOTE | 2016-09-12 09:54 | PDOC ---
PULMONARY PROGRESS NOTES Subjective remains on AC mode s/p exp. lap Vitals Vital Signs Date Time Temp Pulse Resp B/P Pulse Ox O2 Delivery O2 Flow Rate FiO2 09/12/16 08:44 Room Air 09/12/16 08:20 100 09/12/16 07:00 78 16 151/82 09/12/16 04:00 98.1 98.1 Lungs: Other (decrease bs) Cardiovascular: S1 Abdomen: Soft, Other (decrease bs) Extremities: Other (trace edema) Labs Laboratory Tests Test 09/10/16 14:45 09/10/16 16:25 09/11/16 05:45 09/11/16 16:15 White Blood Count 14.3x10^3/uL (4.0-11.0) 10.6x10^3/uL (4.0-11.0) Red Blood Count 3.19x10^6/uL (4.30-5.70) 2.83x10^6/uL (4.30-5.70) Hemoglobin 9.4g/dL (13.0-17.5) 8.5g/dL (13.0-17.5) Hematocrit 28.6% (39.0-53.0) 25.1% (39.0-53.0) Mean Corpuscular Volume 90fL (79-100) 89fL (79-100) Mean Corpuscular Hemoglobin 30pg (25-35) 30pg (25-35) Mean Corpuscular Hemoglobin Concent 33g/dL (31-37) 34g/dL (31-37) Red Cell Distribution Width 15.9% (11.5-14.5) 16.7% (11.5-14.5) Platelet Count 274x10^3/uL (140-400) 275x10^3/uL (140-400) Neutrophils (%) (Auto) 67% (31-73) 53% (31-73) Lymphocytes (%) (Auto) 21% (24-48) 31% (24-48) Monocytes (%) (Auto) 8% (0-9) 11% (0-9) Eosinophils (%) (Auto) 3% (0-3) 5% (0-3) Basophils (%) (Auto) 1% (0-3) 1% (0-3) Neutrophils # (Auto) 9.6x10^3uL (1.8-7.7) 5.6x10^3uL (1.8-7.7) Lymphocytes # (Auto) 3.0x10^3/uL (1.0-4.8) 3.3x10^3/uL (1.0-4.8) Monocytes # (Auto) 1.2x10^3/uL (0.0-1.1) 1.1x10^3/uL (0.0-1.1) Eosinophils # (Auto) 0.4x10^3/uL (0.0-0.7) 0.5x10^3/uL (0.0-0.7) Basophils # (Auto) 0.1x10^3/uL (0.0-0.2) 0.1x10^3/uL (0.0-0.2) Prothrombin Time 14.2SEC (11.7-14.0) 15.0SEC (11.7-14.0) Prothromb Time International Ratio 1.2 (0.8-1.1) 1.3 (0.8-1.1) Nasal Screen MRSA (PCR) Negative (Negative) Sodium Level 144mmol/L (136-145) 146mmol/L (136-145) Potassium Level 3.5mmol/L (3.5-5.1) 3.6mmol/L (3.5-5.1) Chloride Level 111mmol/L (98-107) 114mmol/L (98-107) Carbon Dioxide Level 22mmol/L (21-32) 20mmol/L (21-32) Anion Gap 11 (6-14) 12 (6-14) Blood Urea Nitrogen 29mg/dL (8-26) 31mg/dL (8-26) Creatinine 2.0mg/dL (0.7-1.3) 2.6mg/dL (0.7-1.3) Estimated GFR (Cockcroft-Gault) 44.3 32.8 BUN/Creatinine Ratio 15 (6-20) 12 (6-20) Glucose Level 100mg/dL (70-99) 81mg/dL (70-99) Lactic Acid Level 1.0mmol/L (0.4-2.0) Calcium Level 9.3mg/dL (8.5-10.1) 9.1mg/dL (8.5-10.1) Magnesium Level 1.2mg/dL (1.8-2.4) 2.2mg/dL (1.8-2.4) Total Bilirubin 0.6mg/dL (0.2-1.0) 0.3mg/dL (0.2-1.0) Aspartate Amino Transf (AST/SGOT) 17U/L (15-37) 21U/L (15-37) Alanine Aminotransferase (ALT/SGPT) 17U/L (16-63) 16U/L (16-63) Alkaline Phosphatase 93U/L (46-116) 89U/L (46-116) Total Protein 7.9g/dL (6.4-8.2) 7.1g/dL (6.4-8.2) Albumin 2.2g/dL (3.4-5.0) 2.0g/dL (3.4-5.0) Albumin/Globulin Ratio 0.4 (1.0-1.7) 0.4 (1.0-1.7) O2 Saturation 99% (92-99) 98% (92-99) Arterial Blood pH 7.34 (7.35-7.45) 7.30 (7.35-7.45) Arterial Blood pCO2 at Patient Temp 35mmHg (35-46) 36mmHg (35-46) Arterial Blood pO2 at Patient Temp 203mmHg (75-108) 130mmHg (75-108) Arterial Blood HCO3 19mmol/L (21-28) 17mmol/L (21-28) Arterial Blood Base Excess -7mmol/L (-3-3) -9mmol/L (-3-3) FiO2 50 40 Test 09/12/16 00:12 09/12/16 06:35 09/12/16 06:40 09/12/16 08:15 Glucose (Fingerstick) 94mg/dL (70-99) 100mg/dL (70-99) White Blood Count 14.0x10^3/uL (4.0-11.0) Red Blood Count 2.82x10^6/uL (4.30-5.70) Hemoglobin 8.2g/dL (13.0-17.5) Hematocrit 25.7% (39.0-53.0) Mean Corpuscular Volume 91fL (79-100) Mean Corpuscular Hemoglobin 29pg (25-35) Mean Corpuscular Hemoglobin Concent 32g/dL (31-37) Red Cell Distribution Width 16.6% (11.5-14.5) Platelet Count 262x10^3/uL (140-400) Neutrophils (%) (Auto) 67% (31-73) Lymphocytes (%) (Auto) 21% (24-48) Monocytes (%) (Auto) 12% (0-9) Eosinophils (%) (Auto) 0% (0-3) Basophils (%) (Auto) 1% (0-3) Neutrophils # (Auto) 9.3x10^3uL (1.8-7.7) Lymphocytes # (Auto) 2.9x10^3/uL (1.0-4.8) Monocytes # (Auto) 1.7x10^3/uL (0.0-1.1) Eosinophils # (Auto) 0.0x10^3/uL (0.0-0.7) Basophils # (Auto) 0.1x10^3/uL (0.0-0.2) Sodium Level 143mmol/L (136-145) Potassium Level 4.1mmol/L (3.5-5.1) Chloride Level 113mmol/L (98-107) Carbon Dioxide Level 18mmol/L (21-32) Anion Gap 12 (6-14) Blood Urea Nitrogen 40mg/dL (8-26) Creatinine 3.1mg/dL (0.7-1.3) Estimated GFR (Cockcroft-Gault) 26.7 BUN/Creatinine Ratio 13 (6-20) Glucose Level 104mg/dL (70-99) Calcium Level 9.0mg/dL (8.5-10.1) Phosphorus Level 3.8mg/dL (2.6-4.7) Magnesium Level 2.0mg/dL (1.8-2.4) Total Bilirubin 0.2mg/dL (0.2-1.0) Aspartate Amino Transf (AST/SGOT) 22U/L (15-37) Alanine Aminotransferase (ALT/SGPT) 14U/L (16-63) Alkaline Phosphatase 84U/L (46-116) Total Protein 6.4g/dL (6.4-8.2) Albumin 1.8g/dL (3.4-5.0) Albumin/Globulin Ratio 0.4 (1.0-1.7) Triglycerides Level 160mg/dL (0-150) O2 Saturation 98% (92-99) Arterial Blood pH 7.33 (7.35-7.45) Arterial Blood pCO2 at Patient Temp 32mmHg (35-46) Arterial Blood pO2 at Patient Temp 132mmHg (75-108) Arterial Blood HCO3 16mmol/L (21-28) Arterial Blood Base Excess -9mmol/L (-3-3) FiO2 40 Laboratory Tests Test 09/11/16 16:15 09/12/16 00:12 09/12/16 06:35 09/12/16 06:40 O2 Saturation 98% (92-99) Arterial Blood pH 7.30 (7.35-7.45) Arterial Blood pCO2 at Patient Temp 36mmHg (35-46) Arterial Blood pO2 at Patient Temp 130mmHg (75-108) Arterial Blood HCO3 17mmol/L (21-28) Arterial Blood Base Excess -9mmol/L (-3-3) FiO2 40 Glucose (Fingerstick) 94mg/dL (70-99) 100mg/dL (70-99) White Blood Count 14.0x10^3/uL (4.0-11.0) Red Blood Count 2.82x10^6/uL (4.30-5.70) Hemoglobin 8.2g/dL (13.0-17.5) Hematocrit 25.7% (39.0-53.0) Mean Corpuscular Volume 91fL (79-100) Mean Corpuscular Hemoglobin 29pg (25-35) Mean Corpuscular Hemoglobin Concent 32g/dL (31-37) Red Cell Distribution Width 16.6% (11.5-14.5) Platelet Count 262x10^3/uL (140-400) Neutrophils (%) (Auto) 67% (31-73) Lymphocytes (%) (Auto) 21% (24-48) Monocytes (%) (Auto) 12% (0-9) Eosinophils (%) (Auto) 0% (0-3) Basophils (%) (Auto) 1% (0-3) Neutrophils # (Auto) 9.3x10^3uL (1.8-7.7) Lymphocytes # (Auto) 2.9x10^3/uL (1.0-4.8) Monocytes # (Auto) 1.7x10^3/uL (0.0-1.1) Eosinophils # (Auto) 0.0x10^3/uL (0.0-0.7) Basophils # (Auto) 0.1x10^3/uL (0.0-0.2) Sodium Level 143mmol/L (136-145) Potassium Level 4.1mmol/L (3.5-5.1) Chloride Level 113mmol/L (98-107) Carbon Dioxide Level 18mmol/L (21-32) Anion Gap 12 (6-14) Blood Urea Nitrogen 40mg/dL (8-26) Creatinine 3.1mg/dL (0.7-1.3) Estimated GFR (Cockcroft-Gault) 26.7 BUN/Creatinine Ratio 13 (6-20) Glucose Level 104mg/dL (70-99) Calcium Level 9.0mg/dL (8.5-10.1) Phosphorus Level 3.8mg/dL (2.6-4.7) Magnesium Level 2.0mg/dL (1.8-2.4) Total Bilirubin 0.2mg/dL (0.2-1.0) Aspartate Amino Transf (AST/SGOT) 22U/L (15-37) Alanine Aminotransferase (ALT/SGPT) 14U/L (16-63) Alkaline Phosphatase 84U/L (46-116) Total Protein 6.4g/dL (6.4-8.2) Albumin 1.8g/dL (3.4-5.0) Albumin/Globulin Ratio 0.4 (1.0-1.7) Triglycerides Level 160mg/dL (0-150) Test 09/12/16 08:15 O2 Saturation 98% (92-99) Arterial Blood pH 7.33 (7.35-7.45) Arterial Blood pCO2 at Patient Temp 32mmHg (35-46) Arterial Blood pO2 at Patient Temp 132mmHg (75-108) Arterial Blood HCO3 16mmol/L (21-28) Arterial Blood Base Excess -9mmol/L (-3-3) FiO2 40 Medications Active Scripts Medications Dose Route/Sig Days Date Category Amiodarone Hcl 200 Mg Tablet 1 Tab PEG DAILY 09/11/16 Reported Docusate Sodium 100 Mg Capsule 100 Mg PEG BID 09/11/16 Reported Miconazole Nitrate 130 Gm Aero.powd 130 Gm TP PRN PRN 09/11/16 Reported Reglan (Metoclopramide Hcl) 10 Mg Tablet 10 Mg IV Q8HRS 09/11/16 Reported Amlodipine Besylate 10 Mg Tablet 10 Mg PEG DAILY 09/11/16 Reported Acetaminophen 160 Mg/5 Ml Solution 650 Mg PEG PRN Q6HRS PRN 09/11/16 Reported Ondansetron Odt (Ondansetron) 4 Mg Tab.rapdis 4 Mg PEG Q8HRS PRN 09/11/16 Reported Ondansetron Hcl 4 Mg/2 Ml Syr (Ondansetron Hcl/Pf) 4 Mg/2 Ml Disp.syrin 4 Mg IV PRN Q8HRS PRN 09/11/16 Reported Duoneb 0.5-3(2.5) Mg/3 Ml (Albuterol/Ipratropium) 3 Ml Ampul.neb 3 Ml NEB BID 09/11/16 Reported Pantoprazole Sodium 40 Mg Tablet.dr 40 Mg IV DAILY 09/11/16 Reported Cefepime Hcl 2 Gm Vial 2 Gm IV Q12HR 09/11/16 Reported Erythrocin Lactobionate (Erythromycin Lactobionate) 500 Mg Vial 125 Mg IV Q6HRS 09/11/16 Reported Eraxis (Water Diluent) (Anidulafungin) 100 Mg Vial 100 Mg IV DAILY 09/11/16 Reported Lorazepam 0.5 Mg Tablet 0.5 Mg IV PRN Q6HRS PRN 09/11/16 Reported FENTANYL 25mcg/hr (Fentanyl) 1 Each Patch.td72 25 Mcg IV PRN Q6HRS PRN 09/11/16 Reported Hydralazine Hcl 10 Mg Tablet 10 Mg IV Q6HRS 09/11/16 Reported Vimpat (Lacosamide) 1 Each Tab.ds.pk 100 Mg PO DAILY 08/29/16 Reported Comments CXR stable Impression . 1. Dsncw-ez-obwmary respiratory failure, secondary to suspected sepsis/small-bowel obstruction. AC mode 2. 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 3. History of fungemia and sepsis. 4. Pneumonia. 5. History of congestive heart failure. 6. Recent small-bowel obstruction with early sepsis. 7. History of cardiac arrhythmias on amiodarone. 8. History of left upper extremity deep venous thrombosis. 9. Anemia. Plan . 1. AC mode. will try CPAP and later TS 2. f/u ABGs and make necessary adjustment. 3. Mild sedation and narcotics. 4. Follow Surgical recommendations 5. Infectious disease recommendations 6. Follow cardiology recommendations. 8. Follow renal function. 9. we will do follow up on upper extremity Dopplers. 10. SCDs for Deep venous thrombosis prophylaxis. 11. Enteral nutrition on hold due to small-bowel obstruction. 12. Discussed with RN and RT. and can go back to [facility] REBEL LICONA MD Sep 12, 2016 09:54
--- NOTE | 2016-09-12 10:36 | PDOC ---
Provider Note Provider Note HTN controlled. SR and has not displayed any signs of AFIB or any rhythm ectopies overnight. As I noted AFIB suspicion was likely brief which could have been induced by prior 2016 thoracic aneurysm repair prompting amiodarone treatment Unfortunately, still no cardiac records obtained from [facility]. Pt is scheduled to be transferred back to [facility] today. Recommend continuing metoprolol,mainly for his HTN. If AFIB remains a strong suspicion, then the latter BB should suffice. Defer amiodarone treatment to PCP In addition pt is apparently allergic to ASA, so if again AFIB remains a strong suspicion then OAC/NOAC would be recommend. In regards to this will defer to PCP. SHY LAMA [employer] COORD[employer]ATOR Sep 12, 2016 10:36
[2016-09-12] MEDS: CEFEPIME HCL 2 GM in IV NORMAL SALINE 100ML 100 ML IV SCH ×2 (10:41→20:47)
[2016-09-12] MEDS: MICONAZOLE NITRATE 2% TOPICAL POWDER 85GM JAR. TP SCH ×2 (10:41→20:47)
[2016-09-12] MEDS: LACOSAMIDE 100 MG in IV NORMAL SALINE 50ML 50 ML IV SCH (10:41)
[2016-09-12] MEDS: HEPARIN PF for SUB-Q USE 5,000 UNIT/0.5 ML VIAL. SQ SCH ×2 (10:43→20:49)
[2016-09-12] MEDS: TPN PER PHARMACY MC PRN (11:15)
[2016-09-12] MEDS: INSULIN ASPART 300 UNITS/3 ML INSULN.PEN SQ SCH ×2 (12:00→18:00)
--- NOTE | 2016-09-12 13:50 | PDOC ---
SURGICAL PROGRESS NOTE Subjective Pt resting comfortably Vital Signs Vital Signs Date Time Temp Pulse Resp B/P Pulse Ox O2 Delivery O2 Flow Rate FiO2 09/12/16 12:55 90 120/76 09/12/16 12:16 100 Ventilator 09/12/16 07:00 16 09/12/16 04:00 98.1 98.1 I&O Intake and Output 09/12/16 07:00 Intake Total 2440 ml Output Total 1835 ml Balance 605 ml IV Total 1615 ml Other 825 ml Output Urine Total 835 ml Gastric Drainage Total 1000 ml General: No acute distress Abdomen: Soft, No tenderness Labs Laboratory Tests Test 09/10/16 14:45 09/10/16 16:25 09/11/16 05:45 09/11/16 16:15 White Blood Count 14.3x10^3/uL (4.0-11.0) 10.6x10^3/uL (4.0-11.0) Red Blood Count 3.19x10^6/uL (4.30-5.70) 2.83x10^6/uL (4.30-5.70) Hemoglobin 9.4g/dL (13.0-17.5) 8.5g/dL (13.0-17.5) Hematocrit 28.6% (39.0-53.0) 25.1% (39.0-53.0) Mean Corpuscular Volume 90fL (79-100) 89fL (79-100) Mean Corpuscular Hemoglobin 30pg (25-35) 30pg (25-35) Mean Corpuscular Hemoglobin Concent 33g/dL (31-37) 34g/dL (31-37) Red Cell Distribution Width 15.9% (11.5-14.5) 16.7% (11.5-14.5) Platelet Count 274x10^3/uL (140-400) 275x10^3/uL (140-400) Neutrophils (%) (Auto) 67% (31-73) 53% (31-73) Lymphocytes (%) (Auto) 21% (24-48) 31% (24-48) Monocytes (%) (Auto) 8% (0-9) 11% (0-9) Eosinophils (%) (Auto) 3% (0-3) 5% (0-3) Basophils (%) (Auto) 1% (0-3) 1% (0-3) Neutrophils # (Auto) 9.6x10^3uL (1.8-7.7) 5.6x10^3uL (1.8-7.7) Lymphocytes # (Auto) 3.0x10^3/uL (1.0-4.8) 3.3x10^3/uL (1.0-4.8) Monocytes # (Auto) 1.2x10^3/uL (0.0-1.1) 1.1x10^3/uL (0.0-1.1) Eosinophils # (Auto) 0.4x10^3/uL (0.0-0.7) 0.5x10^3/uL (0.0-0.7) Basophils # (Auto) 0.1x10^3/uL (0.0-0.2) 0.1x10^3/uL (0.0-0.2) Prothrombin Time 14.2SEC (11.7-14.0) 15.0SEC (11.7-14.0) Prothromb Time International Ratio 1.2 (0.8-1.1) 1.3 (0.8-1.1) Nasal Screen MRSA (PCR) Negative (Negative) Sodium Level 144mmol/L (136-145) 146mmol/L (136-145) Potassium Level 3.5mmol/L (3.5-5.1) 3.6mmol/L (3.5-5.1) Chloride Level 111mmol/L (98-107) 114mmol/L (98-107) Carbon Dioxide Level 22mmol/L (21-32) 20mmol/L (21-32) Anion Gap 11 (6-14) 12 (6-14) Blood Urea Nitrogen 29mg/dL (8-26) 31mg/dL (8-26) Creatinine 2.0mg/dL (0.7-1.3) 2.6mg/dL (0.7-1.3) Estimated GFR (Cockcroft-Gault) 44.3 32.8 BUN/Creatinine Ratio 15 (6-20) 12 (6-20) Glucose Level 100mg/dL (70-99) 81mg/dL (70-99) Lactic Acid Level 1.0mmol/L (0.4-2.0) Calcium Level 9.3mg/dL (8.5-10.1) 9.1mg/dL (8.5-10.1) Magnesium Level 1.2mg/dL (1.8-2.4) 2.2mg/dL (1.8-2.4) Total Bilirubin 0.6mg/dL (0.2-1.0) 0.3mg/dL (0.2-1.0) Aspartate Amino Transf (AST/SGOT) 17U/L (15-37) 21U/L (15-37) Alanine Aminotransferase (ALT/SGPT) 17U/L (16-63) 16U/L (16-63) Alkaline Phosphatase 93U/L (46-116) 89U/L (46-116) Total Protein 7.9g/dL (6.4-8.2) 7.1g/dL (6.4-8.2) Albumin 2.2g/dL (3.4-5.0) 2.0g/dL (3.4-5.0) Albumin/Globulin Ratio 0.4 (1.0-1.7) 0.4 (1.0-1.7) O2 Saturation 99% (92-99) 98% (92-99) Arterial Blood pH 7.34 (7.35-7.45) 7.30 (7.35-7.45) Arterial Blood pCO2 at Patient Temp 35mmHg (35-46) 36mmHg (35-46) Arterial Blood pO2 at Patient Temp 203mmHg (75-108) 130mmHg (75-108) Arterial Blood HCO3 19mmol/L (21-28) 17mmol/L (21-28) Arterial Blood Base Excess -7mmol/L (-3-3) -9mmol/L (-3-3) FiO2 50 40 Test 09/12/16 00:12 09/12/16 06:35 09/12/16 06:40 09/12/16 08:15 Glucose (Fingerstick) 94mg/dL (70-99) 100mg/dL (70-99) White Blood Count 14.0x10^3/uL (4.0-11.0) Red Blood Count 2.82x10^6/uL (4.30-5.70) Hemoglobin 8.2g/dL (13.0-17.5) Hematocrit 25.7% (39.0-53.0) Mean Corpuscular Volume 91fL (79-100) Mean Corpuscular Hemoglobin 29pg (25-35) Mean Corpuscular Hemoglobin Concent 32g/dL (31-37) Red Cell Distribution Width 16.6% (11.5-14.5) Platelet Count 262x10^3/uL (140-400) Neutrophils (%) (Auto) 67% (31-73) Lymphocytes (%) (Auto) 21% (24-48) Monocytes (%) (Auto) 12% (0-9) Eosinophils (%) (Auto) 0% (0-3) Basophils (%) (Auto) 1% (0-3) Neutrophils # (Auto) 9.3x10^3uL (1.8-7.7) Lymphocytes # (Auto) 2.9x10^3/uL (1.0-4.8) Monocytes # (Auto) 1.7x10^3/uL (0.0-1.1) Eosinophils # (Auto) 0.0x10^3/uL (0.0-0.7) Basophils # (Auto) 0.1x10^3/uL (0.0-0.2) Sodium Level 143mmol/L (136-145) Potassium Level 4.1mmol/L (3.5-5.1) Chloride Level 113mmol/L (98-107) Carbon Dioxide Level 18mmol/L (21-32) Anion Gap 12 (6-14) Blood Urea Nitrogen 40mg/dL (8-26) Creatinine 3.1mg/dL (0.7-1.3) Estimated GFR (Cockcroft-Gault) 26.7 BUN/Creatinine Ratio 13 (6-20) Glucose Level 104mg/dL (70-99) Calcium Level 9.0mg/dL (8.5-10.1) Phosphorus Level 3.8mg/dL (2.6-4.7) Magnesium Level 2.0mg/dL (1.8-2.4) Total Bilirubin 0.2mg/dL (0.2-1.0) Aspartate Amino Transf (AST/SGOT) 22U/L (15-37) Alanine Aminotransferase (ALT/SGPT) 14U/L (16-63) Alkaline Phosphatase 84U/L (46-116) Total Protein 6.4g/dL (6.4-8.2) Albumin 1.8g/dL (3.4-5.0) Albumin/Globulin Ratio 0.4 (1.0-1.7) Triglycerides Level 160mg/dL (0-150) O2 Saturation 98% (92-99) Arterial Blood pH 7.33 (7.35-7.45) Arterial Blood pCO2 at Patient Temp 32mmHg (35-46) Arterial Blood pO2 at Patient Temp 132mmHg (75-108) Arterial Blood HCO3 16mmol/L (21-28) Arterial Blood Base Excess -9mmol/L (-3-3) FiO2 40 Test 09/12/16 12:52 Glucose (Fingerstick) 100mg/dL (70-99) Laboratory Tests Test 09/11/16 16:15 09/12/16 00:12 09/12/16 06:35 09/12/16 06:40 O2 Saturation 98% (92-99) Arterial Blood pH 7.30 (7.35-7.45) Arterial Blood pCO2 at Patient Temp 36mmHg (35-46) Arterial Blood pO2 at Patient Temp 130mmHg (75-108) Arterial Blood HCO3 17mmol/L (21-28) Arterial Blood Base Excess -9mmol/L (-3-3) FiO2 40 Glucose (Fingerstick) 94mg/dL (70-99) 100mg/dL (70-99) White Blood Count 14.0x10^3/uL (4.0-11.0) Red Blood Count 2.82x10^6/uL (4.30-5.70) Hemoglobin 8.2g/dL (13.0-17.5) Hematocrit 25.7% (39.0-53.0) Mean Corpuscular Volume 91fL (79-100) Mean Corpuscular Hemoglobin 29pg (25-35) Mean Corpuscular Hemoglobin Concent 32g/dL (31-37) Red Cell Distribution Width 16.6% (11.5-14.5) Platelet Count 262x10^3/uL (140-400) Neutrophils (%) (Auto) 67% (31-73) Lymphocytes (%) (Auto) 21% (24-48) Monocytes (%) (Auto) 12% (0-9) Eosinophils (%) (Auto) 0% (0-3) Basophils (%) (Auto) 1% (0-3) Neutrophils # (Auto) 9.3x10^3uL (1.8-7.7) Lymphocytes # (Auto) 2.9x10^3/uL (1.0-4.8) Monocytes # (Auto) 1.7x10^3/uL (0.0-1.1) Eosinophils # (Auto) 0.0x10^3/uL (0.0-0.7) Basophils # (Auto) 0.1x10^3/uL (0.0-0.2) Sodium Level 143mmol/L (136-145) Potassium Level 4.1mmol/L (3.5-5.1) Chloride Level 113mmol/L (98-107) Carbon Dioxide Level 18mmol/L (21-32) Anion Gap 12 (6-14) Blood Urea Nitrogen 40mg/dL (8-26) Creatinine 3.1mg/dL (0.7-1.3) Estimated GFR (Cockcroft-Gault) 26.7 BUN/Creatinine Ratio 13 (6-20) Glucose Level 104mg/dL (70-99) Calcium Level 9.0mg/dL (8.5-10.1) Phosphorus Level 3.8mg/dL (2.6-4.7) Magnesium Level 2.0mg/dL (1.8-2.4) Total Bilirubin 0.2mg/dL (0.2-1.0) Aspartate Amino Transf (AST/SGOT) 22U/L (15-37) Alanine Aminotransferase (ALT/SGPT) 14U/L (16-63) Alkaline Phosphatase 84U/L (46-116) Total Protein 6.4g/dL (6.4-8.2) Albumin 1.8g/dL (3.4-5.0) Albumin/Globulin Ratio 0.4 (1.0-1.7) Triglycerides Level 160mg/dL (0-150) Test 09/12/16 08:15 09/12/16 12:52 O2 Saturation 98% (92-99) Arterial Blood pH 7.33 (7.35-7.45) Arterial Blood pCO2 at Patient Temp 32mmHg (35-46) Arterial Blood pO2 at Patient Temp 132mmHg (75-108) Arterial Blood HCO3 16mmol/L (21-28) Arterial Blood Base Excess -9mmol/L (-3-3) FiO2 40 Glucose (Fingerstick) 100mg/dL (70-99) Problem List Problems Medical Problems: (1) Small bowel obstruction Status: Acute Assessment/Plan s/p SBR cont NGT (mildly bilious) d/w pt's at bedside Problems: BLU HODGSON MD Sep 12, 2016 13:50
[2016-09-12 18:55] LABS: HCO3 ABG 17 mmol/L (21-28); PCO2 ABG 37 mmHg (35-46); PH ABG 7.29 (7.35-7.45); PO2 ABG 136 mmHg (75-108); SAT O2 ABG 98 % (92-99)
[2016-09-12 18:57] LABS: FIO2 ABG 40
[2016-09-12] MEDS: MICAFUNGIN 100 MG in IV DEXTROSE 5% 100 ML IV SCH (19:33)
[2016-09-12] MEDS ORDERED: AMINO ACIDS IV SCH ×9 (22:00)
[2016-09-12] MEDS ORDERED: DEXTROSE 70% IV SCH ×9 (22:00)
[2016-09-12] MEDS ORDERED: TOTAL PARENTERAL NUTRITION IV SCH ×9 (22:00)
[2016-09-12] MEDS ORDERED: [UNRECOGNIZED DRUG - OTHER] IV SCH ×9 (22:00)
[2016-09-13] VITALS (16 sets, daily range): BP systolic 100–151; BP diastolic 56–81
[2016-09-13] MEDS: ERYTHROMYCIN LACT 125 MG in IV NORMAL SALINE 100ML 100 ML IV SCH ×3 (00:19→12:34)
[2016-09-13] MEDS: METOPROLOL TARTRATE 5 MG/5 ML VIAL. IVP SCH ×3 (00:20→12:35)
[2016-09-13] MEDS: FENTANYL PF 100 MCG/2 ML VIAL. IV PRN ×2 (01:13→05:51)
--- NOTE | 2016-09-13 02:58 | CONS ---
DATE OF CONSULTATION: HISTORY OF PRESENT ILLNESS: A 41-year-old -[place] gentleman from the ____/[place] area. He apparently had developed chest pain and was life-flighted to [place] in 04/2016. He thereafter had thoracic aneurysm/dissection repair and has been to numerous [facility] and other hospitals for numerous reasons is known to have been on dialysis right after his surgery; however, was taken off dialysis since his creatinine was better. He recently did a 24-hour urine collection from [facility] in [place] where his creatinine clearance was 25 mL per minute. He has had sonograms and imaging studies, whereby his kidneys have been described as being relatively normal. He apparently developed a small-bowel obstruction and was transferred from [facility] to [facility]. We were asked to see him for abnormal electrolytes. He is also noted to have had issues with sepsis, PICC line infection, etc. in the past. He is now in the ICU on the [facility] and is nonverbal. Most of his history has been obtained from his . SOCIAL HISTORY: Lives at bedside. For rest of the details, please see electronic records. CASIE GOMEZ MD DR: LADARIUS/lizette JOB#: [id number] / [id number]
[2016-09-13] MEDS: METOCLOPRAMIDE HCL 10 MG/2 ML VIAL. IV SCH (05:37)
[2016-09-13] MEDS: PANTOPRAZOLE IV PUSH 40 MG VIAL. IVP SCH (05:37)
[2016-09-13] MEDS: hydrALAZINE 20 MG/ML VIAL. IVP SCH ×3 (05:37→12:36)
[2016-09-13] MEDS: INSULIN ASPART 300 UNITS/3 ML INSULN.PEN SQ SCH ×3 (05:50→12:00)
[2016-09-13 06:08] LABS: BASO # 0.1 x10^3/uL (0.0-0.2); BASO % 1 % (0-3); EOS % 2 % (0-3); HEMATOCRIT 24.1 % (39.0-53.0); HEMOGLOBIN 7.7 g/dL (13.0-17.5); LYMPH # 3.1 x10^3/uL (1.0-4.8); LYMPH % 25 % (24-48); MEAN CORPUSCULAR HEMOGLOBIN 29 pg (25-35); MEAN CORPUSCULAR HGB CONC 32 g/dL (31-37); MEAN CORPUSCULAR VOLUME 91 fL (79-100); MONO % 11 % (0-9); NEUT % 61 % (31-73); PLATELET COUNT 267 x10^3/uL (140-400); RED BLOOD COUNT 2.63 x10^6/uL (4.30-5.70); RED CELL DISTRIBUTION WIDTH 16.5 % (11.5-14.5); WHITE BLOOD COUNT 12.2 x10^3/uL (4.0-11.0)
[2016-09-13 06:26] LABS: ALBUMIN 1.6 g/dL (3.4-5.0); ALBUMIN/GLOBULIN RATIO 0.4 (1.0-1.7); CALCIUM 9.1 mg/dL (8.5-10.1); CREATININE 3.3 mg/dL (0.7-1.3); GFR 24.9; POTASSIUM 4.3 mmol/L (3.5-5.1); TOTAL BILIRUBIN 0.3 mg/dL (0.2-1.0); TOTAL PROTEIN 6.1 g/dL (6.4-8.2)
[2016-09-13] MEDS: IPRATRPIUM/ALBUTEROL 0.5/2.5MG 3 ML NEBU. NEB SCH ×3 (07:41→15:35)
--- NOTE | 2016-09-13 07:48 | PDOC3 ---
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 SBO s/p SB resection 09/11/16 2. Michaelle parapsilosis sepsis POA 3. PSA sepsis due to central line blood stream infection POA 4. DVT LUE with suspected GIB recent POA 5. 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 HTN 7. anemia CD/ESRD-sepsis 8. ESRD post ARF with HD 3 times weekly 9. suspected GIB prior to admission 10. DM II 11. seizure disorder Mar 2016 12. h/o splenic infarct 13, pancreatic cyst 14. chronic trach 15. PEG chronic 16. dysphagia with chronic ETF 17. encephalopathy -non responsive post CVA 18. diastolic CHF EF 50-55% not acute 19. chronic respiratory failure with trach 20. tachypneic secondary to sepsis upon admission with MV initiated-not acute respiratory failure 21. pneumonia 22. severe PCL malnutrition 23. hypomagnesia resolved 24. dry eye Consults Consults Castillo Robles MD, Dr., Dr., Dr., Dr., Dr. Procedures Procedures DATE OF SURGERY: 09/11/2016 REFERRING PHYSICIANS: 1. Dr. Kaylie Shankar. 2. Dr. Cristhian Shankar. 3. Dr. Marshal Robles. 4. Dr. Velazquez. 5. Dr. Ilan Lara at [facility]. 6. Dr. Enrique Berumen. Thank you for the consult. PREOPERATIVE DIAGNOSIS: Small-bowel obstruction. POSTOPERATIVE DIAGNOSES: Small-bowel obstruction, small-bowel stricture. PROCEDURE: Laparoscopic converted to open exploration, lysis of adhesions, and small-bowel resection. SURGEON: Medardo John MD ESTIMATED BLOOD LOSS: 50 mL FLUIDS: 1100 mL. COMPLICATIONS: None. FINDINGS: Two points of stricture concerning for inflammatory bowel disease, possible Crohn's in the ileum with a resultant small-bowel obstruction. INDICATIONS: A 41-year-old male with multiple medical problems who has been at [facility]. He has had difficulties with maintaining tube feeds, and imaging was concerning for possible small-bowel obstruction versus ileus. Subsequently, it was felt the patient will best be served by laparoscopic versus open exploration. The patient's was informed of the risks, benefits, and alternatives to procedure, risks including but not limited to bleeding, infection, damage to surrounding structures, risk of anesthesia, and risk of an open procedure. The patient's appeared to understand, and her insightful questions were answered, and she agrees to proceed. DESCRIPTION OF PROCEDURE: After obtaining informed consent, the patient was taken to the operating room and induced under general endotracheal anesthetic. The patient was prepped and draped in the usual fashion in the anterior abdominal wall. A 0.5% Marcaine with epinephrine was injected into the right midabdomen. Incision was made using 15-blade scalpel. A 5-mm nonbladed trocar was introduced into the abdominal cavity under direct vision of laparoscope. Pneumoperitoneum was established. Additional 5-mm port was placed in the suprapubic area under direct laparoscopic guidance. The abdominal cavity was explored. The proximal small bowel was noted to be fairly distended with distal decompression. Bowel appeared to be viable throughout. Liver was normal in appearance. There was no obvious hernia. Initial manipulation of the bowel with a grasper was very difficult secondary to the way that it distended small bowel. It was felt that the patient will best be served by evisceration of the small bowel for evaluation. A midline incision was made using electrocautery. Subcutaneous tissue was divided using electrocautery. Fascia was divided in the midline. This allowed evisceration of the small bowel. Of note, the colon had been explored previously and was normal in appearance. Small bowel was run from ligament of Treitz to terminal ileum. There was noted to be some adhesions, which were lysed. These were fairly minimal and did not appear to be the main source of the issue. There was noted to be two areas of significant stricture; one shorter one in the lower ileum and another one distal, which was of longer length of approximately 4 cm with a resultant small-bowel obstruction. Given these findings, it was felt that the patient will best be served by a small-bowel resection. Gentle load JOHN stapler was taken across the small bowel distal to the area of concern and proximal to the area of concern. Mesentery was taken using Impact LigaSure. The specimen was passed off field and sent to Pathology for evaluation. Pathology grossly demonstrated that the two areas of stricture were felt to be inflammatory bowel disease, but no obvious cancer or tumor and certainly the concern for possible Crohn's. A [id number] stapled anastomosis was created using gentle load JOHN stapler. This did also allow significant decompression of the proximal small bowel. The end of this was sealed off using a TA 60 stapler. The anastomosis was reinforced using multiple interrupted 3-0 Vicryl stitches. Mesentery defect was closed using 3-0 Chromic. The anastomosis was noted to be patent, and no tension, completely viable without evidence for leakage. The viscera was returned to the abdominal cavity. The abdominal cavity was copiously irrigated with normal saline solution. There was no evidence of bleeding or other pathology at the time of closure. The omentum was placed over the bowel. The fascia was reapproximated in midline using 2 looped 0 PDS stitches in continuous fashion, and a [place] drain was placed in the subcutaneous tissues. Subcutaneous tissues were reapproximated with 3-0 Vicryl. Skin incisions were approximated with 4-0 Monocryl in subcuticular fashion. Sterile dressing was placed over all wounds. The patient tolerated the procedure well and was discharged to Recovery Room and to the ICU in a stable condition. All counts were correct. There were no immediate complications. MEDARDO JOHN MD DR: KETAN/lizette JOB#: [id number] / [id number] APPROVED REPORT EXAM: Two-dimensional and M-mode echocardiogram with Doppler and color Doppler. Other Information Quality : Good HR: 98bpm Rhythm : NSR INDICATION Chest Pain 2D DIMENSIONS RVDd 1.9 (2.9-3.5cm) Left Atrium(2D) 3.7 (1.6-4.0cm) IVSd 1.3 (0.7-1.1cm) LVDd 4.9 (3.9-5.9cm) LVOT Diameter 2.4 (1.8-2.4cm) PWd 1.2 (0.7-1.1cm) LVDs 3.6 (2.5-4.0cm) FS (%) 26.0 % SV 57.5 ml LVEF(%) 50.8 (>50%) Aortic Valve AoV Peak Nazario. 141.3cm/s AoV VTI 22.9cm AO Peak GR. 8.0mmHg LVOT Peak Nazario. 106.2cm/s AO Mean GR. 4mmHg JAY (VMAX) 3.37cm2 Mitral Valve MV E Velocity 71.3cm/s MV E Peak Gr. 3mmHg MV A Velocity 103.1cm/s MV E Mean Gr. 1mmHg E/A Ratio 0.7 MV A Duration 97ms Pulmonary Valve PV Peak Velocity 126.7cm/s Pulmonary Vein S1 Velocity 51.9cm/s D2 Velocity 36.4cm/s PVa duration 32msec LEFT VENTRICLE The left ventricle is normal size. There is normal left ventricular wall thickness. The left ventricular systolic function is normal and the ejection fraction is within normal range. The Ejection Fraction is 50-55%. Abnormal septal wall motion is noted suggestive of prior infarct/conduction abnormality. Transmitral Doppler flow pattern is Grade I-abnormal relaxation pattern. RIGHT VENTRICLE The right ventricle is normal size. There is normal right ventricular wall thickness. The right ventricular systolic function is normal. ATRIA The left atrium size is normal. The right atrium size is normal. A catheter is seen in the right atrium consistent with history. The interatrial septum is intact with no evidence for an atrial septal defect or patent foramen ovale as noted on 2-D or Doppler imaging. AORTIC VALVE The aortic valve is mildly thickened. The aortic valve is trileaflet. Doppler and Color Flow revealed no significant aortic regurgitation. There is no significant aortic valvular stenosis. MITRAL VALVE Mitral annular calcification is mild. The mitral valve leaflets are thickened. There is no evidence of mitral valve prolapse. There is no mitral valve stenosis. Doppler and Color Flow revealed trace mitral regurgitation. TRICUSPID VALVE The tricuspid valve is normal in structure and function. Doppler and Color Flow revealed no tricuspid valve regurgitation noted. There is no tricuspid valve stenosis. PULMONIC VALVE Doppler and Color Flow revealed no pulmonic valvular regurgitation. There is no pulmonic valvular stenosis. GREAT VESSELS The aortic root is normal in size. The ascending aorta is normal in size. A subcostal window was not available, the IVC could not be assessed. PERICARDIAL EFFUSION There is no evidence of significant pericardial effusion. Critical Notification Critical Value: No <Conclusion> The left ventricular systolic function is normal and the ejection fraction is within normal range. The Ejection Fraction is 50-55%. Abnormal septal wall motion is noted suggestive of prior infarct/conduction abnormality. The right atrium size is normal. A catheter is seen in the right atrium consistent with history. Technically difficult study No clear valvular lesions noted. DICTATED and SIGNED BY: JASMEET MCGUIRE MD DATE: 09/10/16 3691 Labs Labs Laboratory Tests Test 09/10/16 14:45 09/10/16 16:25 09/11/16 05:45 09/11/16 16:15 White Blood Count 14.3x10^3/uL (4.0-11.0) 10.6x10^3/uL (4.0-11.0) Red Blood Count 3.19x10^6/uL (4.30-5.70) 2.83x10^6/uL (4.30-5.70) Hemoglobin 9.4g/dL (13.0-17.5) 8.5g/dL (13.0-17.5) Hematocrit 28.6% (39.0-53.0) 25.1% (39.0-53.0) Mean Corpuscular Volume 90fL (79-100) 89fL (79-100) Mean Corpuscular Hemoglobin 30pg (25-35) 30pg (25-35) Mean Corpuscular Hemoglobin Concent 33g/dL (31-37) 34g/dL (31-37) Red Cell Distribution Width 15.9% (11.5-14.5) 16.7% (11.5-14.5) Platelet Count 274x10^3/uL (140-400) 275x10^3/uL (140-400) Neutrophils (%) (Auto) 67% (31-73) 53% (31-73) Lymphocytes (%) (Auto) 21% (24-48) 31% (24-48) Monocytes (%) (Auto) 8% (0-9) 11% (0-9) Eosinophils (%) (Auto) 3% (0-3) 5% (0-3) Basophils (%) (Auto) 1% (0-3) 1% (0-3) Neutrophils # (Auto) 9.6x10^3uL (1.8-7.7) 5.6x10^3uL (1.8-7.7) Lymphocytes # (Auto) 3.0x10^3/uL (1.0-4.8) 3.3x10^3/uL (1.0-4.8) Monocytes # (Auto) 1.2x10^3/uL (0.0-1.1) 1.1x10^3/uL (0.0-1.1) Eosinophils # (Auto) 0.4x10^3/uL (0.0-0.7) 0.5x10^3/uL (0.0-0.7) Basophils # (Auto) 0.1x10^3/uL (0.0-0.2) 0.1x10^3/uL (0.0-0.2) Prothrombin Time 14.2SEC (11.7-14.0) 15.0SEC (11.7-14.0) Prothromb Time International Ratio 1.2 (0.8-1.1) 1.3 (0.8-1.1) Nasal Screen MRSA (PCR) Negative (Negative) Sodium Level 144mmol/L (136-145) 146mmol/L (136-145) Potassium Level 3.5mmol/L (3.5-5.1) 3.6mmol/L (3.5-5.1) Chloride Level 111mmol/L (98-107) 114mmol/L (98-107) Carbon Dioxide Level 22mmol/L (21-32) 20mmol/L (21-32) Anion Gap 11 (6-14) 12 (6-14) Blood Urea Nitrogen 29mg/dL (8-26) 31mg/dL (8-26) Creatinine 2.0mg/dL (0.7-1.3) 2.6mg/dL (0.7-1.3) Estimated GFR (Cockcroft-Gault) 44.3 32.8 BUN/Creatinine Ratio 15 (6-20) 12 (6-20) Glucose Level 100mg/dL (70-99) 81mg/dL (70-99) Lactic Acid Level 1.0mmol/L (0.4-2.0) Calcium Level 9.3mg/dL (8.5-10.1) 9.1mg/dL (8.5-10.1) Magnesium Level 1.2mg/dL (1.8-2.4) 2.2mg/dL (1.8-2.4) Total Bilirubin 0.6mg/dL (0.2-1.0) 0.3mg/dL (0.2-1.0) Aspartate Amino Transf (AST/SGOT) 17U/L (15-37) 21U/L (15-37) Alanine Aminotransferase (ALT/SGPT) 17U/L (16-63) 16U/L (16-63) Alkaline Phosphatase 93U/L (46-116) 89U/L (46-116) Total Protein 7.9g/dL (6.4-8.2) 7.1g/dL (6.4-8.2) Albumin 2.2g/dL (3.4-5.0) 2.0g/dL (3.4-5.0) Albumin/Globulin Ratio 0.4 (1.0-1.7) 0.4 (1.0-1.7) O2 Saturation 99% (92-99) 98% (92-99) Arterial Blood pH 7.34 (7.35-7.45) 7.30 (7.35-7.45) Arterial Blood pCO2 at Patient Temp 35mmHg (35-46) 36mmHg (35-46) Arterial Blood pO2 at Patient Temp 203mmHg (75-108) 130mmHg (75-108) Arterial Blood HCO3 19mmol/L (21-28) 17mmol/L (21-28) Arterial Blood Base Excess -7mmol/L (-3-3) -9mmol/L (-3-3) FiO2 50 40 Test 09/12/16 00:12 09/12/16 06:35 09/12/16 06:40 09/12/16 08:15 Glucose (Fingerstick) 94mg/dL (70-99) 100mg/dL (70-99) White Blood Count 14.0x10^3/uL (4.0-11.0) Red Blood Count 2.82x10^6/uL (4.30-5.70) Hemoglobin 8.2g/dL (13.0-17.5) Hematocrit 25.7% (39.0-53.0) Mean Corpuscular Volume 91fL (79-100) Mean Corpuscular Hemoglobin 29pg (25-35) Mean Corpuscular Hemoglobin Concent 32g/dL (31-37) Red Cell Distribution Width 16.6% (11.5-14.5) Platelet Count 262x10^3/uL (140-400) Neutrophils (%) (Auto) 67% (31-73) Lymphocytes (%) (Auto) 21% (24-48) Monocytes (%) (Auto) 12% (0-9) Eosinophils (%) (Auto) 0% (0-3) Basophils (%) (Auto) 1% (0-3) Neutrophils # (Auto) 9.3x10^3uL (1.8-7.7) Lymphocytes # (Auto) 2.9x10^3/uL (1.0-4.8) Monocytes # (Auto) 1.7x10^3/uL (0.0-1.1) Eosinophils # (Auto) 0.0x10^3/uL (0.0-0.7) Basophils # (Auto) 0.1x10^3/uL (0.0-0.2) Sodium Level 143mmol/L (136-145) Potassium Level 4.1mmol/L (3.5-5.1) Chloride Level 113mmol/L (98-107) Carbon Dioxide Level 18mmol/L (21-32) Anion Gap 12 (6-14) Blood Urea Nitrogen 40mg/dL (8-26) Creatinine 3.1mg/dL (0.7-1.3) Estimated GFR (Cockcroft-Gault) 26.7 BUN/Creatinine Ratio 13 (6-20) Glucose Level 104mg/dL (70-99) Calcium Level 9.0mg/dL (8.5-10.1) Phosphorus Level 3.8mg/dL (2.6-4.7) Magnesium Level 2.0mg/dL (1.8-2.4) Total Bilirubin 0.2mg/dL (0.2-1.0) Aspartate Amino Transf (AST/SGOT) 22U/L (15-37) Alanine Aminotransferase (ALT/SGPT) 14U/L (16-63) Alkaline Phosphatase 84U/L (46-116) Total Protein 6.4g/dL (6.4-8.2) Albumin 1.8g/dL (3.4-5.0) Albumin/Globulin Ratio 0.4 (1.0-1.7) Triglycerides Level 160mg/dL (0-150) O2 Saturation 98% (92-99) Arterial Blood pH 7.33 (7.35-7.45) Arterial Blood pCO2 at Patient Temp 32mmHg (35-46) Arterial Blood pO2 at Patient Temp 132mmHg (75-108) Arterial Blood HCO3 16mmol/L (21-28) Arterial Blood Base Excess -9mmol/L (-3-3) FiO2 40 Test 09/12/16 12:52 09/12/16 18:39 09/12/16 18:40 09/13/16 00:17 Glucose (Fingerstick) 100mg/dL (70-99) 108mg/dL (70-99) 100mg/dL (70-99) O2 Saturation 98% (92-99) Arterial Blood pH 7.29 (7.35-7.45) Arterial Blood pCO2 at Patient Temp 37mmHg (35-46) Arterial Blood pO2 at Patient Temp 136mmHg (75-108) Arterial Blood HCO3 17mmol/L (21-28) Arterial Blood Base Excess -9mmol/L (-3-3) FiO2 40 Test 09/13/16 05:34 09/13/16 05:50 Glucose (Fingerstick) 91mg/dL (70-99) White Blood Count 12.2x10^3/uL (4.0-11.0) Red Blood Count 2.63x10^6/uL (4.30-5.70) Hemoglobin 7.7g/dL (13.0-17.5) Hematocrit 24.1% (39.0-53.0) Mean Corpuscular Volume 91fL (79-100) Mean Corpuscular Hemoglobin 29pg (25-35) Mean Corpuscular Hemoglobin Concent 32g/dL (31-37) Red Cell Distribution Width 16.5% (11.5-14.5) Platelet Count 267x10^3/uL (140-400) Neutrophils (%) (Auto) 61% (31-73) Lymphocytes (%) (Auto) 25% (24-48) Monocytes (%) (Auto) 11% (0-9) Eosinophils (%) (Auto) 2% (0-3) Basophils (%) (Auto) 1% (0-3) Neutrophils # (Auto) 7.4x10^3uL (1.8-7.7) Lymphocytes # (Auto) 3.1x10^3/uL (1.0-4.8) Monocytes # (Auto) 1.3x10^3/uL (0.0-1.1) Eosinophils # (Auto) 0.2x10^3/uL (0.0-0.7) Basophils # (Auto) 0.1x10^3/uL (0.0-0.2) Sodium Level 144mmol/L (136-145) Potassium Level 4.3mmol/L (3.5-5.1) Chloride Level 113mmol/L (98-107) Carbon Dioxide Level 16mmol/L (21-32) Anion Gap 15 (6-14) Blood Urea Nitrogen 45mg/dL (8-26) Creatinine 3.3mg/dL (0.7-1.3) Estimated GFR (Cockcroft-Gault) 24.9 BUN/Creatinine Ratio 14 (6-20) Glucose Level 98mg/dL (70-99) Calcium Level 9.1mg/dL (8.5-10.1) Phosphorus Level 4.3mg/dL (2.6-4.7) Total Bilirubin 0.3mg/dL (0.2-1.0) Aspartate Amino Transf (AST/SGOT) 16U/L (15-37) Alanine Aminotransferase (ALT/SGPT) 9U/L (16-63) Alkaline Phosphatase 79U/L (46-116) Total Protein 6.1g/dL (6.4-8.2) Albumin 1.6g/dL (3.4-5.0) Albumin/Globulin Ratio 0.4 (1.0-1.7) Medications Medications Medications reviewed and reconciled for discharge. Brief hospital course Brief hospital course This 41 year old Amercian male who presented with SBO was admitted. The following is a summary of his treatment: SBO NPO surgical consult repair planned 09/11/16 GI consult cardiology consult -surgical clearance POD #2 SB resection Sepsis ID consult IV antibiotics Cefepime, Erythromycin, and Micafungin Admit WBC 14.3 09/13 12.2 chronic respiratory failure pulmonary consult vent nebulizer tx trach chronic PS 09/12 1pm to 7 pm 09/13 AM pressure support started ESRD renal consult HD 3 times weekly Admit Mg 1.2-Mg SO4 4gm IV 09/11 2.2 K 3.5 09/13 4.3 PO4 4.3 monitor anemia CD Admit Hgb 9.4 09/13 7.7 TC 2 unit for surgery ?recent GIB-Protonix 40 IV BID monitor DVT LUE SCD/ELIAS pre op Lovenox post op -DC 09/12 Heparin sq PPI continue eval/monitor HTN malignant 09/10 with lopressor IV initiated stable labile with medications per nursing notes seizure disorder continue Vimpat -change to IV until ok to resume PEG meds monitor severe PCL malnutrition NPO Peg clamped x48hr post surgery TPN per pharmacy FSBS q6hr with low intensity SSI BS 91-[address] Shankar 09/11-no longer needed. prognosis poor For more details regarding the past history, family history, social history, surgical history and other details, please refer to History and Physical. Plan to discharge to [facility] for ongoing care if ok with Dr. John. Please see discharge orders and discharge medications. Subjective sleeping Objective no distress, no response to verbal commands or verbal interaction Vitals Vital Signs Date Time Temp Pulse Resp B/P Pulse Ox O2 Delivery O2 Flow Rate FiO2 09/13/16 07:41 100 Ventilator 09/13/16 07:00 77 16 124/67 09/13/16 04:00 98.5 98.5 Physical Exam General appearance - opens eyes to name, non responsive to verbal,commands Mental Status - opens eyes to name, not responsive to commands Head - normal Neck- dressing R neck, trach midline Chest - clear to auscultation, no wheezes, rales or rhonchi Heart - S1 and S2 normal Abdomen -firm, surgical dressing in place, BS minimal, NG to intermittent suction Neurological - post old CVA with deficits; currently with no acute neurological deficits Musculoskeletal - no muscular tenderness noted Extremities - no pedal edema, SCD ELIAS Skin - warm and dry Medications Medications reviewed. Allergy Allergies Coded Allergies Type Severity Reaction Last Updated Verified aspirin Allergy Intermediate 09/07/16 Yes Follow up Admit to Dr. Shankar Disposition: [facility] acute care hosp Comments Discharge Management - 35 minutes. For other details please refer to discharge instructions KAYLIE SHANKAR MD 09/13/16 1052: IM DISCHARGE & PROGRESS NOTES Brief hospital course Brief hospital course Much more awake. D/w .Off vent. Transfer to [facility]. The patient was seen and examined by me. Chart reviewed and plan of care formulated. Discussed with, reviewed and agree with IT OPERATIONS ANALYST's notes, plan of care and orders with modifications as necessary. For more details regarding further plans, please refer to the orders. LUZ ELENA CHONG APRN Sep 13, 2016 07:48 KAYLIE SHANKAR MD Sep 13, 2016 10:52
--- NOTE | 2016-09-13 07:56 | PDOC ---
SUBJECTIVE ROS CVS: [] Orthopnea, [] CP RESP: [] SOB, [] BREWER GI: [] Nausea, [] Vomiting : [] Dysuria, [] Urgency OBJECTIVE Vital Signs Vital Signs Date Time Temp Pulse Resp B/P Pulse Ox O2 Delivery O2 Flow Rate FiO2 09/13/16 07:41 100 Ventilator 09/13/16 07:00 77 16 124/67 09/13/16 04:00 98.5 98.5 I & 0 Intake and Output 09/13/16 07:00 Intake Total 2567.88 ml Output Total 1237 ml Balance 1330.88 ml IV Total 2567.88 ml Output Urine Total 1137 ml Gastric Drainage Total 100 ml PHYSICAL EXAM Physical Exam GEN: Awake, Oriented x [], In [] distress EYES: Vision Unchanged, Conjunctiva Normal EN: No EN Drainage, Mucous Membranes [] NECK: [] JVD, [] JVP, Supple, [] Thyromegaly CVS: S1S2, [] Murmur, No Gallop, No Rub,[] Edema RESP: [] Rales, [] Rhonchi,[] Acc. Muscle Use GI: BS + ve, NO Bruit, Non Tender, Non Distended : [] CVA tenderness, [] Suprapubic Tenderness DIAGNOSIS/ASSESSMENT Assessment & Plan ESRD/ARF: Current fluid and E-lyte status does not necessitate emergent need for dialysis. Will re-evaluate for dialysis in the am and continue on [] schedule. ANEMIA; [] Aranap as ordered, [] Transfuse [] with next HD as needed HTN: Current BP meds as reviewed. See orders for changes. BONE & MINERAL: [] Discussed Plan of Care with family [] at bedside [] over the phone Problems: COMMENT/RELEVANT DATA Meds Current Medications Medications (Trade) Dose Ordered Sig/Saul Start Time Stop Time Status Last Admin Dose Admin Acetaminophen (Tylenol) 650 mg PRN Q6HRS PRN 09/10/16 20:45 Albuterol/ Ipratropium (Duoneb) 3 ml RTQID 09/11/16 08:00 09/13/16 07:41 3 ML Alteplase, Recombinant (Cathflo) 2 mg 1X ONCE 09/10/16 22:00 09/10/16 22:01 DC 09/10/16 21:48 2 MG Amiodarone HCl 200 mg 200 mg DAILY 09/11/16 09:00 09/11/16 17:54 DC Amlodipine Besylate (Norvasc) 5 mg DAILY 09/11/16 09:00 Bupivacaine HCl/ Epinephrine Bitart (Sensorcain-Mpf Epi 0.5%-1:902620) 30 ml STK-MED ONCE 09/11/16 08:32 09/11/16 08:48 DC 09/11/16 08:32 9 ML Cefazolin Sodium/ Dextrose 50 ml @ 100 mls/hr 1X PREOP 09/11/16 08:00 09/11/16 08:48 100 MLS/HR Cefepime HCl/ Sodium Chloride (Maxipime/Iv Sodium Chloride 0.9% 100ml) 100 ml @ 200 mls/hr Q12HR 09/10/16 22:00 09/12/16 20:47 200 MLS/HR Desflurane 60 ml 60 ml STK-MED ONCE 09/11/16 07:37 09/11/16 07:38 DC Dexamethasone Sodium Phosphate (Decadron) 20 mg STK-MED ONCE 09/11/16 07:36 09/11/16 07:37 DC Enoxaparin Sodium (Lovenox 40mg Syringe) 40 mg Q24H 09/11/16 11:00 09/12/16 09:42 DC Ephedrine Sulfate 50 mg STK-MED ONCE 09/11/16 08:27 09/11/16 08:28 DC Erythromycin Lactobionate/ Sodium Chloride (Erythrocin/Iv Sodium Chloride 0.9% 100ml) 100 ml @ 100 mls/hr Q6HRS 09/11/16 00:00 09/13/16 05:37 100 MLS/HR Fentanyl Citrate (Fentanyl 2ml Vial) 100 mcg STK-MED ONCE 09/11/16 07:37 09/11/16 07:38 DC Fentanyl Citrate 50 mcg 50 mcg PRN Q2HR PRN 09/11/16 17:15 09/13/16 05:51 50 MCG Heparin Sodium (Porcine) 5,000 unit Q12HR 09/12/16 10:00 09/12/16 20:49 5,000 UNIT Hydralazine HCl (Apresoline) 10 mg Q6HRS 09/11/16 00:00 09/12/16 18:43 10 MG Info 1 each PRN DAILY PRN 09/11/16 19:15 09/12/16 11:15 1 EACH Info 1 each 1 each PRN DAILY PRN 09/12/16 09:45 Insulin Aspart (Novolog) Q6HRS 09/12/16 12:00 Lacosamide (Vimpat) 100 mg DAILY10 09/11/16 10:00 09/11/16 10:00 DC Lacosamide/Sodium Chloride (Vimpat/Iv Sodium Chloride 0.9% 50ml) 60 ml @ 120 mls/hr DAILY10 09/11/16 10:00 09/12/16 10:41 120 MLS/HR Lorazepam 0.5 mg 0.5 mg PRN Q6HRS PRN 09/10/16 20:45 09/13/16 00:12 0.5 MG Magnesium Sulfate/ Dextrose 100 ml @ 25 mls/hr 1X ONCE 09/10/16 20:00 09/10/16 23:59 DC 09/10/16 20:31 25 MLS/HR Metoclopramide HCl (Reglan) 10 mg Q8HRS 09/11/16 06:00 09/13/16 05:37 10 MG Metoprolol Tartrate (Lopressor) 5 mg Q6HRS 09/10/16 18:00 09/13/16 05:37 5 MG Metronidazole (FLAGYL 500Mmg PREMIX) 500 mg STK-MED ONCE 09/11/16 09:20 09/12/16 08:54 DC Micafungin Sodium/ Dextrose (Mycamine) 100 ml @ 100 mls/hr Q24H 09/10/16 20:00 09/12/16 19:33 100 MLS/HR Miconazole Nitrate 1 rk 1 rk BID 09/11/16 09:00 09/12/16 20:47 1 RK Miconazole Nitrate (Monistat-Derm) 1 rk BID 09/10/16 21:00 09/10/16 21:24 DC Midazolam HCl (Versed) 2 mg STK-MED ONCE 09/11/16 09:03 09/11/16 09:04 DC Morphine Sulfate 10 mg STK-MED ONCE 09/11/16 09:02 09/11/16 09:03 DC Ondansetron HCl (Zofran) 4 mg STK-MED ONCE 09/11/16 07:36 09/11/16 07:37 DC Pantoprazole Sodium (Protonix Vial) 40 mg [id number] 09/10/16 18:00 09/13/16 05:37 40 MG Phenylephrine HCl 1 mg STK-MED ONCE 09/11/16 08:34 09/11/16 08:35 DC Potassium Chloride 30 meq/ Sodium Chloride 1,015 ml @ 40 mls/hr Q24H 09/11/16 18:00 09/12/16 16:19 DC Potassium Chloride/Sodium Chloride (Iv Sodium Chloride 0.45%) 1,015 ml @ 40 mls/hr Q24H 09/11/16 18:00 Cancel Propofol (Diprivan) 1,000 mg STK-MED ONCE 09/10/16 14:46 09/11/16 08:09 DC Rocuronium [place] (Zemuron) 50 mg STK-MED ONCE 09/11/16 07:37 09/11/16 07:38 DC Sodium Bicarbonate 100 meq 100 meq 1X ONCE 09/11/16 19:30 09/11/16 19:31 DC 09/11/16 19:37 100 MEQ Sodium Bicarbonate 50 meq 50 meq 1X ONCE 09/10/16 18:00 09/10/16 18:01 DC 09/10/16 18:25 50 MEQ Sodium Chloride (Iv Sodium Chloride 0.9% 500ml Bag) 500 ml @ 500 mls/hr 1X ONCE 09/11/16 01:00 09/11/16 02:21 DC 09/11/16 01:00 500 MLS/HR Sodium Chloride (Normal Saline Flush 3ml) 3 ml QSHIFT PRN 09/10/16 20:45 Sodium Chloride (Normal Saline Flush) 3 ml QSHIFT PRN 09/11/16 09:30 Sodium Chloride/ Potassium Chloride/ Potassium Phosphate/ Magnesium Sulfate/ Calcium Gluconate/ Multivitamins/ Chromium/Copper/ Manganese/Seleni/ Zn/Total Parenteral Nutrition/Amino Acids/Dextrose (Sodium Chloride/ Potassium Phosphate/ Infuvite Adult/ Multitrace-5 Co... 1,512 ml @ 63 mls/hr TPN CONT 09/11/16 22:00 09/12/16 21:59 DC 09/11/16 22:18 63 MLS/HR Sodium Chloride/ Potassium Chloride/ Potassium Acetate/ Potassium Phosphate/ Magnesium Sulfate/ Multivitamins/ Chromium/Copper/ Manganese/Seleni/ Zn/Total Parenteral Nutrition/Amino Acids/Dextrose (Sodium Chloride/ Potassium Phosphate/ Infuvite Adult/ Multitrace-5 Co... 1,512 ml @ 63 mls/hr TPN CONT 09/12/16 22:00 09/13/16 21:59 09/12/16 22:06 63 MLS/HR Lab Laboratory Tests Test 09/12/16 08:15 09/12/16 12:52 09/12/16 18:39 09/12/16 18:40 O2 Saturation 98% (92-99) 98% (92-99) Arterial Blood pH 7.33 (7.35-7.45) 7.29 (7.35-7.45) Arterial Blood pCO2 at Patient Temp 32mmHg (35-46) 37mmHg (35-46) Arterial Blood pO2 at Patient Temp 132mmHg (75-108) 136mmHg (75-108) Arterial Blood HCO3 16mmol/L (21-28) 17mmol/L (21-28) Arterial Blood Base Excess -9mmol/L (-3-3) -9mmol/L (-3-3) FiO2 40 40 Glucose (Fingerstick) 100mg/dL (70-99) 108mg/dL (70-99) Test 09/13/16 00:17 09/13/16 05:34 09/13/16 05:50 Glucose (Fingerstick) 100mg/dL (70-99) 91mg/dL (70-99) White Blood Count 12.2x10^3/uL (4.0-11.0) Red Blood Count 2.63x10^6/uL (4.30-5.70) Hemoglobin 7.7g/dL (13.0-17.5) Hematocrit 24.1% (39.0-53.0) Mean Corpuscular Volume 91fL (79-100) Mean Corpuscular Hemoglobin 29pg (25-35) Mean Corpuscular Hemoglobin Concent 32g/dL (31-37) Red Cell Distribution Width 16.5% (11.5-14.5) Platelet Count 267x10^3/uL (140-400) Neutrophils (%) (Auto) 61% (31-73) Lymphocytes (%) (Auto) 25% (24-48) Monocytes (%) (Auto) 11% (0-9) Eosinophils (%) (Auto) 2% (0-3) Basophils (%) (Auto) 1% (0-3) Neutrophils # (Auto) 7.4x10^3uL (1.8-7.7) Lymphocytes # (Auto) 3.1x10^3/uL (1.0-4.8) Monocytes # (Auto) 1.3x10^3/uL (0.0-1.1) Eosinophils # (Auto) 0.2x10^3/uL (0.0-0.7) Basophils # (Auto) 0.1x10^3/uL (0.0-0.2) Sodium Level 144mmol/L (136-145) Potassium Level 4.3mmol/L (3.5-5.1) Chloride Level 113mmol/L (98-107) Carbon Dioxide Level 16mmol/L (21-32) Anion Gap 15 (6-14) Blood Urea Nitrogen 45mg/dL (8-26) Creatinine 3.3mg/dL (0.7-1.3) Estimated GFR (Cockcroft-Gault) 24.9 BUN/Creatinine Ratio 14 (6-20) Glucose Level 98mg/dL (70-99) Calcium Level 9.1mg/dL (8.5-10.1) Phosphorus Level 4.3mg/dL (2.6-4.7) Total Bilirubin 0.3mg/dL (0.2-1.0) Aspartate Amino Transf (AST/SGOT) 16U/L (15-37) Alanine Aminotransferase (ALT/SGPT) 9U/L (16-63) Alkaline Phosphatase 79U/L (46-116) Total Protein 6.1g/dL (6.4-8.2) Albumin 1.6g/dL (3.4-5.0) Albumin/Globulin Ratio 0.4 (1.0-1.7) CASIE GOMEZ MD Sep 13, 2016 07:55
--- NOTE | 2016-09-13 07:57 | PDOC ---
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 moist Neck: no JVD no JVP Supple no palp Thyromegaly; Trache in place CVS: S1 S2 ? Murmur No Gallop No Rub + Edema on left upper ext Resp: no Rales occ Rhonchi no Acc. Muscle use GI: BS hypoactive NO Bruit Non Tender ? min Distended : no CVA tenderness; no Suprapubic Tenderness Assessment & Plan STEPHENIE - watch trend for now; Current FLuid and E-lyte status does not necessitate emergent need for Dialysis. Will re-evaluate for Dialysis in am; baseline Creat is NA but usually runs in 2-3 range depending on fluid status. ? CKD III/ IV - after STEPHENIE/ ATN recovery. CT Reports WRT kidney : There is a small cyst in the lateral aspect of the left kidney. The kidneys show no evidence of obstruction. Met ACidosis - Add Acetate to TPN SEv HypoAlb - TPn for now; TF when Gut is ready to use ^Na - now better. Discussed Plan of Care and prognosis etc. at length with family. COMMENT/RELEVANT DATA Meds Current Medications Medications (Trade) Dose Ordered Sig/Saul Start Time Stop Time Status Last Admin Dose Admin Acetaminophen (Tylenol) 650 mg PRN Q6HRS PRN 09/10/16 20:45 Albuterol/ Ipratropium (Duoneb) 3 ml RTQID 09/11/16 08:00 09/13/16 07:41 3 ML Alteplase, Recombinant (Cathflo) 2 mg 1X ONCE 09/10/16 22:00 09/10/16 22:01 DC 09/10/16 21:48 2 MG Amiodarone HCl 200 mg 200 mg DAILY 09/11/16 09:00 09/11/16 17:54 DC Amlodipine Besylate (Norvasc) 5 mg DAILY 09/11/16 09:00 Bupivacaine HCl/ Epinephrine Bitart (Sensorcain-Mpf Epi 0.5%-1:692737) 30 ml STK-MED ONCE 09/11/16 08:32 09/11/16 08:48 DC 09/11/16 08:32 9 ML Cefazolin Sodium/ Dextrose 50 ml @ 100 mls/hr 1X PREOP 09/11/16 08:00 09/11/16 08:48 100 MLS/HR Cefepime HCl/ Sodium Chloride (Maxipime/Iv Sodium Chloride 0.9% 100ml) 100 ml @ 200 mls/hr Q12HR 09/10/16 22:00 09/12/16 20:47 200 MLS/HR Desflurane 60 ml 60 ml STK-MED ONCE 09/11/16 07:37 09/11/16 07:38 DC Dexamethasone Sodium Phosphate (Decadron) 20 mg STK-MED ONCE 09/11/16 07:36 09/11/16 07:37 DC Enoxaparin Sodium (Lovenox 40mg Syringe) 40 mg Q24H 09/11/16 11:00 09/12/16 09:42 DC Ephedrine Sulfate 50 mg STK-MED ONCE 09/11/16 08:27 09/11/16 08:28 DC Erythromycin Lactobionate/ Sodium Chloride (Erythrocin/Iv Sodium Chloride 0.9% 100ml) 100 ml @ 100 mls/hr Q6HRS 09/11/16 00:00 09/13/16 05:37 100 MLS/HR Fentanyl Citrate (Fentanyl 2ml Vial) 100 mcg STK-MED ONCE 09/11/16 07:37 09/11/16 07:38 DC Fentanyl Citrate 50 mcg 50 mcg PRN Q2HR PRN 09/11/16 17:15 09/13/16 05:51 50 MCG Heparin Sodium (Porcine) 5,000 unit Q12HR 09/12/16 10:00 09/12/16 20:49 5,000 UNIT Hydralazine HCl (Apresoline) 10 mg Q6HRS 09/11/16 00:00 09/12/16 18:43 10 MG Info 1 each PRN DAILY PRN 09/11/16 19:15 09/12/16 11:15 1 EACH Info 1 each 1 each PRN DAILY PRN 09/12/16 09:45 Insulin Aspart (Novolog) Q6HRS 09/12/16 12:00 Lacosamide (Vimpat) 100 mg DAILY10 09/11/16 10:00 09/11/16 10:00 DC Lacosamide/Sodium Chloride (Vimpat/Iv Sodium Chloride 0.9% 50ml) 60 ml @ 120 mls/hr DAILY10 09/11/16 10:00 09/12/16 10:41 120 MLS/HR Lorazepam 0.5 mg 0.5 mg PRN Q6HRS PRN 09/10/16 20:45 09/13/16 00:12 0.5 MG Magnesium Sulfate/ Dextrose 100 ml @ 25 mls/hr 1X ONCE 09/10/16 20:00 09/10/16 23:59 DC 09/10/16 20:31 25 MLS/HR Metoclopramide HCl (Reglan) 10 mg Q8HRS 09/11/16 06:00 09/13/16 05:37 10 MG Metoprolol Tartrate (Lopressor) 5 mg Q6HRS 09/10/16 18:00 09/13/16 05:37 5 MG Metronidazole (FLAGYL 500Mmg PREMIX) 500 mg STK-MED ONCE 09/11/16 09:20 09/12/16 08:54 DC Micafungin Sodium/ Dextrose (Mycamine) 100 ml @ 100 mls/hr Q24H 09/10/16 20:00 09/12/16 19:33 100 MLS/HR Miconazole Nitrate 1 rk 1 rk BID 09/11/16 09:00 09/12/16 20:47 1 RK Miconazole Nitrate (Monistat-Derm) 1 rk BID 09/10/16 21:00 09/10/16 21:24 DC Midazolam HCl (Versed) 2 mg STK-MED ONCE 09/11/16 09:03 09/11/16 09:04 DC Morphine Sulfate 10 mg STK-MED ONCE 09/11/16 09:02 09/11/16 09:03 DC Ondansetron HCl (Zofran) 4 mg STK-MED ONCE 09/11/16 07:36 09/11/16 07:37 DC Pantoprazole Sodium (Protonix Vial) 40 mg [id number] 09/10/16 18:00 09/13/16 05:37 40 MG Phenylephrine HCl 1 mg STK-MED ONCE 09/11/16 08:34 09/11/16 08:35 DC Potassium Chloride 30 meq/ Sodium Chloride 1,015 ml @ 40 mls/hr Q24H 09/11/16 18:00 09/12/16 16:19 DC Potassium Chloride/Sodium Chloride (Iv Sodium Chloride 0.45%) 1,015 ml @ 40 mls/hr Q24H 09/11/16 18:00 Cancel Propofol (Diprivan) 1,000 mg STK-MED ONCE 09/10/16 14:46 09/11/16 08:09 DC Rocuronium [place] (Zemuron) 50 mg STK-MED ONCE 09/11/16 07:37 09/11/16 07:38 DC Sodium Bicarbonate 100 meq 100 meq 1X ONCE 09/11/16 19:30 09/11/16 19:31 DC 09/11/16 19:37 100 MEQ Sodium Bicarbonate 50 meq 50 meq 1X ONCE 09/10/16 18:00 09/10/16 18:01 DC 09/10/16 18:25 50 MEQ Sodium Chloride (Iv Sodium Chloride 0.9% 500ml Bag) 500 ml @ 500 mls/hr 1X ONCE 09/11/16 01:00 09/11/16 02:21 DC 09/11/16 01:00 500 MLS/HR Sodium Chloride (Normal Saline Flush 3ml) 3 ml QSHIFT PRN 09/10/16 20:45 Sodium Chloride (Normal Saline Flush) 3 ml QSHIFT PRN 09/11/16 09:30 Sodium Chloride/ Potassium Chloride/ Potassium Phosphate/ Magnesium Sulfate/ Calcium Gluconate/ Multivitamins/ Chromium/Copper/ Manganese/Seleni/ Zn/Total Parenteral Nutrition/Amino Acids/Dextrose (Sodium Chloride/ Potassium Phosphate/ Infuvite Adult/ Multitrace-5 Co... 1,512 ml @ 63 mls/hr TPN CONT 09/11/16 22:00 09/12/16 21:59 DC 09/11/16 22:18 63 MLS/HR Sodium Chloride/ Potassium Chloride/ Potassium Acetate/ Potassium Phosphate/ Magnesium Sulfate/ Multivitamins/ Chromium/Copper/ Manganese/Seleni/ Zn/Total Parenteral Nutrition/Amino Acids/Dextrose (Sodium Chloride/ Potassium Phosphate/ Infuvite Adult/ Multitrace-5 Co... 1,512 ml @ 63 mls/hr TPN CONT 09/12/16 22:00 09/13/16 21:59 09/12/16 22:06 63 MLS/HR Lab Laboratory Tests Test 09/12/16 08:15 09/12/16 12:52 09/12/16 18:39 09/12/16 18:40 O2 Saturation 98% (92-99) 98% (92-99) Arterial Blood pH 7.33 (7.35-7.45) 7.29 (7.35-7.45) Arterial Blood pCO2 at Patient Temp 32mmHg (35-46) 37mmHg (35-46) Arterial Blood pO2 at Patient Temp 132mmHg (75-108) 136mmHg (75-108) Arterial Blood HCO3 16mmol/L (21-28) 17mmol/L (21-28) Arterial Blood Base Excess -9mmol/L (-3-3) -9mmol/L (-3-3) FiO2 40 40 Glucose (Fingerstick) 100mg/dL (70-99) 108mg/dL (70-99) Test 09/13/16 00:17 09/13/16 05:34 09/13/16 05:50 Glucose (Fingerstick) 100mg/dL (70-99) 91mg/dL (70-99) White Blood Count 12.2x10^3/uL (4.0-11.0) Red Blood Count 2.63x10^6/uL (4.30-5.70) Hemoglobin 7.7g/dL (13.0-17.5) Hematocrit 24.1% (39.0-53.0) Mean Corpuscular Volume 91fL (79-100) Mean Corpuscular Hemoglobin 29pg (25-35) Mean Corpuscular Hemoglobin Concent 32g/dL (31-37) Red Cell Distribution Width 16.5% (11.5-14.5) Platelet Count 267x10^3/uL (140-400) Neutrophils (%) (Auto) 61% (31-73) Lymphocytes (%) (Auto) 25% (24-48) Monocytes (%) (Auto) 11% (0-9) Eosinophils (%) (Auto) 2% (0-3) Basophils (%) (Auto) 1% (0-3) Neutrophils # (Auto) 7.4x10^3uL (1.8-7.7) Lymphocytes # (Auto) 3.1x10^3/uL (1.0-4.8) Monocytes # (Auto) 1.3x10^3/uL (0.0-1.1) Eosinophils # (Auto) 0.2x10^3/uL (0.0-0.7) Basophils # (Auto) 0.1x10^3/uL (0.0-0.2) Sodium Level 144mmol/L (136-145) Potassium Level 4.3mmol/L (3.5-5.1) Chloride Level 113mmol/L (98-107) Carbon Dioxide Level 16mmol/L (21-32) Anion Gap 15 (6-14) Blood Urea Nitrogen 45mg/dL (8-26) Creatinine 3.3mg/dL (0.7-1.3) Estimated GFR (Cockcroft-Gault) 24.9 BUN/Creatinine Ratio 14 (6-20) Glucose Level 98mg/dL (70-99) Calcium Level 9.1mg/dL (8.5-10.1) Phosphorus Level 4.3mg/dL (2.6-4.7) Total Bilirubin 0.3mg/dL (0.2-1.0) Aspartate Amino Transf (AST/SGOT) 16U/L (15-37) Alanine Aminotransferase (ALT/SGPT) 9U/L (16-63) Alkaline Phosphatase 79U/L (46-116) Total Protein 6.1g/dL (6.4-8.2) Albumin 1.6g/dL (3.4-5.0) Albumin/Globulin Ratio 0.4 (1.0-1.7) CASIE GOMEZ MD Sep 13, 2016 07:57
--- NOTE | 2016-09-13 08:11 | PDOC ---
Infectious Disease Note Subjective Subjective on vent ROS ROS unable to do Vital Sign Vital Signs Vital Signs Date Time Temp Pulse Resp B/P Pulse Ox O2 Delivery O2 Flow Rate FiO2 09/13/16 07:41 100 Ventilator 09/13/16 07:00 77 16 124/67 09/13/16 04:00 98.5 98.5 Physical Exam PHYSICAL EXAM GENERAL: on vent HEENT: PERRL, OC/OP NECK: Supple, no JVD, no LN LUNGS: Clear HEART: S1S2, no gallop, no murmur ABD: Soft, NT, no organomegaly, no rebound EXT: No edema, no cyanosis LASER ENGRAVER: Alert, unresponsive SKIN: No rash IV: ok Labs Lab Laboratory Tests Test 09/12/16 08:15 09/12/16 12:52 09/12/16 18:39 09/12/16 18:40 O2 Saturation 98% (92-99) 98% (92-99) Arterial Blood pH 7.33 (7.35-7.45) 7.29 (7.35-7.45) Arterial Blood pCO2 at Patient Temp 32mmHg (35-46) 37mmHg (35-46) Arterial Blood pO2 at Patient Temp 132mmHg (75-108) 136mmHg (75-108) Arterial Blood HCO3 16mmol/L (21-28) 17mmol/L (21-28) Arterial Blood Base Excess -9mmol/L (-3-3) -9mmol/L (-3-3) FiO2 40 40 Glucose (Fingerstick) 100mg/dL (70-99) 108mg/dL (70-99) Test 09/13/16 00:17 09/13/16 05:34 09/13/16 05:50 Glucose (Fingerstick) 100mg/dL (70-99) 91mg/dL (70-99) White Blood Count 12.2x10^3/uL (4.0-11.0) Red Blood Count 2.63x10^6/uL (4.30-5.70) Hemoglobin 7.7g/dL (13.0-17.5) Hematocrit 24.1% (39.0-53.0) Mean Corpuscular Volume 91fL (79-100) Mean Corpuscular Hemoglobin 29pg (25-35) Mean Corpuscular Hemoglobin Concent 32g/dL (31-37) Red Cell Distribution Width 16.5% (11.5-14.5) Platelet Count 267x10^3/uL (140-400) Neutrophils (%) (Auto) 61% (31-73) Lymphocytes (%) (Auto) 25% (24-48) Monocytes (%) (Auto) 11% (0-9) Eosinophils (%) (Auto) 2% (0-3) Basophils (%) (Auto) 1% (0-3) Neutrophils # (Auto) 7.4x10^3uL (1.8-7.7) Lymphocytes # (Auto) 3.1x10^3/uL (1.0-4.8) Monocytes # (Auto) 1.3x10^3/uL (0.0-1.1) Eosinophils # (Auto) 0.2x10^3/uL (0.0-0.7) Basophils # (Auto) 0.1x10^3/uL (0.0-0.2) Sodium Level 144mmol/L (136-145) Potassium Level 4.3mmol/L (3.5-5.1) Chloride Level 113mmol/L (98-107) Carbon Dioxide Level 16mmol/L (21-32) Anion Gap 15 (6-14) Blood Urea Nitrogen 45mg/dL (8-26) Creatinine 3.3mg/dL (0.7-1.3) Estimated GFR (Cockcroft-Gault) 24.9 BUN/Creatinine Ratio 14 (6-20) Glucose Level 98mg/dL (70-99) Calcium Level 9.1mg/dL (8.5-10.1) Phosphorus Level 4.3mg/dL (2.6-4.7) Total Bilirubin 0.3mg/dL (0.2-1.0) Aspartate Amino Transf (AST/SGOT) 16U/L (15-37) Alanine Aminotransferase (ALT/SGPT) 9U/L (16-63) Alkaline Phosphatase 79U/L (46-116) Total Protein 6.1g/dL (6.4-8.2) Albumin 1.6g/dL (3.4-5.0) Albumin/Globulin Ratio 0.4 (1.0-1.7) Objective Assessment Bowel obstruction Fungemia PSA bacteremia CVA Persistant veg state Thoracic aneurysm surgery Plan Plan of Care cont cefepime and micafungin supportive care EDWARD GOMEZ MD Sep 13, 2016 08:10
[2016-09-13] MEDS: CEFEPIME HCL 2 GM in IV NORMAL SALINE 100ML 100 ML IV SCH (09:23)
[2016-09-13] MEDS: AMLODIPINE BESYLATE 5 MG TABLET PEG SCH (09:23)
[2016-09-13] MEDS: HEPARIN PF for SUB-Q USE 5,000 UNIT/0.5 ML VIAL. SQ SCH (09:37)
[2016-09-13] MEDS: MICONAZOLE NITRATE 2% TOPICAL POWDER 85GM JAR. TP SCH (09:39)
--- NOTE | 2016-09-13 10:30 | PDOC ---
PULMONARY PROGRESS NOTES Subjective OFF VENT On TS s/p exp. lap Vitals Vital Signs Date Time Temp Pulse Resp B/P Pulse Ox O2 Delivery O2 Flow Rate FiO2 09/13/16 09:27 99 Tracheal Collar 09/13/16 09:23 90 143/68 09/13/16 07:00 16 09/13/16 04:00 98.5 98.5 Lungs: Other (decrease bs) Cardiovascular: S1 Abdomen: Soft, Other (decrease bs) Extremities: Other (trace edema) Labs Laboratory Tests Test 09/11/16 16:15 09/12/16 00:12 09/12/16 06:35 09/12/16 06:40 O2 Saturation 98% (92-99) Arterial Blood pH 7.30 (7.35-7.45) Arterial Blood pCO2 at Patient Temp 36mmHg (35-46) Arterial Blood pO2 at Patient Temp 130mmHg (75-108) Arterial Blood HCO3 17mmol/L (21-28) Arterial Blood Base Excess -9mmol/L (-3-3) FiO2 40 Glucose (Fingerstick) 94mg/dL (70-99) 100mg/dL (70-99) White Blood Count 14.0x10^3/uL (4.0-11.0) Red Blood Count 2.82x10^6/uL (4.30-5.70) Hemoglobin 8.2g/dL (13.0-17.5) Hematocrit 25.7% (39.0-53.0) Mean Corpuscular Volume 91fL (79-100) Mean Corpuscular Hemoglobin 29pg (25-35) Mean Corpuscular Hemoglobin Concent 32g/dL (31-37) Red Cell Distribution Width 16.6% (11.5-14.5) Platelet Count 262x10^3/uL (140-400) Neutrophils (%) (Auto) 67% (31-73) Lymphocytes (%) (Auto) 21% (24-48) Monocytes (%) (Auto) 12% (0-9) Eosinophils (%) (Auto) 0% (0-3) Basophils (%) (Auto) 1% (0-3) Neutrophils # (Auto) 9.3x10^3uL (1.8-7.7) Lymphocytes # (Auto) 2.9x10^3/uL (1.0-4.8) Monocytes # (Auto) 1.7x10^3/uL (0.0-1.1) Eosinophils # (Auto) 0.0x10^3/uL (0.0-0.7) Basophils # (Auto) 0.1x10^3/uL (0.0-0.2) Sodium Level 143mmol/L (136-145) Potassium Level 4.1mmol/L (3.5-5.1) Chloride Level 113mmol/L (98-107) Carbon Dioxide Level 18mmol/L (21-32) Anion Gap 12 (6-14) Blood Urea Nitrogen 40mg/dL (8-26) Creatinine 3.1mg/dL (0.7-1.3) Estimated GFR (Cockcroft-Gault) 26.7 BUN/Creatinine Ratio 13 (6-20) Glucose Level 104mg/dL (70-99) Calcium Level 9.0mg/dL (8.5-10.1) Phosphorus Level 3.8mg/dL (2.6-4.7) Magnesium Level 2.0mg/dL (1.8-2.4) Total Bilirubin 0.2mg/dL (0.2-1.0) Aspartate Amino Transf (AST/SGOT) 22U/L (15-37) Alanine Aminotransferase (ALT/SGPT) 14U/L (16-63) Alkaline Phosphatase 84U/L (46-116) Total Protein 6.4g/dL (6.4-8.2) Albumin 1.8g/dL (3.4-5.0) Albumin/Globulin Ratio 0.4 (1.0-1.7) Triglycerides Level 160mg/dL (0-150) Test 09/12/16 08:15 09/12/16 12:52 09/12/16 18:39 09/12/16 18:40 O2 Saturation 98% (92-99) 98% (92-99) Arterial Blood pH 7.33 (7.35-7.45) 7.29 (7.35-7.45) Arterial Blood pCO2 at Patient Temp 32mmHg (35-46) 37mmHg (35-46) Arterial Blood pO2 at Patient Temp 132mmHg (75-108) 136mmHg (75-108) Arterial Blood HCO3 16mmol/L (21-28) 17mmol/L (21-28) Arterial Blood Base Excess -9mmol/L (-3-3) -9mmol/L (-3-3) FiO2 40 40 Glucose (Fingerstick) 100mg/dL (70-99) 108mg/dL (70-99) Test 09/13/16 00:17 09/13/16 05:34 09/13/16 05:50 Glucose (Fingerstick) 100mg/dL (70-99) 91mg/dL (70-99) White Blood Count 12.2x10^3/uL (4.0-11.0) Red Blood Count 2.63x10^6/uL (4.30-5.70) Hemoglobin 7.7g/dL (13.0-17.5) Hematocrit 24.1% (39.0-53.0) Mean Corpuscular Volume 91fL (79-100) Mean Corpuscular Hemoglobin 29pg (25-35) Mean Corpuscular Hemoglobin Concent 32g/dL (31-37) Red Cell Distribution Width 16.5% (11.5-14.5) Platelet Count 267x10^3/uL (140-400) Neutrophils (%) (Auto) 61% (31-73) Lymphocytes (%) (Auto) 25% (24-48) Monocytes (%) (Auto) 11% (0-9) Eosinophils (%) (Auto) 2% (0-3) Basophils (%) (Auto) 1% (0-3) Neutrophils # (Auto) 7.4x10^3uL (1.8-7.7) Lymphocytes # (Auto) 3.1x10^3/uL (1.0-4.8) Monocytes # (Auto) 1.3x10^3/uL (0.0-1.1) Eosinophils # (Auto) 0.2x10^3/uL (0.0-0.7) Basophils # (Auto) 0.1x10^3/uL (0.0-0.2) Sodium Level 144mmol/L (136-145) Potassium Level 4.3mmol/L (3.5-5.1) Chloride Level 113mmol/L (98-107) Carbon Dioxide Level 16mmol/L (21-32) Anion Gap 15 (6-14) Blood Urea Nitrogen 45mg/dL (8-26) Creatinine 3.3mg/dL (0.7-1.3) Estimated GFR (Cockcroft-Gault) 24.9 BUN/Creatinine Ratio 14 (6-20) Glucose Level 98mg/dL (70-99) Calcium Level 9.1mg/dL (8.5-10.1) Phosphorus Level 4.3mg/dL (2.6-4.7) Total Bilirubin 0.3mg/dL (0.2-1.0) Aspartate Amino Transf (AST/SGOT) 16U/L (15-37) Alanine Aminotransferase (ALT/SGPT) 9U/L (16-63) Alkaline Phosphatase 79U/L (46-116) Total Protein 6.1g/dL (6.4-8.2) Albumin 1.6g/dL (3.4-5.0) Albumin/Globulin Ratio 0.4 (1.0-1.7) Laboratory Tests Test 09/12/16 12:52 09/12/16 18:39 09/12/16 18:40 09/13/16 00:17 Glucose (Fingerstick) 100mg/dL (70-99) 108mg/dL (70-99) 100mg/dL (70-99) O2 Saturation 98% (92-99) Arterial Blood pH 7.29 (7.35-7.45) Arterial Blood pCO2 at Patient Temp 37mmHg (35-46) Arterial Blood pO2 at Patient Temp 136mmHg (75-108) Arterial Blood HCO3 17mmol/L (21-28) Arterial Blood Base Excess -9mmol/L (-3-3) FiO2 40 Test 09/13/16 05:34 09/13/16 05:50 Glucose (Fingerstick) 91mg/dL (70-99) White Blood Count 12.2x10^3/uL (4.0-11.0) Red Blood Count 2.63x10^6/uL (4.30-5.70) Hemoglobin 7.7g/dL (13.0-17.5) Hematocrit 24.1% (39.0-53.0) Mean Corpuscular Volume 91fL (79-100) Mean Corpuscular Hemoglobin 29pg (25-35) Mean Corpuscular Hemoglobin Concent 32g/dL (31-37) Red Cell Distribution Width 16.5% (11.5-14.5) Platelet Count 267x10^3/uL (140-400) Neutrophils (%) (Auto) 61% (31-73) Lymphocytes (%) (Auto) 25% (24-48) Monocytes (%) (Auto) 11% (0-9) Eosinophils (%) (Auto) 2% (0-3) Basophils (%) (Auto) 1% (0-3) Neutrophils # (Auto) 7.4x10^3uL (1.8-7.7) Lymphocytes # (Auto) 3.1x10^3/uL (1.0-4.8) Monocytes # (Auto) 1.3x10^3/uL (0.0-1.1) Eosinophils # (Auto) 0.2x10^3/uL (0.0-0.7) Basophils # (Auto) 0.1x10^3/uL (0.0-0.2) Sodium Level 144mmol/L (136-145) Potassium Level 4.3mmol/L (3.5-5.1) Chloride Level 113mmol/L (98-107) Carbon Dioxide Level 16mmol/L (21-32) Anion Gap 15 (6-14) Blood Urea Nitrogen 45mg/dL (8-26) Creatinine 3.3mg/dL (0.7-1.3) Estimated GFR (Cockcroft-Gault) 24.9 BUN/Creatinine Ratio 14 (6-20) Glucose Level 98mg/dL (70-99) Calcium Level 9.1mg/dL (8.5-10.1) Phosphorus Level 4.3mg/dL (2.6-4.7) Total Bilirubin 0.3mg/dL (0.2-1.0) Aspartate Amino Transf (AST/SGOT) 16U/L (15-37) Alanine Aminotransferase (ALT/SGPT) 9U/L (16-63) Alkaline Phosphatase 79U/L (46-116) Total Protein 6.1g/dL (6.4-8.2) Albumin 1.6g/dL (3.4-5.0) Albumin/Globulin Ratio 0.4 (1.0-1.7) Medications Active Scripts Medications Dose Route/Sig Days Date Category Amiodarone Hcl 200 Mg Tablet 1 Tab PEG DAILY 09/11/16 Reported Docusate Sodium 100 Mg Capsule 100 Mg PEG BID 09/11/16 Reported Miconazole Nitrate 130 Gm Aero.powd 130 Gm TP PRN PRN 09/11/16 Reported Reglan (Metoclopramide Hcl) 10 Mg Tablet 10 Mg IV Q8HRS 09/11/16 Reported Amlodipine Besylate 10 Mg Tablet 10 Mg PEG DAILY 09/11/16 Reported Acetaminophen 160 Mg/5 Ml Solution 650 Mg PEG PRN Q6HRS PRN 09/11/16 Reported Ondansetron Odt (Ondansetron) 4 Mg Tab.rapdis 4 Mg PEG Q8HRS PRN 09/11/16 Reported Ondansetron Hcl 4 Mg/2 Ml Syr (Ondansetron Hcl/Pf) 4 Mg/2 Ml Disp.syrin 4 Mg IV PRN Q8HRS PRN 09/11/16 Reported Duoneb 0.5-3(2.5) Mg/3 Ml (Albuterol/Ipratropium) 3 Ml Ampul.neb 3 Ml NEB BID 09/11/16 Reported Pantoprazole Sodium 40 Mg Tablet.dr 40 Mg IV DAILY 09/11/16 Reported Cefepime Hcl 2 Gm Vial 2 Gm IV Q12HR 09/11/16 Reported Erythrocin Lactobionate (Erythromycin Lactobionate) 500 Mg Vial 125 Mg IV Q6HRS 09/11/16 Reported Eraxis (Water Diluent) (Anidulafungin) 100 Mg Vial 100 Mg IV DAILY 09/11/16 Reported Lorazepam 0.5 Mg Tablet 0.5 Mg IV PRN Q6HRS PRN 09/11/16 Reported FENTANYL 25mcg/hr (Fentanyl) 1 Each Patch.td72 25 Mcg IV PRN Q6HRS PRN 09/11/16 Reported Hydralazine Hcl 10 Mg Tablet 10 Mg IV Q6HRS 09/11/16 Reported Vimpat (Lacosamide) 1 Each Tab.ds.pk 100 Mg PO DAILY 08/29/16 Reported Comments CXR stable Impression . 1. Fpefm-su-[id number] respiratory failure, secondary to suspected sepsis/small-bowel obstruction. 2. 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 3. History of fungemia and sepsis. 4. Pneumonia. 5. History of congestive heart failure. 6. Recent small-bowel obstruction with early sepsis. 7. History of cardiac arrhythmias on amiodarone. 8. History of left upper extremity deep venous thrombosis. 9. Anemia. Plan . 1. Continue TS 2. prn vent. 3. prn narcotics. 4. Follow Surgical recommendations 5. Infectious disease recommendations 6. Follow cardiology recommendations. 8. Follow renal function. 10. Heparin for Deep venous thrombosis prophylaxis. 11. Enteral nutrition on hold due to small-bowel obstruction. 12. Discussed with RN and RT. and Dr Shankar can go back to [facility] REBEL LICONA MD Sep 13, 2016 10:30
[2016-09-13] MEDS: TPN PER PHARMACY MC PRN (10:58)
--- NOTE | 2016-09-13 11:17 | PDOC ---
SURGICAL PROGRESS NOTE Subjective Pt appears comfortable, min output in clamped NGT Vital Signs Vital Signs Date Time Temp Pulse Resp B/P Pulse Ox O2 Delivery O2 Flow Rate FiO2 09/13/16 10:00 92 18 137/68 100 trach shield 10.0 09/13/16 08:00 98.2 98.2 I&O Intake and Output 09/13/16 07:00 Intake Total 2567.88 ml Output Total 1287 ml Balance 1280.88 ml IV Total 2567.88 ml Output Urine Total 1187 ml Gastric Drainage Total 100 ml General: No acute distress Abdomen: Soft, No tenderness Labs Laboratory Tests Test 09/11/16 16:15 09/12/16 00:12 09/12/16 06:35 09/12/16 06:40 O2 Saturation 98% (92-99) Arterial Blood pH 7.30 (7.35-7.45) Arterial Blood pCO2 at Patient Temp 36mmHg (35-46) Arterial Blood pO2 at Patient Temp 130mmHg (75-108) Arterial Blood HCO3 17mmol/L (21-28) Arterial Blood Base Excess -9mmol/L (-3-3) FiO2 40 Glucose (Fingerstick) 94mg/dL (70-99) 100mg/dL (70-99) White Blood Count 14.0x10^3/uL (4.0-11.0) Red Blood Count 2.82x10^6/uL (4.30-5.70) Hemoglobin 8.2g/dL (13.0-17.5) Hematocrit 25.7% (39.0-53.0) Mean Corpuscular Volume 91fL (79-100) Mean Corpuscular Hemoglobin 29pg (25-35) Mean Corpuscular Hemoglobin Concent 32g/dL (31-37) Red Cell Distribution Width 16.6% (11.5-14.5) Platelet Count 262x10^3/uL (140-400) Neutrophils (%) (Auto) 67% (31-73) Lymphocytes (%) (Auto) 21% (24-48) Monocytes (%) (Auto) 12% (0-9) Eosinophils (%) (Auto) 0% (0-3) Basophils (%) (Auto) 1% (0-3) Neutrophils # (Auto) 9.3x10^3uL (1.8-7.7) Lymphocytes # (Auto) 2.9x10^3/uL (1.0-4.8) Monocytes # (Auto) 1.7x10^3/uL (0.0-1.1) Eosinophils # (Auto) 0.0x10^3/uL (0.0-0.7) Basophils # (Auto) 0.1x10^3/uL (0.0-0.2) Sodium Level 143mmol/L (136-145) Potassium Level 4.1mmol/L (3.5-5.1) Chloride Level 113mmol/L (98-107) Carbon Dioxide Level 18mmol/L (21-32) Anion Gap 12 (6-14) Blood Urea Nitrogen 40mg/dL (8-26) Creatinine 3.1mg/dL (0.7-1.3) Estimated GFR (Cockcroft-Gault) 26.7 BUN/Creatinine Ratio 13 (6-20) Glucose Level 104mg/dL (70-99) Calcium Level 9.0mg/dL (8.5-10.1) Phosphorus Level 3.8mg/dL (2.6-4.7) Magnesium Level 2.0mg/dL (1.8-2.4) Total Bilirubin 0.2mg/dL (0.2-1.0) Aspartate Amino Transf (AST/SGOT) 22U/L (15-37) Alanine Aminotransferase (ALT/SGPT) 14U/L (16-63) Alkaline Phosphatase 84U/L (46-116) Total Protein 6.4g/dL (6.4-8.2) Albumin 1.8g/dL (3.4-5.0) Albumin/Globulin Ratio 0.4 (1.0-1.7) Triglycerides Level 160mg/dL (0-150) Test 09/12/16 08:15 09/12/16 12:52 09/12/16 18:39 09/12/16 18:40 O2 Saturation 98% (92-99) 98% (92-99) Arterial Blood pH 7.33 (7.35-7.45) 7.29 (7.35-7.45) Arterial Blood pCO2 at Patient Temp 32mmHg (35-46) 37mmHg (35-46) Arterial Blood pO2 at Patient Temp 132mmHg (75-108) 136mmHg (75-108) Arterial Blood HCO3 16mmol/L (21-28) 17mmol/L (21-28) Arterial Blood Base Excess -9mmol/L (-3-3) -9mmol/L (-3-3) FiO2 40 40 Glucose (Fingerstick) 100mg/dL (70-99) 108mg/dL (70-99) Test 09/13/16 00:17 09/13/16 05:34 09/13/16 05:50 Glucose (Fingerstick) 100mg/dL (70-99) 91mg/dL (70-99) White Blood Count 12.2x10^3/uL (4.0-11.0) Red Blood Count 2.63x10^6/uL (4.30-5.70) Hemoglobin 7.7g/dL (13.0-17.5) Hematocrit 24.1% (39.0-53.0) Mean Corpuscular Volume 91fL (79-100) Mean Corpuscular Hemoglobin 29pg (25-35) Mean Corpuscular Hemoglobin Concent 32g/dL (31-37) Red Cell Distribution Width 16.5% (11.5-14.5) Platelet Count 267x10^3/uL (140-400) Neutrophils (%) (Auto) 61% (31-73) Lymphocytes (%) (Auto) 25% (24-48) Monocytes (%) (Auto) 11% (0-9) Eosinophils (%) (Auto) 2% (0-3) Basophils (%) (Auto) 1% (0-3) Neutrophils # (Auto) 7.4x10^3uL (1.8-7.7) Lymphocytes # (Auto) 3.1x10^3/uL (1.0-4.8) Monocytes # (Auto) 1.3x10^3/uL (0.0-1.1) Eosinophils # (Auto) 0.2x10^3/uL (0.0-0.7) Basophils # (Auto) 0.1x10^3/uL (0.0-0.2) Sodium Level 144mmol/L (136-145) Potassium Level 4.3mmol/L (3.5-5.1) Chloride Level 113mmol/L (98-107) Carbon Dioxide Level 16mmol/L (21-32) Anion Gap 15 (6-14) Blood Urea Nitrogen 45mg/dL (8-26) Creatinine 3.3mg/dL (0.7-1.3) Estimated GFR (Cockcroft-Gault) 24.9 BUN/Creatinine Ratio 14 (6-20) Glucose Level 98mg/dL (70-99) Calcium Level 9.1mg/dL (8.5-10.1) Phosphorus Level 4.3mg/dL (2.6-4.7) Total Bilirubin 0.3mg/dL (0.2-1.0) Aspartate Amino Transf (AST/SGOT) 16U/L (15-37) Alanine Aminotransferase (ALT/SGPT) 9U/L (16-63) Alkaline Phosphatase 79U/L (46-116) Total Protein 6.1g/dL (6.4-8.2) Albumin 1.6g/dL (3.4-5.0) Albumin/Globulin Ratio 0.4 (1.0-1.7) Laboratory Tests Test 09/12/16 12:52 09/12/16 18:39 09/12/16 18:40 09/13/16 00:17 Glucose (Fingerstick) 100mg/dL (70-99) 108mg/dL (70-99) 100mg/dL (70-99) O2 Saturation 98% (92-99) Arterial Blood pH 7.29 (7.35-7.45) Arterial Blood pCO2 at Patient Temp 37mmHg (35-46) Arterial Blood pO2 at Patient Temp 136mmHg (75-108) Arterial Blood HCO3 17mmol/L (21-28) Arterial Blood Base Excess -9mmol/L (-3-3) FiO2 40 Test 09/13/16 05:34 09/13/16 05:50 Glucose (Fingerstick) 91mg/dL (70-99) White Blood Count 12.2x10^3/uL (4.0-11.0) Red Blood Count 2.63x10^6/uL (4.30-5.70) Hemoglobin 7.7g/dL (13.0-17.5) Hematocrit 24.1% (39.0-53.0) Mean Corpuscular Volume 91fL (79-100) Mean Corpuscular Hemoglobin 29pg (25-35) Mean Corpuscular Hemoglobin Concent 32g/dL (31-37) Red Cell Distribution Width 16.5% (11.5-14.5) Platelet Count 267x10^3/uL (140-400) Neutrophils (%) (Auto) 61% (31-73) Lymphocytes (%) (Auto) 25% (24-48) Monocytes (%) (Auto) 11% (0-9) Eosinophils (%) (Auto) 2% (0-3) Basophils (%) (Auto) 1% (0-3) Neutrophils # (Auto) 7.4x10^3uL (1.8-7.7) Lymphocytes # (Auto) 3.1x10^3/uL (1.0-4.8) Monocytes # (Auto) 1.3x10^3/uL (0.0-1.1) Eosinophils # (Auto) 0.2x10^3/uL (0.0-0.7) Basophils # (Auto) 0.1x10^3/uL (0.0-0.2) Sodium Level 144mmol/L (136-145) Potassium Level 4.3mmol/L (3.5-5.1) Chloride Level 113mmol/L (98-107) Carbon Dioxide Level 16mmol/L (21-32) Anion Gap 15 (6-14) Blood Urea Nitrogen 45mg/dL (8-26) Creatinine 3.3mg/dL (0.7-1.3) Estimated GFR (Cockcroft-Gault) 24.9 BUN/Creatinine Ratio 14 (6-20) Glucose Level 98mg/dL (70-99) Calcium Level 9.1mg/dL (8.5-10.1) Phosphorus Level 4.3mg/dL (2.6-4.7) Total Bilirubin 0.3mg/dL (0.2-1.0) Aspartate Amino Transf (AST/SGOT) 16U/L (15-37) Alanine Aminotransferase (ALT/SGPT) 9U/L (16-63) Alkaline Phosphatase 79U/L (46-116) Total Protein 6.1g/dL (6.4-8.2) Albumin 1.6g/dL (3.4-5.0) Albumin/Globulin Ratio 0.4 (1.0-1.7) Problem List Problems Medical Problems: (1) Small bowel obstruction Status: Acute Assessment/Plan s/p SBR start TF d/c NGT Problems: BLU HODGSON MD Sep 13, 2016 11:17
[2016-09-13] MEDS: LACOSAMIDE 100 MG in IV NORMAL SALINE 50ML 50 ML IV SCH (12:53)
--- NOTE | 2016-09-13 13:03 | PDOC ---
G I PROGRESS NOTE Subjective Non-verbal. Seems awake and tracks. Physical Exam Lungs with coarse sounds. RRR Abdomen soft, not distended. Some incisional tenderness. Review of Relevant I have reviewed the following items tiny (where applicable) has been applied. Labs Laboratory Tests Test 09/11/16 16:15 09/12/16 00:12 09/12/16 06:35 09/12/16 06:40 O2 Saturation 98% (92-99) Arterial Blood pH 7.30 (7.35-7.45) Arterial Blood pCO2 at Patient Temp 36mmHg (35-46) Arterial Blood pO2 at Patient Temp 130mmHg (75-108) Arterial Blood HCO3 17mmol/L (21-28) Arterial Blood Base Excess -9mmol/L (-3-3) FiO2 40 Glucose (Fingerstick) 94mg/dL (70-99) 100mg/dL (70-99) White Blood Count 14.0x10^3/uL (4.0-11.0) Red Blood Count 2.82x10^6/uL (4.30-5.70) Hemoglobin 8.2g/dL (13.0-17.5) Hematocrit 25.7% (39.0-53.0) Mean Corpuscular Volume 91fL (79-100) Mean Corpuscular Hemoglobin 29pg (25-35) Mean Corpuscular Hemoglobin Concent 32g/dL (31-37) Red Cell Distribution Width 16.6% (11.5-14.5) Platelet Count 262x10^3/uL (140-400) Neutrophils (%) (Auto) 67% (31-73) Lymphocytes (%) (Auto) 21% (24-48) Monocytes (%) (Auto) 12% (0-9) Eosinophils (%) (Auto) 0% (0-3) Basophils (%) (Auto) 1% (0-3) Neutrophils # (Auto) 9.3x10^3uL (1.8-7.7) Lymphocytes # (Auto) 2.9x10^3/uL (1.0-4.8) Monocytes # (Auto) 1.7x10^3/uL (0.0-1.1) Eosinophils # (Auto) 0.0x10^3/uL (0.0-0.7) Basophils # (Auto) 0.1x10^3/uL (0.0-0.2) Sodium Level 143mmol/L (136-145) Potassium Level 4.1mmol/L (3.5-5.1) Chloride Level 113mmol/L (98-107) Carbon Dioxide Level 18mmol/L (21-32) Anion Gap 12 (6-14) Blood Urea Nitrogen 40mg/dL (8-26) Creatinine 3.1mg/dL (0.7-1.3) Estimated GFR (Cockcroft-Gault) 26.7 BUN/Creatinine Ratio 13 (6-20) Glucose Level 104mg/dL (70-99) Calcium Level 9.0mg/dL (8.5-10.1) Phosphorus Level 3.8mg/dL (2.6-4.7) Magnesium Level 2.0mg/dL (1.8-2.4) Total Bilirubin 0.2mg/dL (0.2-1.0) Aspartate Amino Transf (AST/SGOT) 22U/L (15-37) Alanine Aminotransferase (ALT/SGPT) 14U/L (16-63) Alkaline Phosphatase 84U/L (46-116) Total Protein 6.4g/dL (6.4-8.2) Albumin 1.8g/dL (3.4-5.0) Albumin/Globulin Ratio 0.4 (1.0-1.7) Triglycerides Level 160mg/dL (0-150) Test 09/12/16 08:15 09/12/16 12:52 09/12/16 18:39 09/12/16 18:40 O2 Saturation 98% (92-99) 98% (92-99) Arterial Blood pH 7.33 (7.35-7.45) 7.29 (7.35-7.45) Arterial Blood pCO2 at Patient Temp 32mmHg (35-46) 37mmHg (35-46) Arterial Blood pO2 at Patient Temp 132mmHg (75-108) 136mmHg (75-108) Arterial Blood HCO3 16mmol/L (21-28) 17mmol/L (21-28) Arterial Blood Base Excess -9mmol/L (-3-3) -9mmol/L (-3-3) FiO2 40 40 Glucose (Fingerstick) 100mg/dL (70-99) 108mg/dL (70-99) Test 09/13/16 00:17 09/13/16 05:34 09/13/16 05:50 09/13/16 12:30 Glucose (Fingerstick) 100mg/dL (70-99) 91mg/dL (70-99) 114mg/dL (70-99) White Blood Count 12.2x10^3/uL (4.0-11.0) Red Blood Count 2.63x10^6/uL (4.30-5.70) Hemoglobin 7.7g/dL (13.0-17.5) Hematocrit 24.1% (39.0-53.0) Mean Corpuscular Volume 91fL (79-100) Mean Corpuscular Hemoglobin 29pg (25-35) Mean Corpuscular Hemoglobin Concent 32g/dL (31-37) Red Cell Distribution Width 16.5% (11.5-14.5) Platelet Count 267x10^3/uL (140-400) Neutrophils (%) (Auto) 61% (31-73) Lymphocytes (%) (Auto) 25% (24-48) Monocytes (%) (Auto) 11% (0-9) Eosinophils (%) (Auto) 2% (0-3) Basophils (%) (Auto) 1% (0-3) Neutrophils # (Auto) 7.4x10^3uL (1.8-7.7) Lymphocytes # (Auto) 3.1x10^3/uL (1.0-4.8) Monocytes # (Auto) 1.3x10^3/uL (0.0-1.1) Eosinophils # (Auto) 0.2x10^3/uL (0.0-0.7) Basophils # (Auto) 0.1x10^3/uL (0.0-0.2) Sodium Level 144mmol/L (136-145) Potassium Level 4.3mmol/L (3.5-5.1) Chloride Level 113mmol/L (98-107) Carbon Dioxide Level 16mmol/L (21-32) Anion Gap 15 (6-14) Blood Urea Nitrogen 45mg/dL (8-26) Creatinine 3.3mg/dL (0.7-1.3) Estimated GFR (Cockcroft-Gault) 24.9 BUN/Creatinine Ratio 14 (6-20) Glucose Level 98mg/dL (70-99) Calcium Level 9.1mg/dL (8.5-10.1) Phosphorus Level 4.3mg/dL (2.6-4.7) Total Bilirubin 0.3mg/dL (0.2-1.0) Aspartate Amino Transf (AST/SGOT) 16U/L (15-37) Alanine Aminotransferase (ALT/SGPT) 9U/L (16-63) Alkaline Phosphatase 79U/L (46-116) Total Protein 6.1g/dL (6.4-8.2) Albumin 1.6g/dL (3.4-5.0) Albumin/Globulin Ratio 0.4 (1.0-1.7) Laboratory Tests Test 09/12/16 18:39 09/12/16 18:40 09/13/16 00:17 09/13/16 05:34 Glucose (Fingerstick) 108mg/dL (70-99) 100mg/dL (70-99) 91mg/dL (70-99) O2 Saturation 98% (92-99) Arterial Blood pH 7.29 (7.35-7.45) Arterial Blood pCO2 at Patient Temp 37mmHg (35-46) Arterial Blood pO2 at Patient Temp 136mmHg (75-108) Arterial Blood HCO3 17mmol/L (21-28) Arterial Blood Base Excess -9mmol/L (-3-3) FiO2 40 Test 09/13/16 05:50 09/13/16 12:30 White Blood Count 12.2x10^3/uL (4.0-11.0) Red Blood Count 2.63x10^6/uL (4.30-5.70) Hemoglobin 7.7g/dL (13.0-17.5) Hematocrit 24.1% (39.0-53.0) Mean Corpuscular Volume 91fL (79-100) Mean Corpuscular Hemoglobin 29pg (25-35) Mean Corpuscular Hemoglobin Concent 32g/dL (31-37) Red Cell Distribution Width 16.5% (11.5-14.5) Platelet Count 267x10^3/uL (140-400) Neutrophils (%) (Auto) 61% (31-73) Lymphocytes (%) (Auto) 25% (24-48) Monocytes (%) (Auto) 11% (0-9) Eosinophils (%) (Auto) 2% (0-3) Basophils (%) (Auto) 1% (0-3) Neutrophils # (Auto) 7.4x10^3uL (1.8-7.7) Lymphocytes # (Auto) 3.1x10^3/uL (1.0-4.8) Monocytes # (Auto) 1.3x10^3/uL (0.0-1.1) Eosinophils # (Auto) 0.2x10^3/uL (0.0-0.7) Basophils # (Auto) 0.1x10^3/uL (0.0-0.2) Sodium Level 144mmol/L (136-145) Potassium Level 4.3mmol/L (3.5-5.1) Chloride Level 113mmol/L (98-107) Carbon Dioxide Level 16mmol/L (21-32) Anion Gap 15 (6-14) Blood Urea Nitrogen 45mg/dL (8-26) Creatinine 3.3mg/dL (0.7-1.3) Estimated GFR (Cockcroft-Gault) 24.9 BUN/Creatinine Ratio 14 (6-20) Glucose Level 98mg/dL (70-99) Calcium Level 9.1mg/dL (8.5-10.1) Phosphorus Level 4.3mg/dL (2.6-4.7) Total Bilirubin 0.3mg/dL (0.2-1.0) Aspartate Amino Transf (AST/SGOT) 16U/L (15-37) Alanine Aminotransferase (ALT/SGPT) 9U/L (16-63) Alkaline Phosphatase 79U/L (46-116) Total Protein 6.1g/dL (6.4-8.2) Albumin 1.6g/dL (3.4-5.0) Albumin/Globulin Ratio 0.4 (1.0-1.7) Glucose (Fingerstick) 114mg/dL (70-99) Microbiology 09/10/16 Blood Culture - Preliminary, Resulted NO GROWTH AFTER 2 DAYS Medications Current Medications Propofol (Diprivan) 100 ml @ As Directed STK-MED ONCE IV ; Start 09/10/16 at 14: 46; Stop 09/10/16 at 14:47; Status DC Pantoprazole Sodium (Protonix Vial) 40 mg [id number] IVP Last administered on 05:37; Start 09/10/16 at 18:00 Metoprolol Tartrate (Lopressor) 5 mg Q6HRS IVP Last administered on 09/13/16 12 :35; Start 09/10/16 at 18:00 Hydralazine HCl (Apresoline) 10 mg PRN Q4HRS PRN IVP ELEVATED BP, SEE COMMENTS ; Start 09/10/16 at 16:15; Stop 09/11/16 at 17:54; Status DC Sodium Bicarbonate 50 meq 50 meq 1X ONCE IV Last administered on 09/10/16 18: 25; Start 09/10/16 at 18:00; Stop 09/10/16 at 18:01; Status DC Potassium Chloride/Sodium Chloride 1,000 ml @ 150 mls/hr Q6H40M IV Last administered on 09/11/16 06:07; Start 09/10/16 at 20:00; Stop 09/11/16 at 08:03; Status DC Magnesium Sulfate/ Dextrose 100 ml @ 25 mls/hr 1X ONCE IV Last administered on 09/10/16 20:31; Start 09/10/16 at 20:00; Stop 09/10/16 at 23:59; Status DC Micafungin Sodium 100 mg/Dextrose 100 ml @ 100 mls/hr Q24H IV Last administered on 09/12/16 19:33; Start 09/10/16 at 20:00 Propofol (Diprivan) 100 ml @ 0 mls/hr CONT PRN IV SEE I/O RECORD Last administered on 09/12/16 07:28; Start 09/10/16 at 20:00 Hydralazine HCl (Apresoline) 10 mg Q6HRS IVP Last administered on 09/13/16 12: 36; Start 09/11/16 at 00:00 Fentanyl Citrate (Fentanyl 2ml Vial) 25 mcg PRN Q6HRS PRN IV MILD-MOD PAIN; Start 09/10/16 at 20:45 Lorazepam 0.5 mg 0.5 mg PRN Q6HRS PRN IV ANXIETY / AGITATION Last administered on 09/13/16 00:12; Start 09/10/16 at 20:45 Erythromycin Lactobionate/ Sodium Chloride (Erythrocin/Iv Sodium Chloride 0.9% 100ml) 100 ml @ 100 mls/hr Q6HRS IV Last administered on 09/13/16 12:34; Start 09/11/16 at 00:00 Ondansetron HCl (Zofran) 4 mg PRN Q8HRS PRN IV NAUSEA/VOMITING; Start 09/10/16 at 20:45 Acetaminophen (Tylenol) 650 mg PRN Q6HRS PRN PEG MILD PAIN / TEMP; Start at 20:45 Amlodipine Besylate (Norvasc) 5 mg DAILY PO ; Start 09/11/16 at 09:00; Stop at 09:00; Status DC Metoclopramide HCl (Reglan) 10 mg PRN Q8HRS PRN IV NAUSEA/VOMITING; Start at 20:45; Stop 09/11/16 at 06:00; Status DC Miconazole Nitrate (Monistat-Derm) 1 rk BID TP ; Start 09/10/16 at 21:00; Stop 09/10/16 at 21:24; Status DC Sodium Chloride (Normal Saline Flush 3ml) 3 ml QSHIFT PRN IV AFTER MEDS AND BLOOD DRAWS; Start 09/10/16 at 20:45 Lacosamide (Vimpat) 100 mg DAILY10 PO ; Start 09/11/16 at 10:00; Stop 09/11/16 at 10:00; Status DC Amlodipine Besylate (Norvasc) 5 mg DAILY PEG Last administered on 09/13/16 09: 23; Start 09/11/16 at 09:00 Lacosamide (Vimpat) 100 mg DAILY10 PEG ; Start 09/11/16 at 10:00; Stop 09/11/16 at 10:00; Status DC Albuterol/ Ipratropium (Duoneb) 3 ml RTQID NEB Last administered on 09/13/16 11 :55; Start 09/11/16 at 08:00 Amiodarone HCl 200 mg 200 mg DAILY PEG ; Start 09/11/16 at 09:00; Stop 09/11/16 at 17:54; Status DC Cefepime HCl/ Sodium Chloride (Maxipime/Iv Sodium Chloride 0.9% 100ml) 100 ml @ 200 mls/hr Q12HR IV Last administered on 09/13/16 09:23; Start 09/10/16 at 22: 00 Alteplase, Recombinant (Cathflo) 2 mg 1X ONCE INT CAT Last administered on 09/10 21:48; Start 09/10/16 at 22:00; Stop 09/10/16 at 22:01; Status DC Miconazole Nitrate 1 rk 1 rk BID TP Last administered on 09/13/16 09:39; Start 09/11/16 at 09:00 Cefazolin Sodium/ Dextrose 50 ml @ 100 mls/hr PREOP PRN PRN IV PREOP; Start at 07:00; Stop 09/12/16 at 06:59; Status DC Sodium Chloride 1,000 ml @ 1,000 mls/hr 1X ONCE IV Last administered on 02:22; Start 09/11/16 at 02:30; Stop 09/11/16 at 03:29; Status DC Sodium Chloride (Iv Sodium Chloride 0.9% 500ml Bag) 500 ml @ 500 mls/hr 1X ONCE IV Last administered on 09/11/16 01:00; Start 09/11/16 at 01:00; Stop at 02:21; Status DC Metoclopramide HCl (Reglan) 10 mg Q8HRS IV Last administered on 09/13/16 05:37 ; Start 09/11/16 at 06:00 Dexamethasone Sodium Phosphate (Decadron) 20 mg STK-MED ONCE .ROUTE ; Start 09/11 at 07:36; Stop 09/11/16 at 07:37; Status DC Ondansetron HCl 4 mg 4 mg STK-MED ONCE .ROUTE ; Start 09/11/16 at 07:36; Stop 09/11/16 at 07:37; Status DC Propofol (Diprivan) 20 ml @ As Directed STK-MED ONCE IV ; Start 09/11/16 at 07:36 ; Stop 09/11/16 at 07:37; Status DC Fentanyl Citrate (Fentanyl 2ml Vial) 100 mcg STK-MED ONCE .ROUTE ; Start at 07:37; Stop 09/11/16 at 07:38; Status DC Rocuronium [place] (Zemuron) 50 mg STK-MED ONCE .ROUTE ; Start 09/11/16 at 07:37 ; Stop 09/11/16 at 07:38; Status DC Desflurane 60 ml 60 ml STK-MED ONCE IH ; Start 09/11/16 at 07:37; Stop 09/11/16 at 07:38; Status DC Cefazolin Sodium/ Dextrose 50 ml @ 100 mls/hr 1X PREOP IV Last administered on 09/11/16 08:48; Start 09/11/16 at 08:00 Lacosamide/Sodium Chloride (Vimpat/Iv Sodium Chloride 0.9% 50ml) 60 ml @ 120 mls/hr DAILY10 IV Last administered on 09/13/16 12:53; Start 09/11/16 at 10:00 Propofol (Diprivan) 1,000 mg STK-MED ONCE IV ; Start 09/10/16 at 14:46; Stop 09/11 at 08:09; Status DC Ephedrine Sulfate 50 mg STK-MED ONCE IV ; Start 09/11/16 at 08:27; Stop 09/11/16 at 08:28; Status DC Phenylephrine HCl 1 mg STK-MED ONCE IV ; Start 09/11/16 at 08:34; Stop 09/11/16 at 08:35; Status DC Bupivacaine HCl/ Epinephrine Bitart (Sensorcain-Mpf Epi 0.5%-1:[id number]) 30 ml STK -MED ONCE INJ Last administered on 09/11/16 08:32; Start 09/11/16 at 08:32; Stop 09/11/16 at 08:48; Status DC Morphine Sulfate 10 mg STK-MED ONCE .ROUTE ; Start 09/11/16 at 09:02; Stop at 09:03; Status DC Midazolam HCl (Versed) 2 mg STK-MED ONCE .ROUTE ; Start 09/11/16 at 09:03; Stop 09/11/16 at 09:04; Status DC Enoxaparin Sodium (Lovenox 40mg Syringe) 40 mg Q24H SQ ; Start 09/11/16 at 11:00 ; Stop 09/12/16 at 09:42; Status DC Sodium Chloride 3 ml 3 ml QSHIFT PRN IV AFTER MEDS AND BLOOD DRAWS; Start at 09:30 Sodium Chloride/ Potassium Chloride/ Potassium Phosphate/ Magnesium Sulfate/ Calcium Gluconate/ Multivitamins/ Chromium/Copper/ Manganese/Seleni/ Zn/Total Parenteral Nutrition/Amino Acids/Dextrose (Sodium Chloride/ Potassium Phosphate / Infuvite Adult/ Multitrace-5 Co... 1,512 ml @ 63 mls/hr TPN CONT IV ; Start 09/11/16 at 22:00; Stop 09/11/16 at 22:00; Status DC Info 1 each PRN DAILY PRN MC SEE COMMENTS Last administered on 09/11/16 16:08; Start 09/11/16 at 16:00; Stop 09/11/16 at 17:55; Status DC Fentanyl Citrate 50 mcg 50 mcg PRN Q2HR PRN IV SEVERE PAIN Last administered on 09/13/16 05:51; Start 09/11/16 at 17:15 Potassium Chloride 30 meq/ Sodium Chloride 1,015 ml @ 40 mls/hr Q24H IV ; Start 09/11/16 at 18:00; Stop 09/12/16 at 16:19; Status DC Potassium Chloride/Sodium Chloride (Iv Sodium Chloride 0.45%) 1,015 ml @ 40 mls /hr Q24H IV ; Start 09/11/16 at 18:00; Status Cancel Info 1 each PRN DAILY PRN MC SEE COMMENTS Last administered on 09/13/16 10:58; Start 09/11/16 at 19:15 Sodium Bicarbonate 100 meq 100 meq 1X ONCE IV Last administered on 09/11/16 19 :37; Start 09/11/16 at 19:30; Stop 09/11/16 at 19:31; Status DC Sodium Chloride/ Potassium Chloride/ Potassium Phosphate/ Magnesium Sulfate/ Calcium Gluconate/ Multivitamins/ Chromium/Copper/ Manganese/Seleni/ Zn/Total Parenteral Nutrition/Amino Acids/Dextrose (Sodium Chloride/ Potassium Phosphate / Infuvite Adult/ Multitrace-5 Co... 1,512 ml @ 63 mls/hr TPN CONT IV Last administered on 09/11/16 22:18; Start 09/11/16 at 22:00; Stop 09/12/16 at 21:59; Status DC Insulin Aspart (Novolog) Q6HRS SQ ; Start 09/12/16 at 12:00 Metronidazole (FLAGYL 500Mmg PREMIX) 500 mg STK-MED ONCE IV ; Start 09/11/16 at 09:20; Stop 09/12/16 at 08:54; Status DC Heparin Sodium (Porcine) 5,000 unit Q12HR SQ Last administered on 09/13/16 09: 37; Start 09/12/16 at 10:00 Info 1 each 1 each PRN DAILY PRN MC SEE COMMENTS; Start 09/12/16 at 09:45 Sodium Chloride 45 meq/Potassium Chloride 25 meq/ Potassium Acetate 25 meq/ Potassium Phosphate 13.6 mmol/Magnesium Sulfate 10 meq/ Multivitamins 10 ml/ Chromium/ Copper/Manganese/ Seleni/Zn 1 ml/ Total Parenteral Nutrition/Amino Acids/Dextrose 1,512 ml @ 63 mls/hr TPN CONT IV Last administered on 22:06; Start 09/12/16 at 22:00; Stop 09/13/16 at 21:59 Sodium Acetate/ Potassium Acetate/ Potassium Phosphate/ Magnesium Sulfate/ Multivitamins/ Chromium/Copper/ Manganese/Seleni/ Zn/Total Parenteral Nutrition/ Amino Acids/Dextrose (Potassium Phosphate/ Infuvite Adult/ Multitrace-5 Conc/ Tpn - Tpn Fluid/ Trophamine/ Dextr... 1,512 ml @ 63 mls/hr TPN CONT IV ; Start 09/13/16 at 22:00; Stop 09/14/16 at 21:59 Active Scripts Active Reported Amiodarone Hcl 200 Mg Tablet 1 Tab PEG DAILY Docusate Sodium 100 Mg Capsule 100 Mg PEG BID Miconazole Nitrate 130 Gm Aero.powd 130 Gm TP PRN PRN Reglan (Metoclopramide Hcl) 10 Mg Tablet 10 Mg IV Q8HRS Amlodipine Besylate 10 Mg Tablet 10 Mg PEG DAILY Acetaminophen 160 Mg/5 Ml Solution 650 Mg PEG PRN Q6HRS PRN Ondansetron Odt (Ondansetron) 4 Mg Tab.rapdis 4 Mg PEG Q8HRS PRN Ondansetron Hcl 4 Mg/2 Ml Syr (Ondansetron Hcl/Pf) 4 Mg/2 Ml Disp.syrin 4 Mg IV PRN Q8HRS PRN Duoneb 0.5-3(2.5) Mg/3 Ml (Albuterol/Ipratropium) 3 Ml Ampul.neb 3 Ml NEB BID Pantoprazole Sodium 40 Mg Tablet.dr 40 Mg IV DAILY Cefepime Hcl 2 Gm Vial 2 Gm IV Q12HR Erythrocin Lactobionate (Erythromycin Lactobionate) 500 Mg Vial 125 Mg IV Q6HRS Eraxis (Water Diluent) (Anidulafungin) 100 Mg Vial 100 Mg IV DAILY Lorazepam 0.5 Mg Tablet 0.5 Mg IV PRN Q6HRS PRN FENTANYL 25mcg/hr (Fentanyl) 1 Each Patch.td72 25 Mcg IV PRN Q6HRS PRN Hydralazine Hcl 10 Mg Tablet 10 Mg IV Q6HRS Vimpat (Lacosamide) 1 Each Tab.ds.pk 100 Mg PO DAILY Vitals/I & O Vital Sign - Last 24 Hours 09/12/16 09/12/16 09/12/16 09/12/16 14:00 15:00 16:00 16:00 Temp 98.4 98.4 Pulse 88 90 Resp 15 16 B/P 138/62 143/73 Pulse Ox 100 100 100 O2 Delivery Ventilator Ventilator Mechanical Ventilator Ventilator 09/12/16 09/12/16 09/12/16 09/12/16 17:00 17:15 18:00 18:36 Pulse 101 94 94 Resp 22 20 B/P 112/67 137/70 137/70 Pulse Ox 100 100 100 O2 Delivery Ventilator Ventilator Ventilator 09/12/16 09/12/16 09/12/16 09/12/16 18:43 18:50 19:00 20:00 Temp 98.4 98.4 Pulse 94 90 92 Resp 15 16 B/P 137/70 124/60 169/83 Pulse Ox 100 100 O2 Delivery Ventilator Ventilator Ventilator 09/12/16 09/12/16 09/12/16 09/12/16 20:00 20:54 21:00 22:00 Pulse 95 100 Resp 13 8 B/P 160/76 119/59 Pulse Ox 100 100 100 O2 Delivery Mechanical Ventilator Ventilator Ventilator Ventilator 09/12/16 09/12/16 09/13/16 09/13/16 22:06 23:00 00:00 00:00 Pulse 88 82 Resp 17 7 B/P 134/67 140/65 Pulse Ox 100 100 O2 Delivery Ventilator Ventilator Mechanical Ventilator 09/13/16 09/13/16 09/13/16 09/13/16 00:00 00:04 00:20 01:00 Temp 98.3 98.3 Pulse 95 101 87 Resp 20 15 B/P 140/75 140/75 100/56 Pulse Ox 100 100 100 O2 Delivery Ventilator Ventilator Ventilator 09/13/16 09/13/16 09/13/16 09/13/16 01:13 02:00 02:06 03:00 Pulse 86 86 Resp 15 16 16 B/P 119/65 119/65 Pulse Ox 100 100 100 100 O2 Delivery Ventilator Ventilator Ventilator Ventilator 09/13/16 09/13/16 09/13/16 09/13/16 04:00 04:00 04:00 04:06 Temp 98.5 98.5 Pulse 82 Resp 15 B/P 125/70 Pulse Ox 100 100 O2 Delivery Ventilator Mechanical Ventilator Ventilator 09/13/16 09/13/16 09/13/16 09/13/16 05:00 05:36 05:37 05:37 Pulse 84 84 84 Resp 15 16 B/P 116/63 116/63 116/63 Pulse Ox 100 100 O2 Delivery Ventilator Ventilator 09/13/16 09/13/16 09/13/16 09/13/16 05:51 06:00 06:12 07:00 Pulse 82 77 Resp 16 15 16 B/P 138/81 124/67 Pulse Ox 100 100 100 99 O2 Delivery Ventilator Ventilator Ventilator Ventilator 09/13/16 09/13/16 09/13/16 09/13/16 07:41 07:50 08:00 08:00 Temp 98.2 98.2 Pulse 88 Resp 14 B/P 151/78 Pulse Ox 100 100 O2 Delivery Ventilator Ventilator BiPAP/CPAP Mechanical Ventilator 09/13/16 09/13/16 09/13/16 09/13/16 09:00 09:16 09:23 09:27 Pulse 84 90 Resp 12 B/P 143/68 143/68 Pulse Ox 100 98 99 O2 Delivery BiPAP/CPAP Ventilator Tracheal Collar 09/13/16 09/13/16 09/13/16 09/13/16 10:00 11:56 12:35 12:36 Pulse 92 92 90 Resp 18 B/P 137/68 151/72 151/72 Pulse Ox 100 99 O2 Delivery trach shield Tracheal Collar O2 Flow Rate 10.0 Intake and Output 09/12/16 09/12/16 09/13/16 15:00 23:00 07:00 Intake Total 190.46 ml 991.42 ml 1386 ml Output Total 215 ml 637 ml 435 ml Balance -24.54 ml 354.42 ml 951 ml Problem List Problems Medical Problems: (1) Small bowel obstruction Status: Acute Assessment S/p lap with SBR for strictures, path pending. Plan of Care: Continue current Tx, Mgmt Plan of Care Note Await path. DIDIER OZUNA MD Sep 13, 2016 13:03
[2016-09-13] MEDS ORDERED: TOTAL PARENTERAL NUTRITION IV SCH ×8 (22:00)
[2016-09-13] MEDS ORDERED: [UNRECOGNIZED DRUG - OTHER] IV SCH ×8 (22:00)
[2016-09-13] MEDS ORDERED: AMINO ACIDS IV SCH ×8 (22:00)
[2016-09-13] MEDS ORDERED: DEXTROSE 70% IV SCH ×8 (22:00)
--- NOTE | 2016-09-14 13:13 | PATHOLOGY ---
PATHOLOGY REPORT * * * * * * * * FINAL DIAGNOSIS: Segment of small bowel and attached mesentery, ileum segmental resection: - Active chronic ileitis, with segmental foci of ulceration and stenosis. See comment. - Serosal fibrosis and adhesions, focal. - Reactive changes of mesenteric lymph nodes. COMMENT: Sections of the ileum segmental resection reveal an active chronic ileitis with segmental foci of ulceration and stenosis. There are no granulomas or specific features. The differential diagnosis includes Crohn's disease, enteric infectious process, and NSAID's. (DORAM:; d/t: 09/13/16) REPORT ELECTRONICALLY SIGNED BY: Sunny Abreu M.D. DATE/TIME: 09/14/2016 13:12 * * * * * * * * GROSS PATHOLOGY: The specimen is received fresh for intraoperative consultation and is designated "small bowel." This consists of a curved segment of small bowel with attached mesentery. The segment is stapled closed at both ends. There is a suture attached to one of the stapled ends which denotes the distal margin. The segment measures 55 cm in length. Approximately 3.5 cm from the proximal stapled end, there is an area of stricture of the small bowel. Approximately 7.5 cm from the distal margin, there is another area of stricture of the small bowel. There are hemorrhagic adhesions of the antimesocolic serosa extending from this area of stricture to near the distal margin. The serosa is woodson-cruz and somewhat dull. The small bowel between the areas of stricture is dilated up to 4.5 cm. The attached mesentery measures up to 6 cm in depth. The segment is opened along the antimesocolon. Approximately 3.5 cm from the proximal margin, there is a short segment of circumferential area of ulceration and pink granularity of the mucosa involving a segment of small bowel measuring approximately 2.5 cm in length. This is associated with luminal narrowing and stenosis. Approximately 3 cm from the distal margin, there is similar appearing circumferential ulceration and granularity of the mucosa involving a segment of small bowel measuring approximately 5 cm in length. This also is associated with luminal narrowing and stenosis. The mucosa between the two areas of stricture and ulceration have a yellow-green normal transversely folded appearance. There is no evidence of malignancy. (DORAM:; d/t: 09/11/16) After overnight formalin fixation, the specimen is re-examined. The bowel wall thickness ranges from 0.2-0.4 cm. The central portion of the mesenteric fat displays an overlying focal area of white-cruz and membranous soft tissue. Dissection of the mesenteric fat reveals multiple pink-cruz lymph nodes ranging from 0.3-1.1 cm in greatest dimension. [employer] sections are submitted as follows: A1 proximal margin, en face A2 distal margin, en face A3 mucosal ulceration and stricture at proximal end A4-A5 mucosal ulceration and stricture at distal end A6 mucosa between the areas of stricture and ulceration A7 white-cruz soft tissue overlying mesenteric fat A8-A9 multiple intact and possible lymph nodes (TTL; 09/12/2016) INTRAOPERATIVE CONSULTATION (Bakari Abreu M.D.) Segment of small bowel and attached mesentery, segmental resection: - Short segment of ulceration and stenosis of proximal small bowel. - Longer segment of ulceration and stenosis of distal small bowel. - No evidence of malignancy. The results are displayed to Dr. John in the pathology area. The specimen is fixed in formalin prior to additional sectioning. (JPM:; d/t: 09/11/16) Testing performed by [place] [place] [address] INITIAL CPT CODE(S): A; 62696, 01941 Professional services performed by [facility] at [address] [address] Technical services performed by [facility] at [address] [place] [address] [address], [place] [address]. [facility] fax: [phone] SPECIMEN(S) RECEIVED: A.Small bowel CLINICAL HISTORY: None Provided PATIENT: CHRISTOPHER SHANKAR /AGE: 9 1975 (Age: 41) PATIENT #: [id number] ALT CASE #: SPECIMEN COLLECTION DATE: 09/11/2016 SPECIMEN RECEIVED DATE: 09/11/2016 [facility] - [address] [place] [address] - PHONE: [phone] * * * END OF REPORT * * *
== END 2016-09-13 15:45 | DRG 264 ==
LOC: 1 WEST ICU 14:26
PROVIDERS: ADMIT Internal Medicine; ATTEND Internal Medicine
PROC: 0DN80ZZ Release Small Intestine, Open Approach (ICD-10-PCS; 2016-09-11)
PROC: 0DB80ZZ Excision of Small Intestine, Open Approach (ICD-10-PCS; principal; 2016-09-11 08:00)
PROC: 5A1945Z Respiratory Ventilation, 24-96 Consecutive Hours (ICD-10-PCS; 2016-09-13)
DX: T80.211A Bloodstream infection due to central venous catheter, initial encounter (principal); B37.7 Candidal sepsis; E43 Unspecified severe protein-calorie malnutrition; G93.40 Encephalopathy, unspecified; J18.9 Pneumonia, unspecified organism; J96.20 Acute and chronic respiratory failure, unspecified whether with hypoxia or hypercapnia; N18.6 End stage renal disease; K56.5 Intestinal adhesions [bands] with obstruction (postinfection); K56.69 Other intestinal obstruction; B49 Unspecified mycosis; I50.32 Chronic diastolic (congestive) heart failure; K86.2 Cyst of pancreas; K91.89 Other postprocedural complications and disorders of digestive system; N17.9 Acute kidney failure, unspecified; I13.2 Hypertensive heart and chronic kidney disease with heart failure and with stage 5 chronic kidney disease, or end stage renal disease; Z99.11 Dependence on respirator [ventilator] status; I69.351 Hemiplegia and hemiparesis following cerebral infarction affecting right dominant side; D49.0 Neoplasm of unspecified behavior of digestive system; D64.9 Anemia, unspecified; D73.5 Infarction of spleen; E11.22 Type 2 diabetes mellitus with diabetic chronic kidney disease; E78.5 Hyperlipidemia, unspecified; E83.42 Hypomagnesemia; G40.909 Epilepsy, unspecified, not intractable, without status epilepticus; I25.10 Atherosclerotic heart disease of native coronary artery without angina pectoris; I48.91 Unspecified atrial fibrillation; I71.2 Thoracic aortic aneurysm, without rupture; K21.0 Gastro-esophageal reflux disease with esophagitis; K26.9 Duodenal ulcer, unspecified as acute or chronic, without hemorrhage or perforation; K27.9 Peptic ulcer, site unspecified, unspecified as acute or chronic, without hemorrhage or perforation; K31.9 Disease of stomach and duodenum, unspecified; K52.9 Noninfective gastroenteritis and colitis, unspecified; R13.10 Dysphagia, unspecified; Y84.8 Other medical procedures as the cause of abnormal reaction of the patient, or of later complication, without mention of misadventure at the time of the procedure; Z82.49 Family history of ischemic heart disease and other diseases of the circulatory system; Z83.3 Family history of diabetes mellitus; Z53.31 Laparoscopic surgical procedure converted to open procedure; Z88.8 Allergy status to other drugs, medicaments and biological substances; Z86.718 Personal history of other venous thrombosis and embolism; Z86.79 Personal history of other diseases of the circulatory system; Z93.0 Tracheostomy status; Z93.1 Gastrostomy status; Z99.2 Dependence on renal dialysis
CPT/HCPCS: 36415; 36600; 71010; 74022; 80053; 82805; 82947; 83605; 83735; 84100; 84478; 85027; 85610; 86850; 86900; 86901; 87040; 87641; 88307; 93005; 93306; 94002; 94003; 94640; C9113; C9254; J0360; J0610; J0690; J0692; J1100; J1364; J1815; J2060; J2248; J2250; J2270; J2370; J2405; J2704; J2765; J2997; J3010; J3475; J3480; J3490; J7030; J7040; J7620